=== PATIENT | female | born 1940 | race Caucasian/White ===

== ENCOUNTER 2023-10-03 00:27 | Inpatient (IN) | payer OTHER, SELFPAY ==
[2023-10-02 22:46] VITALS: BP 126/79; BMI 17.8
[2023-10-02 22:48] VITALS: BP 126/79
[2023-10-02 23:00] VITALS: BP 120/78
[2023-10-02 23:08] LABS: % Basophils 0.8 % (0-2); % Eosinophils 4.6 % (0-6); % Immature Granulocytes 0.3 % (0-0.5); % Lymphocytes 21.7 % (20.5-51.1); % Neutrophils 63.6 % (42.2-75.2); Absolute Basophils 0.1 10^3/uL (0-0.2); Absolute Eosinophils 0.3 10^3/uL (0-0.7); Absolute Lymphocytes 1.4 10^3/uL (1.2-3.4); Absolute Monocytes 0.6 10^3/uL (0.1-0.6); Absolute Neutrophils 4.2 10^3/uL (1.4-6.5); Hematocrit 35.6 % (37.0-47.0); Hemoglobin 12.2 g/dL (12.0-16.0); Mean Corp Hgb Conc. 34.3 g/dL (33.0-37.0); Mean Corpuscular Volume 99.2 fL (81.0-99.0); Mean Platelet Volume 9.1 fL (7.4-10.4); Nucleated Red Blood Cells % 0 %; Platelet Count 237 10^3/uL (130-400); Red Blood Cell Count 3.59 10^6/uL (4.20-5.40); Red Cell Dist. Width 14.1 % (11.5-14.5); White Blood Cell Count 6.6 10^3/uL (4.8-10.8)
--- NOTE | 2023-10-02 23:25 | ED.GENMED ---
History of Present Illness
General
Chief Complaint: Fall
Time Seen by Provider: 10/02/23 23:25
Travel History
Have you had any contact with someone who has COVID-19?: No
Do you have any symptoms of coronavirus? Fever > 100 degrees, chills, cough, shortness of breath, sore throat, loss of taste or smell, muscle aches, or headache?: No
History of Present Illness
History of Present Illness:
HPI: Patient came in from home by ambulance. She was going up a few steps and fell as she lost her balance. She primarily complains of left hip pain. She is on Eliquis but did not strike her head. She was unable to walk after the injury.
EXAM:
GENERAL: Well appearing in no distress
HEENT: Moist oral mucosa
CARDIOVASCULAR: No murmurs, normal heart rate, regular rhythm, No chest wall tenderness
PULMONARY: No respiratory distress, breath sounds are clear and equal
ABDOMEN: Soft with no peritoneal signs, no tenderness
NEUROLOGIC: Excellent strength all extremities, no coordination deficits
PSYCHIATRIC: Appropriate mental status, normal insight and judgement, however there may be some mild cognitive deficits
EXTREMITIES: There is markedly decreased active range of motion at the left hip. There is pain with pelvic squeeze on the left side, there is pain with passive range of motion into rotation at the left hip
SKIN: No rash, no lesions
TIME OF INITIAL ENCOUNTER: 11:30 PM
NUMBER AND COMPLEXITY OF PROBLEMS ADDRESSED AT THE ENCOUNTER
� Chronic conditions affecting care: A-fib on Eliquis, Raynaud's, SVT/PAT, anemia
� Acute Exacerbation and/or Progression of Chronic Illness: This is an acute problem
� Differential Diagnosis includes: Hip fracture, hip dislocation, pelvis contusion, pelvis fracture
AMOUNT AND/OR COMPLEXITY OF DATA TO BE REVIEWED AND ANALYZED
� I performed an independent evaluation of and my interpretation is:
EKG:
CT:
X-rays: I personally reviewed x-rays of the left hip and femur which suggest left intertrochanteric fracture
Laboratory Studies: CBC unremarkable, chemistries unremarkable
Other:
� Review of other/old records: I reviewed records, the patient was admitted here about a year ago with heart failure
� Clinical information was obtained by an independent historian: I spoke to at bedside
� Prescriptions/Medications Considered but not given:
� Further testing considered but not performed:
RISK OF COMPLICATIONS AND/OR MORBIDITY OR MORTALITY OF PATIENT MANAGEMENT
� Social determinants of health affecting care: Lives at home
� Discussion with other providers: Notified Dr. Parker, orthopedics; Dr. Tomas for admission at 11:50 PM
� Escalation of care including admission/observation vs risk of discharge considered: The patient comes in from home and imaging suggests left intertrochanteric fracture based on my reading. Basic labs unremarkable. Morphine
given for pain.
Past History
Past History
ED Past Medical History: Arrthythmia (Atrial fibrillation on Eliquis), Cancer (Breast with Left mastectomy), CHF, Hypercholesterolemia and Other (Renal syndrome, lymphedema, cataracts); Negative IDDM or NIDDM
ED Past Surgical History: Tonsilectomy and Other (Mastectomy, tooth extraction)
Social History
Tobacco: Former smoker
Alcohol: None
Drug: None
Personal:
Living: with family
Employment: Retired
Family History
Family History: Other (Noncontributory)
Phy Exam
Physical Exam
Physical Exam:
See HPI
Course
Orders/Labs/Results
Orders:
Orders
10/02/23 22:53
Hip, Left 2-3 Views [CR Hip - LT w/wo Pel 2-3 Vw*] Urgent
Comment:
Reason For Exam: fall
Include a pelvis x-ray?: Yes
10/02/23 23:00
Flush (0.9% Sodium Chloride) [Flush (Nss)] See Dose Instructions IV PER PROTOCOL
Femur, Left 2 View [CR Femur - Left Min 2 Vw] Urgent
Comment:
Reason For Exam: fall
10/02/23 23:01
CMP [Comprehensive Metabolic Panel] Urgent
Complete Blood Count/With Diff Urgent
10/02/23 23:38
Morphine Sulfate 2 mg IV NOW STA
Ondansetron Injectable [Zofran] 4 mg IV NOW STA
10/03/23 00:05
EKG [Electrocardiogram (*1)] Routine
Reason for Study: PreOp
10/03/23 00:11
Admit/Transfer Patient As Directed
Co-Sign Provider:
Level of Care: Inpatient admission
Assign to:: Telemetry
Physician / Group: raul
Diagnosis: Suspect acute Lt Hip fx, acute ambulatory dysfunction s/p Fall
Reason for Telemetry: Arrhythmia
Date to Stop Telemetry: 10/06/23
Time to Stop Telemetry: 11:00
Reason for Hospitalization: Suspect acute Lt Hip fx, acute ambulatory dysfunction s/p Fall
Expected length of stay greater than two midnights?: Yes
ELOS- Estimated Length of Stay in days: 3
I certify the patient meets the requirements for IP care: Yes
10/03/23 00:13
Code Status As Directed
Resuscitation Status: Full Code
10/03/23 01:13
HYDROmorphone [Dilaudid] 0.25 mg IV Q3HPRN PRN
Magnesium Hydroxide [Milk of Magnesia] 30 ml PO DAILYPRN PRN
Oxycodone [Roxicodone] 5 mg PO Q4HPRN PRN
Tamsulosin [Flomax] 0.4 mg PO DAILYPRN PRN
10/03/23 01:13
ORTHOPEDIC CONSULT Routine
Consulting Provider: Tommy Parker
Was physician already notified: Yes
Reason for consult: Suspect acute Lt Hip fx, acute ambulatory dysfunction s/p Fall
Activity As Directed
Activity Level: With Assistance
Bladder Scan As Directed
Follow Bladder Retention/Intermittent Cath Algorithm?: Yes
PRN if no void in __ hours: 6
Comment: if not voiding 6 hrs upon arrival to floor, bladder scan & follow algorithm
Intake/ Output As Directed
Frequency: Per unit guidelines
Pneumatic Compression Sleeves As Directed
Type: Knee high
Straight Cath As Directed
Frequency: Per Retention Algorithm
Additional Instructions: straight cath as needed per acute urinary retention algorithm for 24 hrs
Additional Instructions: for bladder scan greater than 400 mL
Vital Signs As Directed
Frequency: Per unit guidelines
DX Deep Vein Thrombosis Video Routine
10/03/23 04:00
Acetaminophen [Tylenol] 650 mg PO Q4HWA
10/03/23 Breakfast
NPO
Allow oral meds: Yes
Allow clear liquids: Sips of Clears
NPO with Ice Chips: Yes
10/03/23 08:00
Dapagliflozin [Farxiga] 10 mg PO DAILY
Furosemide [Lasix] 20 mg PO DAILY
Sotalol [Betapace] 80 mg PO DAILY
10/03/23 20:00
Docusate Sodium [Colace] 100 mg PO BID
Sennosides [Senokot] 17.2 mg PO BID
10/06/23 11:00
DC Protocol for Telemetry ONCE
Abnormal Lab Results
10/02/23
23:01
RBC 3.59 L 10^6/uL
(4.20-5.40)
Hct 35.6 L %
(37.0-47.0)
MCV 99.2 H fL
(81.0-99.0)
MCH 34.0 H pg
(27.0-31.0)
BUN 19 H mg/dl
(7-17)
10/02/23 23:01
10/02/23 23:01
Vital Signs
Initial and Last Documented VS:
Initial Vital Signs
Temp Pulse Resp BP Pulse Ox
97.8 F 66 12 126/79 91
10/02/23 22:46 10/02/23 22:46 10/02/23 22:46 10/02/23 22:46 10/02/23 22:46
Last Documented Vital Signs
Temp Pulse Resp BP Pulse Ox
97.8 F 66 12 126/79 91
10/02/23 22:46 10/02/23 22:46 10/02/23 22:46 10/02/23 22:46 10/02/23 22:46
*Critical Care Note
Total Time (30-74mins, 75-104mins- exclusive of procedures): Not Applicable
ED Attending Note
-
Portions of this chart may have been created with voice recognition software.� Occasional wrong word or��sound alike� substitutions may have occurred due to the inherent limitations of voice recognition software.
Discharge Plan
Departure
Patient Disposition: Admit
Date of Disposition: 10/02/23
Time of Disposition: 23:45
Presentation/result/management discussed w/ accepting MD/DO: Hospitalist
Discharge Problem:
Closed fracture of left hip
Interventions
Interventions:
*Risk Screen - Suicide Last Done: 10/02/23 22:46
*General Assessment Last Done: 10/02/23 22:46
*Neglect/Abuse Screening Last Done: 10/02/23 22:46
ED- Fall Risk Assessment Last Done: 10/02/23 23:00
*ED COVID-19 Vaccine History Last Done: 10/02/23 22:46
*Nursing Disposition Last Done: 10/03/23 01:07
ED-Musculoskeletal Assessment Last Done: 10/02/23 23:48
ED- Neurological Assessment Last Done: 10/02/23 23:00
ED-Skin Assessment Last Done: 10/02/23 23:48
Discharge Date and Time
Discharge Date/Time: 10/03/23 01:07
[2023-10-02] MEDS: MORPHINE SULFATE 2 MG IV (23:45)
[2023-10-02] MEDS: ZOFRAN 4 MG IV (23:45)
[2023-10-02 23:50] LABS: ALT (SGPT) 14 U/L (0-35); AST (SGOT) 30 U/L (14-36); Alkaline Phosphatase 82 U/L (38-126); Blood Urea Nitrogen 19 mg/dl (7-17); Calcium 9.3 mg/dl (8.4-10.2); Carbon Dioxide 28 mmol/L (22-30); Chloride 101 mmol/L (98-107); Estimated Creatinine Clearance 55 ml/min; Glucose 96 mg/dl (70-99); Potassium 4.3 mmol/L (3.5-5.1); Sodium 137 mmol/L (135-145); Total Bilirubin 0.6 mg/dl (0.2-1.3); eGFR > 60.00
[2023-10-03] VITALS (15 sets, daily range): BP systolic 96–137; BP diastolic 46–77; BMI 17.5; BMI 17.4
--- NOTE | 2023-10-03 00:06 | HPS.HSE ---
Family Physician
-
Family Physician: Pete Ochoa PA-C
Chief Complaint
-
fall and Lt hip pain
History of Present Illness
82F BIB EMS HX Prx AF on Sotalol and chr Eliquis, HX HFpEF seen at ER for fall and can�t walk due to left hip pain,
Evaluation fo fall:
- report she loss balance when going up the steps
- Then fall on the Lt hip but denied head strike
- Lt hip pain immediately and unable wt bear and walk
Medical History
Past Medical History
Past Medical History: Reports Other
Additional Past Medical History:
Paroxysmal Atrial Fibrillation
Cognitive Impairment
Breast CA s/p Left Mastectomy
Past Surgical History: Reports Other
Additional Past Surgical History:
Left Mastectomy with Lymph Node Dissection
Catarats
Social History
Tobacco: Former Smoker
Alcohol: Occasional
Personal:
Living: With Family
Family History
Family History: Not pertinent
Allergies / Home Medications
Allergies reflects when Allergies were last updated in [facility].
Home Medications with original date entered in [facility]
Allergy/Medication List:
Allergies
Allergy/AdvReac Type Severity Reaction Status Date / Time
clarithromycin Allergy Unknown stomach Verified 08/18/22 17:05
upset
sulfamethoxazole Allergy Unknown Unknown Verified 08/18/22 17:05
trimethoprim Allergy Unknown Unknown Verified 08/18/22 17:05
amoxicillin [Amoxicillin] Allergy Unknown Verified 08/18/22 17:05
Home Medications
ascorbic acid (vitamin C) 500 mg chewable tablet (Vitamin C) 500 mg PO . DAILY AT NOON 01/23/08
acetaminophen 325 mg tablet 650 mg PO Q4HPRN PRN PAIN 06/12/17
apixaban 5 mg tablet (Eliquis) 5 mg PO BID ##60 06/16/17
sotalol 80 mg tablet 80 mg PO BID 03/08/19
Review of Systems
-
Constitutional: Reports No Symptoms
EENT: Reports No Symptoms
Respiratory: Reports No Symptoms
Cardiac: Reports No Symptoms
Abdomen/GI: Reports No Symptoms
: Reports No Symptoms and See HPI
Skin: Reports No Symptoms
Neurological: Reports No Symptoms
Endocrine: Reports No Symptoms
Hematologic/Lymphatic: Reports No Symptoms
Psych: Reports No Symptoms
Physical Exam
Vital Signs
Vital Signs
Temp Pulse Resp BP Pulse Ox
97.8 F 66 12 126/79 91
10/02/23 22:46 10/02/23 22:46 10/02/23 22:46 10/02/23 22:46 10/02/23 22:46
Physical Exam
General: Comfortable and Conversant (Slight conversational dyspnea)
HEENT: Moist mucous membranes and Atraumatic
Respiratory: Non Labored Respirations and Decreased Breath Sounds (Throughtout )
Cardiac: S1/S2 and Regular Rhythm; No Murmur
GI: Soft, Non Tender and Normal Bowel Sounds
Musculoskeletal: No Clubbing, No Cyanosis, Edema, Left Lower Extremity (2 plus ), Edema, Right Lower Extremity (Lt Kristyn; shortened and externaly rotated ) and Other (markedly decreased active range of motion at the left hip. pain with pelvic
squeeze on the left side, there is pain with passive range of motion into rotation at the left hip)
Skin: Warm and Dry; No Rash
Neuro: Awake, Alert and Nonfocal/grossly intact
Psych: Calm
Laboratory Results
-
10/02/23 23:01
10/02/23 23:
Laboratory Results
Total Bilirubin 0.6 mg/dl (0.2-1.3) 10/02/23 23:01
AST 30 U/L (14-36) 10/02/23 23:
ALT 14 U/L (0-35) 10/02/23 23:01
Alkaline Phosphatase 82 U/L (38-126) 10/02/23 23:01
Data Reviewed
-
Diagnostic Radiology: Discussed with Physician
Lab Data: Labs Reviewed by me
Old Records: Reviewed
Impression/Plan
-
Reviewed VS: unremarkable noted HR at 66
Data
Unremarkable CBC
Pending CMP
Prelim hip XR ? Lt hip Fx - lucency at Lt intertrochateric
08/19/22 TTE
Nl LVEF and RVEF
Last hospitalist admission: 08/18/22 - 08/22/22
P Dx:
Acute hypoxic respiratory insufficiency
Acute HFpEF
NMITE
Hypervolemic hyponatremia
Paroxysmal AF
S Dx:
HX breast cancer s/p left mastectomy
ASSESSMENT & PLAN
Suspect acute Lt Hip fx
Acute Lt hip pain with pelvic compression and decreased active RoM
Acute ambulatory dysfunction
s/p Fall at home due to loss balance on the steps
Denied striking head
RCRI 1 point: Class II risk but Not prohibit for ortho surgery
Benefits of OR if indicated outweigh risk of surgery
Denied CP, SoB, palpitation
- f/u final hip XR
- held Eliquis for now - last dose was at 10pm 10/03/23
- EKG
- Ortho consulted by ER
Paroxysmal AF
- on Sotalol
- held Eliquis in case ortho OR in AM - last dose was
HX HFpEF
-cont.Farxiga
Hx Breast CA s/p Left Mastectomy
DVT proph: SCD
Code: Full
IP TLM
--- NOTE | 2023-10-03 01:20 | PTCARENOTE ---
pt arrived on unit 10/03/23 at 01:10. Pt Prelim hip XR ? Lt hip Fx - lucency at Lt intertrochateric per hospitalist report. PT AOx3 but cognitive impaired, could not remember her address ot phone number. Pt's bed in a low position, call light in
reach, bed alarm set. Pt NPO for possible surgery
[2023-10-03] MEDS: TYLENOL 650 MG PO ×4 (03:36→23:59)
--- NOTE | 2023-10-03 07:31 | CON.ORTHO ---
Consultation
-
Date/Time Consultation Requested: 10/02/23, time unknown
Date/Time Consultation Performed: 10/03/23 @7:30am
Requesting Provider: ER Physician
Performing Provider: Mi Askew PA-C, Tommy Parker DO
Reason for Consultation: left hip fracture
Consultation - Orthopedics
History
HPI: 82yo female presented to [facility] for left hip pain. She reports that last evening she was walking from her family room to her kitchen to take her evening medications. She had to go up two stairs and when she got to the top step, she
lost her balance and fell backwards, landing on her left side. She was ambulating with her walker at the time of her fall. She was unable to get up. She was brought the [place] [facility] by EMS for evaluation. She endorses pain in the left hip and thigh
with any movement. Currently, she is resting in bed and states that her pain is well controlled if she is not moving. She denies any other injuries. She states that she did not hit her head. She takes Eliquis and reports her last dose was 10/02/23 at
10am.
PAST MEDICAL HISTORY: Atrial fibrillation, breast cancer
PAST SURGICAL HISTORY: Left mastectomy with lymph node dissection, cataracts
SOCIAL HISTORY: former smoker, quit years ago. Drinks wine rarely. Ambulates with a walker at baseline. Lives at home with her
FAMILY HISTORY: Non contributory
REVIEW OF SYSTEMS: 12 point review of systems obtained and negative except those mentioned in the HPI
Allergies / Home Medications
Allergy/AdvReac Type Severity Reaction Status Date / Time
clarithromycin Allergy Unknown stomach Verified 10/02/23 22:52
upset
sulfamethoxazole Allergy Unknown Unknown Verified 10/02/23 22:52
trimethoprim Allergy Unknown Unknown Verified 10/02/23 22:52
amoxicillin [Amoxicillin] Allergy Unknown Verified 10/02/23 22:52
�Medication �Instructions �Recorded
apixaban 5 mg tablet (Eliquis) 5 mg PO BID ##60 06/16/17
sotalol 80 mg tablet 80 mg PO DAILY 03/08/19
furosemide 20 mg tablet 20 mg PO DAILY #1 tab 08/22/22
dapagliflozin propanediol 10 mg 10 mg PO DAILY 10/02/23
tablet (Farxiga)
Vital Signs / Lab Results
Temp Pulse Resp BP Pulse Ox
98.1 F 83 14 119/75 98
10/03/23 03:24 10/03/23 03:24 10/03/23 03:24 10/03/23 03:24 10/03/23 03:24
10/02/23 23:01
10/02/23 23:01
RADIOGRAPHIC FINDINGS:
Xrays left hip and femur show intertrochanteric fracture
PHYSICAL EXAM:
General: AAOx3, elderly female in no acute distress
HEENT: NCAT, sclera anicteric, normal hearing
Heart: No JVD
Lungs: Normal work of breathing on room air
MSK: Directed exam of left hip reveals skin intact. +tenderness to palpation of the lateral hip, groin, and thigh. ROM hip deferred. +Log roll. Able to plantarflex/dorsiflex the ankle. Calf soft and nontender. NVI distally.
Assessment / Plan
ASSESSMENT: 82yo female admitted to the hospital for left intertrochanteric femur fracture
PLAN: Unfortunately, Mrs. Mccloud sustained a left intertrochanteric hip fracture following a mechanical fall last night. The treatment options were reviewed with the patient. Recommend operative fixation. The risks, benefits, potential
complications, and expected postoperative course were reviewed. Plan for OR today for left gamma nail under the direction of Dr. Fletcher. Surgical and blood consents obtained and placed on chart. 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 Type and screen ordered. Please
continue to hold Eliquis. She is medically cleared. She is to be on bedrest until postop. Remain NPO. Continue with pain management as needed. Will continue to follow along.
[2023-10-03] MEDS: FARXIGA 10 MG PO (08:58)
[2023-10-03] MEDS: BETAPACE 80 MG PO (08:59)
--- NOTE | 2023-10-03 09:02 | W.PN.UPDATE ---
Update Note
Progress Note Update
Patient seen and examined after post midnight admission. Denies chest pain or shortness of breath. Vital signs stable. No acute distress, regular rate and rhythm, normal S1-S2. Clear to auscultation bilaterally. Left femur x-ray with acute
angulated left intertrochanteric hip fracture. Patient for OR today. Plan as outlined in the H&P done after earlier on today's date.
[2023-10-03 09:03] LABS: Glucose - Point of Care 103 mg/dl (70-99)
[2023-10-03] MEDS: DILAUDID 0.25 MG IV (09:06)
--- NOTE | 2023-10-03 12:09 | CM ---
Patient seen bedside.
IA completed.
Patient lives with spouse and son in a rancher style home with 1-2 steps to enter.
Patient independent prior to admission with RW.
Patient has been in [facility] in the past and would like to retuirn there for therapy.
patient for OR today, dx hip fx.
Referral for skilled rehab.
PCP: Dr Jacobs
Pharmacy: [facility]
Plan: skilled rehab when stable. f/u post op.
[2023-10-03] MEDS: TYLENOL PO ×2 (12:25→19:33)
--- NOTE | 2023-10-03 19:00 | PTCARENOTE ---
Pt arrived in bed from PACU post ORIF L hip. Pt AAOX3. VSS. Pt complains of no pain. aat the bedside. Bed in lowest position, locked and call villafana within reach.
[2023-10-03] MEDS: NORMOSOL-R 1000 IV (20:58)
[2023-10-03] MEDS: SENOKOT 17.1999999999999993 MG PO (21:03)
[2023-10-03] MEDS: COLACE 100 MG PO (21:03)
[2023-10-03] MEDS: ROXICODONE 10 MG PO (21:11)
[2023-10-03] MEDS: ANCEF 5 IV (23:59)
[2023-10-04] VITALS (9 sets, daily range): BP systolic 84–99; BP diastolic 42–51; PULSE 82; O2SAT 88–90
--- NOTE | 2023-10-04 05:19 | W.PN.UPDATE ---
Update Note
Progress Note Update
Patient is hypotensive with SBP in 80s hr 84, symptomatic, patient is complaining of dizziness. One time midodrine 5mg, IVF NSS 250cc bolus currently on Normosol 100cc/hr, hgb level 12.2 on admission dropped down to 9.2 this morning post surgery,
will monitor hgb level for any changes.
[2023-10-04] MEDS: TYLENOL 650 MG PO ×4 (05:29→23:55)
[2023-10-04] MEDS: ProAmatine 5 MG PO (05:35)
[2023-10-04] MEDS: NSS 250 IV (05:39)
[2023-10-04 05:44] LABS: % Basophils 0.3 % (0-2); % Eosinophils 1.9 % (0-6); % Immature Granulocytes 0.2 % (0-0.5); % Lymphocytes 20.4 % (20.5-51.1); % Monocytes 12.5 % (1.7-9.3); % Neutrophils 64.7 % (42.2-75.2); Absolute Eosinophils 0.1 10^3/uL (0-0.7); Absolute Lymphocytes 1.2 10^3/uL (1.2-3.4); Absolute Monocytes 0.7 10^3/uL (0.1-0.6); Absolute Neutrophils 3.8 10^3/uL (1.4-6.5); Hematocrit 27.5 % (37.0-47.0); Mean Corp Hgb Conc. 33.5 g/dL (33.0-37.0); Mean Corpuscular Hgb 34.1 pg (27.0-31.0); Mean Corpuscular Volume 101.9 fL (81.0-99.0); Mean Platelet Volume 8.5 fL (7.4-10.4); Nucleated Red Blood Cells % 0 %; Platelet Count 150 10^3/uL (130-400); White Blood Cell Count 5.8 10^3/uL (4.8-10.8)
[2023-10-04 06:06] LABS: Hemoglobin 9.2 g/dL (12.0-16.0)
[2023-10-04 06:19] LABS: Blood Urea Nitrogen 22 mg/dl (7-17); Calcium 8.3 mg/dl (8.4-10.2); Carbon Dioxide 26 mmol/L (22-30); Chloride 104 mmol/L (98-107); Estimated Creatinine Clearance 46 ml/min; Glucose 78 mg/dl (70-99); Potassium 4.2 mmol/L (3.5-5.1); Sodium 136 mmol/L (135-145); eGFR > 60.00
[2023-10-04] MEDS: NORMOSOL-R 1000 IV ×2 (06:23→17:30)
--- NOTE | 2023-10-04 07:34 | W.PN.HOSP.TC ---
Addendum entered and electronically signed by Gabe Lazo MD 10/04/23 12:10:
Moderate protein calorie malnutrition
Original Note:
Today's Communication/Plan
-
see bold
Assessment / Plan
Assessment / Plan
Gen: NAD, Awake and alert,
Eyes: EOMI, PERRLA, no scleral icterus.
Neck: supple.
CV: RRR, +S1/S2, no m/r/g.
Resp: CTAB, no rales, wheezes, or rhonchi.
Abd: +BS, soft, NT, ND
Skin: No rashes. L hip with C/D/I dressing, no surrounding hematoma/ecchymoses
Neuro: CN 2-12 intact, non-focal.
Psych: Normal mood and affect.
L hip Xray: Acute angulated left intertrochanteric hip fracture. New.
Acute Lt Hip fx:
-s/p surgical repair 10/03/23 (intramedullary nail)
-as per discussion with Dr. Fletcher on 10/04/23 pt ow WBAT and Eliquis can be resumed
-Acute blood loss anemia due to surgery, trend Hb
Paroxysmal AF:
-cont Sotalol
-Eliquis can be restarted as per ortho
-no evidence of active bleeding at this moment
-restart Eliquis
Chronic HFpEF:
-cont Farxiga
-hold lasix with hypotension
Hypotension:
-Hold Lasix
-s/p IV fluids and midodrine
-cont IVFs
h/o Breast CA s/p Left Mastectomy
FULL/Eliquis
Anticipated Discharge: 24 - 48 hours
Subjective/Interval History
-
Date of Service: October 04, 2023
Objective Data
-
Labs:
Laboratory Results
10/04/23
05:27
WBC 5.8
Hgb 9.2 L D
Hct 27.5 L
Plt Count 150 D
Sodium 136
Potassium 4.2
Chloride 104
Carbon Dioxide 26
BUN 22 H
Creatinine 0.7
Glucose 78
Calcium 8.3 L
Vital Signs:
Vital Signs
Temp Pulse Resp BP Pulse Ox
97.2 F 84 24 90/46 93
10/04/23 03:44 10/04/23 05:35 10/04/23 03:44 10/04/23 07:29 10/04/23 03:44
I&O
10/03/23 10/04/23 10/05/23
06:59 06:59 06:59
Intake Total
Balance
--- NOTE | 2023-10-04 07:49 | W.PN.ORTHO ---
Today's Communication / Plan
-
82 yo F POD1 left gamma nail under the direction of Dr. Fletcher
--Weight bearing as tolerated to left lower extremity with assistive device. We appreciate the assistance of PT/OT.
--Ok to resume Eliquis.
--Pain control per primary. Ice and elevation for edema control.
--Maintain Aquacel dressing until 7-10 days post-op. Staple removal at 2 weeks post-op. Follow up outpatient at 4 weeks post-op.
--Case management consult for dc planning.
--Hgb 9.2 this AM. Continue to monitor.
--Please reach out with any additional orthopedic questions or concerns.
Assessment
.
Distal Motor Intact: Yes
Dressing:
Clean, dry and intact.
Plan
.
Surgery / Date: Left hip gamma nail, [facility], 10/02
DVT Prophylaxis: Other (Eliquis)
Activity:
Out of bed.
PT/OT
Subjective
.
.:
Ms. Mccloud is POD1 following her left hip gamma nail performed by Dr. Fletcher. She is resting comfortably in bed this morning, and denies any pain at present. She has no questions or concerns at this time.
Vital Signs and Labs
.
Vital Signs and Labs:
Lab Results
10/04/23 05:27
10/04/23 05:27
Temp Pulse Resp BP Pulse Ox
97.2 F 84 24 90/46 93
10/04/23 03:44 10/04/23 05:35 10/04/23 03:44 10/04/23 07:29 10/04/23 03:44
Physical Exam
-
Directed exam of the left lower extremity reveals surgical dressings clean, dry and intact. Mild tenderness to palpation about the anterior hip. Thigh soft and compressible. Calf soft and nontender. Patient able to wiggle toes, plantar and dorsiflex
ankle. Neurovascularly intact distally.
[2023-10-04] MEDS: ANCEF 5 IV (08:44)
[2023-10-04] MEDS: BETAPACE 80 MG PO (08:45)
[2023-10-04] MEDS: SENOKOT 17.1999999999999993 MG PO (08:45)
[2023-10-04] MEDS: COLACE 100 MG PO (08:45)
[2023-10-04] MEDS: FARXIGA 10 MG PO (08:45)
[2023-10-04] MEDS: TYLENOL PO ×2 (08:45→14:28)
--- NOTE | 2023-10-04 09:29 | PN.CDI ---
CDI
- -
CDI:
Physician Documentation Request
Admit Date: 10/03/23 00:27
Dear Doctor Clifton,
Please review the following and provide your response in the progress notes.
Clinical Indicators:
Pt admitted with Acute angulated left intertrochanteric hip fracture.
Documented per nutrition consult, ' CBW 101lbs 6 oz (BMI 17.4-underweight) 10/02. As per current clinical data pt indciated wt loss of 2-13lbs and denied eatin gpoorly. RD met with pt to clarify wt loss-pt unable to provide amount lost or what her
UBW was. Reviewed external medical summary report which revealed on 08/04/23 pt weighed 109lbs. 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 Pt was observed with
protruding clavicle, hollow orbital, depressed temporal. Pt meets ASPEN and AND criteria for moderate protein calorie malnutrition of chronic illness with NFPE, and decreased intake....Subcutaneous Loss over orbital severity mild, Clavicle severity
mild , Temporal Severity Mild ...'
Based on the above information and your assessment, which of the following most accurately represents the patient's nutritional status?
Moderate protein Calorie Malnutrition
Mild Protein calorie Malnutrition
Other (please specify)
[place] Criteria (ACP Hospitalist 2017)
2 or more criteria must be present for either
non severe or severe malnutrition
Note that the criteria differs related to the
presence of an acute or chronic illness
Acute Illness Chronic Illness
Energy Intake Non Severe: <75% for >7 days Non Severe: <75% for >1 month
Severe: <50% for >5 days Severe: <75% for >1 month
Weight Loss Non Severe: 1-2% over 1 week Non Severe: 5% over 1 month
5% over 1 month 7.5% over 3 months
7.5% over 3 months 10% over 6 months
1 year N/A 20% over 1 year
Severe: >2% over 1 week Severe: >5% over 1 month
>5% over 1 month >7.5% over 3 months
>7.5% over 3 months >10% over 6 months
1 year N/A >20% over 1 year
Body Fat Non Severe: Mild Decrease Non Severe: Mild Loss
Severe: Moderate Decrease Severe: Severe Loss
Muscle Mass Non Severe: Mild Decrease Non Severe: Mild Loss
Severe: Moderate Decrease Severe: Severe Loss
Fluid Accumulation Non Severe: Mild Accumulation Non Severe: Mild Accumulation
Severe: Moderate to severe Severe: Moderate to severe
accumulation accumulation
Reduced [place] Strength Non Severe: N/A Non Severe: N/A
Severe: Measurably reduced Severe: Measurably reduced
Use of terms such as suspected, likely, concern for, or probable (associated with a specific diagnosis that is being evaluated, monitored, or treated as if it exists) are acceptable and can be coded in the inpatient setting, when documented at the
time of discharge.
Thank you,
Natalia Aguilar RN
CDI Specialist
[facility] [employer]
Please use your independent medical judgment in providing your response.
--- NOTE | 2023-10-04 10:18 | CM ---
Addendum entered by Cheryl Arrington 10/04/23 14:01:
Left VM for spouse.
Accepted at [facility] pending bed availability the day of d/c. Will need [facility] auth.
Original Note:
Spoke with patient bedside.
OOB in chair.
PT/OT (P).
Patient agreeable to skilled rehab.
Plan Skilled rehab once bed available and medically stable. Patient will need insurance auth.
[2023-10-04] MEDS: ELIQUIS 5 MG PO ×2 (10:24→22:00)
[2023-10-04] MEDS: SENOKOT PO ×2 (22:00→22:04)
[2023-10-04] MEDS: COLACE PO ×2 (22:00→22:04)
[2023-10-05] MEDS: NORMOSOL-R 1000 IV (03:00)
[2023-10-05 03:21] VITALS: BP 94/46
[2023-10-05] MEDS: TYLENOL 650 MG PO ×4 (04:59→17:03)
[2023-10-05] MEDS: ROXICODONE 10 MG PO (05:03)
[2023-10-05 06:09] LABS: % Basophils 0.4 % (0-2); % Eosinophils 1.7 % (0-6); % Immature Granulocytes 0.4 % (0-0.5); % Lymphocytes 22.4 % (20.5-51.1); % Monocytes 13.3 % (1.7-9.3); % Neutrophils 61.8 % (42.2-75.2); Absolute Eosinophils 0.1 10^3/uL (0-0.7); Absolute Lymphocytes 1.2 10^3/uL (1.2-3.4); Absolute Monocytes 0.7 10^3/uL (0.1-0.6); Absolute Neutrophils 3.3 10^3/uL (1.4-6.5); Hematocrit 24.2 % (37.0-47.0); Hemoglobin 7.8 g/dL (12.0-16.0); Mean Corp Hgb Conc. 32.2 g/dL (33.0-37.0); Mean Corpuscular Hgb 33.6 pg (27.0-31.0); Mean Corpuscular Volume 104.3 fL (81.0-99.0); Mean Platelet Volume 9.2 fL (7.4-10.4); Nucleated Red Blood Cells % 0 %; Platelet Count 140 10^3/uL (130-400); Red Blood Cell Count 2.32 10^6/uL (4.20-5.40); Red Cell Dist. Width 14.1 % (11.5-14.5); White Blood Cell Count 5.4 10^3/uL (4.8-10.8)
[2023-10-05 07:15] VITALS: BP 95/45
--- NOTE | 2023-10-05 07:20 | W.PN.ORTHO ---
Today's Communication / Plan
-
PT/OT
Weightbearing as tolerated with walker
Eliquis for DVT prophylaxis
Hemoglobin low may need transfusion if symptomatic
Skin clip removal 2 weeks postop and follow-up with orthopedics 4 weeks postop for x-ray
halfway facility once medically stable
Assessment
.
Distal Motor Intact: Yes
Dressing:
Clean, dry and intact.
Plan
.
Surgery / Date: Left hip gamma nail, Ritting, 10/02
DVT Prophylaxis: Other
Activity:
Out of bed.
PT/OT
Discharge Plan: SNF
Subjective
.
.:
Patient resting comfortably.
Vital Signs and Labs
.
Vital Signs and Labs:
Lab Results
10/05/23 04:43
10/04/23 05:27
Temp Pulse Resp BP Pulse Ox
98.2 F 84 18 94/46 92
10/05/23 03:21 10/05/23 03:21 10/05/23 03:21 10/05/23 03:21 10/05/23 03:21
--- NOTE | 2023-10-05 09:37 | W.PN.HOSP.TC ---
Today's Communication/Plan
-
see bold
Assessment / Plan
Assessment / Plan
Gen: NAD, Awake and alert,
Eyes: EOMI, PERRLA, no scleral icterus.
Neck: supple.
CV: remains RRR, +S1/S2, no m/r/g.
Resp: remains CTAB, no rales, wheezes, or rhonchi.
Abd: +BS, soft, NT, ND
Skin: No rashes.
Neuro: CN 2-12 intact, non-focal.
Psych: Normal mood and affect.
L hip Xray: Acute angulated left intertrochanteric hip fracture. New.
Acute Lt Hip fx:
-s/p surgical repair 10/03/23 (intramedullary nail)
-as per discussion with Dr. Fletcher on 10/04/23 pt ow WBAT and Eliquis can be resumed
-Acute blood loss anemia due to surgery, trend Hb, transfuse for Hb<7
Paroxysmal AF:
-cont Sotalol
-Eliquis can be restarted as per ortho
-no evidence of active bleeding at this moment
-Eliquis restarted 10/04/23
Chronic HFpEF:
-cont Farxiga
-holding lasix with hypotension
Hypotension:
-Hold Lasix
-s/p IV fluids and midodrine
-stop IVFs
-cont to monitor for symptoms related to blood pressure. Patient may be chronically hypotensive.
h/o Breast CA s/p Left Mastectomy
Moderate protein calorie malnutrition
FULL/Eliquis
Anticipated Discharge: Within 24 hours
Subjective/Interval History
-
Date of Service: October 05, 2023
No new complaints.
Objective Data
-
Labs:
Laboratory Results
10/05/23
04:43
WBC 5.4
Hgb 7.8 L
Hct 24.2 L
Plt Count 140
Vital Signs:
Vital Signs
Temp Pulse Resp BP Pulse Ox
97.8 F 88 18 95/45 92
10/05/23 07:15 10/05/23 07:15 10/05/23 07:15 10/05/23 07:15 10/05/23 07:15
I&O
10/04/23 10/05/23 10/06/23
06:59 06:59 06:59
Intake Total 2780 / 2780
Balance 2780 / 2780
[2023-10-05] MEDS: FARXIGA 10 MG PO ×2 (09:49→09:50)
[2023-10-05] MEDS: ELIQUIS 5 MG PO ×2 (09:49→19:54)
[2023-10-05] MEDS: COLACE 100 MG PO ×2 (09:49→19:54)
[2023-10-05] MEDS: SENOKOT 17.1999999999999993 MG PO ×2 (09:49→19:53)
[2023-10-05 09:51] VITALS: BMI 18.9
[2023-10-05] MEDS: BETAPACE 80 MG PO (10:09)
[2023-10-05] MEDS: NORMOSOL-R IV (10:43)
[2023-10-05 11:28] LABS: Iron 52 ug/dl (37-170)
[2023-10-05 11:37] LABS: Percent Saturation 21 % (20-50); Total Iron Binding Capacity 247 ug/dl (265-497)
[2023-10-05 12:35] VITALS: BP 92/53; PULSE 70; O2SAT 94
[2023-10-05 14:18] VITALS: BP 102/76; PULSE 110; O2SAT 95
[2023-10-05 15:16] VITALS: BP 126/59
[2023-10-05 15:55] LABS: Folate > 20.0 ng/ml (2.76-20); Vitamin B12 885 pg/ml (239-931)
[2023-10-05] MEDS: TYLENOL PO (19:54)
[2023-10-05 23:06] VITALS: BP 101/61
[2023-10-06] MEDS: TYLENOL PO ×2 (01:27→05:06)
--- NOTE | 2023-10-06 07:24 | W.PN.HOSP.TC ---
Addendum entered and electronically signed by Gabe Lazo MD 10/06/23 11:40:
Total time spent on d/c = 32 min. This included today's physical exam, progress note, review of laboratory and diagnostic data, preparation of discharge documents and prescriptions, and discussions about the pt's hospital course and discharge plan
with the patient and other medical practice assistant involved in the patient's care.
Addendum entered and electronically signed by Gabe Lazo MD 10/06/23 09:07:
Medically cleared for discharge. Case management aware.
Original Note:
Today's Communication/Plan
-
see bold
Assessment / Plan
Assessment / Plan
Gen: Remains NAD, Awake and alert,
Eyes: EOMI, PERRLA, no scleral icterus.
Neck: supple.
CV: Continues to remain RRR, +S1/S2, no m/r/g.
Resp: Continues to remain CTAB, no rales, wheezes, or rhonchi.
Abd: +BS, soft, NT, ND
Skin: No rashes.
Neuro: CN 2-12 intact, non-focal.
Psych: Normal mood and affect.
L hip Xray: Acute angulated left intertrochanteric hip fracture. New.
Acute Lt Hip fx:
-s/p surgical repair 10/03/23 (intramedullary nail)
-as per discussion with Dr. Fletcher on 10/04/23 pt ow WBAT and Eliquis can be resumed
-Acute blood loss anemia due to surgery, trend Hb, transfuse for Hb<7
Paroxysmal AF:
-cont Sotalol
-Eliquis can be restarted as per ortho
-no evidence of active bleeding at this moment
-Eliquis restarted 10/04/23
Chronic HFpEF:
-cont Farxiga
-holding lasix with hypotension
Hypotension:
-Hold Lasix
-s/p IV fluids and midodrine
-BP improved
-cont to monitor for symptoms related to blood pressure. Patient may be chronically hypotensive.
h/o Breast CA s/p Left Mastectomy
Moderate protein calorie malnutrition
FULL/Eliquis
Anticipated Discharge: Within 24 hours
Subjective/Interval History
-
Date of Service: October 06, 2023
No new complaints.
Objective Data
-
Vital Signs:
Vital Signs
Temp Pulse Resp BP Pulse Ox
99.1 F 88 18 101/61 93
10/05/23 23:06 10/05/23 23:06 10/05/23 23:06 10/05/23 23:06 10/05/23 23:51
I&O
10/05/23 10/06/23 10/07/23
06:59 06:59 06:59
Intake Total 2780 / 2780 440 / 440
Balance 2780 / 2780 440 / 440
[2023-10-06 07:25] VITALS: BP 127/69
[2023-10-06 08:22] LABS: Hematocrit 23.3 % (37.0-47.0); Hemoglobin 7.7 g/dL (12.0-16.0); Mean Corpuscular Hgb 34.1 pg (27.0-31.0); Mean Corpuscular Volume 103.1 fL (81.0-99.0); Mean Platelet Volume 9.4 fL (7.4-10.4); Platelet Count 155 10^3/uL (130-400); Red Blood Cell Count 2.26 10^6/uL (4.20-5.40); Red Cell Dist. Width 14.1 % (11.5-14.5); White Blood Cell Count 5.2 10^3/uL (4.8-10.8)
[2023-10-06 08:36] LABS: Blood Urea Nitrogen 22 mg/dl (7-17); Calcium 7.9 mg/dl (8.4-10.2); Carbon Dioxide 30 mmol/L (22-30); Chloride 104 mmol/L (98-107); Estimated Creatinine Clearance 57 ml/min; Glucose 92 mg/dl (70-99); Potassium 3.8 mmol/L (3.5-5.1); Sodium 136 mmol/L (135-145); eGFR > 60.00
[2023-10-06] MEDS: BETAPACE 80 MG PO (09:23)
[2023-10-06] MEDS: TYLENOL 650 MG PO ×2 (09:29→13:15)
[2023-10-06] MEDS: ELIQUIS 5 MG PO (09:29)
[2023-10-06] MEDS: COLACE PO ×2 (09:29→09:39)
[2023-10-06] MEDS: SENOKOT PO ×2 (09:29→09:40)
[2023-10-06 10:00] VITALS: BMI 19.2
[2023-10-06 11:20] VITALS: BP 110/59
--- NOTE | 2023-10-06 14:18 | CM ---
MD entered order for discharge.
Spoke with and pt in room.
Pt said she is ready for [facility].
IMM reviewed IMM signed on chart.
requested ambulance .
Postop ORIF l hip.
Pt on 2 liter oxygen.
SPoke with [facility] Patricia has a bed today.
Called [facility]ny mendoza spoke with [facility] clinical information provided.Approval # [id number] from 10/06/23 to 10/10/23 skilled level 1.
NRD call [phone] .
Above information give to [facility] .
Medical nec form completed auth number [id number] provided to Acute care ambulance.
[facility]
report [phone]
fax [phone]
PLAN To [facility] today
--- NOTE | 2023-10-06 14:37 | W.DCSUMMARY ---
Discharge Summary
Discharge Data
Date of Admission: 10/03/23
Date of Discharge: 10/06/23
-
Pending Results: No
Hospital Course
Primary diagnoses:
Left hip fracture status post intramedullary nail on October 03, 2023
Acute blood loss anemia due to surgery
Secondary diagnoses:
Chronic heart failure with preserved ejection fraction
Paroxysmal atrial fibrillation
h/o Breast CA s/p Left Mastectomy
Moderate protein calorie malnutrition
Consultants:
Orthopedics
Imaging:
L hip Xray: Acute angulated left intertrochanteric hip fracture. New.
83-year-old female who presented with mechanical fall resulting in a left hip fracture as outlined in the H&P done on admission. Hospital course or problems:
Acute Lt Hip fx: Left hip x-ray above. Patient underwent surgical repair by intramedullary nail on October 03, 2023. She tolerated the procedure well. She had acute blood loss anemia due to surgery. Her hemoglobin was stable and greater than 7 at
the time of discharge.
Hypotension: Patient's Lasix was held. She received IV fluids and midodrine and her blood pressure improved. The patient may have some degree of chronic hypotension.
Discharge Plan
-
Patient Disposition: Fpc/SNF
Discharge Diagnosis/Procedures: Left hip fracture status post intramedullary nail on October 03, 2023, acute blood loss anemia due to surgery
Condition: Good
Diet: Other diet
Additional Diets: Heart healthy
Activity: With assistance
Driving Restrictions: No driving
Bathing Restrictions: None
Blood Work: BMP and CBC in 1 week prescription from PCP
Referrals:
Pete Ochoa PA-C [Family Provider] - in less than 1 week
Prescriptions:
New
sennosides [Senna Laxative] 8.6 mg Tablet
17.2 mg PO BID Qty: 0 0RF
Continued
Eliquis 5 MG tablet
5 mg PO BID Qty: 60 3RF
sotalol 80 MG tablet
80 mg PO DAILY
dapagliflozin propanediol [Farxiga] 10 mg Tablet
10 mg PO DAILY
Discontinued
furosemide 20 mg Tablet
20 mg PO DAILY Qty: 1 0RF
Discharge Orders:
Discharge Patient (As Directed); Ordered 10/06/23
Ordered By: Gabe Lazo
Discharge Date and Time
Print Language: KYRGYZ
[2023-10-06 15:00] VITALS: BP 113/65
[2023-10-06 15:17] VITALS: BP 113/65; PULSE 76; O2SAT 96
[2023-10-06 15:18] VITALS: BP 113/64; PULSE 82; O2SAT 97
== END 2023-10-06 16:18 | DRG 481 ==
LOC: 2 SOUTH 00:27
PROVIDERS: Emergency Medicine; Nurse Practitioner Family; Orthopaedic Surgery Hand Surgery; ADMITTING PHYSICIAN Internal Medicine; ATTENDING PHYSICIAN Internal Medicine; CONSULT PHYSICIAN Orthopaedic Surgery; EMERGENCY PHYSICIAN Emergency Medicine; FAMILY PHYSICIAN Physician Assistant Medical
PROC: 0QS706Z Reposition Left Upper Femur with Intramedullary Internal Fixation Device, Open Approach (ICD-10-PCS; 2023-10-03)
DX: S72.142A Displaced intertrochanteric fracture of left femur, initial encounter for closed fracture (principal); D62 Acute posthemorrhagic anemia; E44.0 Moderate protein-calorie malnutrition; I50.32 Chronic diastolic (congestive) heart failure; Z68.1 Body mass index [BMI] 19.9 or less, adult; E78.00 Pure hypercholesterolemia, unspecified; I89.0 Lymphedema, not elsewhere classified; I95.81 Postprocedural hypotension; I48.0 Paroxysmal atrial fibrillation; R41.89 Other symptoms and signs involving cognitive functions and awareness; W10.8XXA Fall (on) (from) other stairs and steps, initial encounter; Y93.01 Activity, walking, marching and hiking; Y92.008 Other place in unspecified non-institutional (private) residence as the place of occurrence of the external cause; Z79.01 Long term (current) use of anticoagulants; Z87.891 Personal history of nicotine dependence; Z85.3 Personal history of malignant neoplasm of breast; Z90.12 Acquired absence of left breast and nipple; Z88.1 Allergy status to other antibiotic agents; Z88.0 Allergy status to penicillin; Z88.2 Allergy status to sulfonamides
CPT/HCPCS: 73502; 73552; 76000; 80048; 80053; 82607; 82728; 82746; 82962; 83540; 83550; 85025; 85027; 86850; 86900; 86901; 93005; 96374; 96375; 97163; 97167; 97530; 97535; 99285; C1713; C1769

== ENCOUNTER → 2023-10-11 12:14 | Outpatient (REF) | payer OTHER, SELFPAY ==
[2023-10-11 13:03] LABS: % Basophils 0.8 % (0-2); % Lymphocytes 28.7 % (20.5-51.1); % Monocytes 12.7 % (1.7-9.3); % Neutrophils 50.8 % (42.2-75.2); Absolute Eosinophils 0.3 10^3/uL (0-0.7); Absolute Immature Granulocytes 0.1 10^3/uL (0-0.05); Absolute Lymphocytes 1.4 10^3/uL (1.2-3.4); Absolute Monocytes 0.6 10^3/uL (0.1-0.6); Absolute Neutrophils 2.5 10^3/uL (1.4-6.5); Hematocrit 22.4 % (37.0-47.0); Hemoglobin 7.3 g/dL (12.0-16.0); Mean Corp Hgb Conc. 32.6 g/dL (33.0-37.0); Mean Corpuscular Hgb 33.8 pg (27.0-31.0); Mean Corpuscular Volume 103.7 fL (81.0-99.0); Mean Platelet Volume 8.8 fL (7.4-10.4); Nucleated Red Blood Cells % 0 %; Platelet Count 263 10^3/uL (130-400); Red Blood Cell Count 2.16 10^6/uL (4.20-5.40); White Blood Cell Count 4.9 10^3/uL (4.8-10.8)
[2023-10-11 13:12] LABS: Blood Urea Nitrogen 16 mg/dl (7-17); Calcium 8.4 mg/dl (8.4-10.2); Carbon Dioxide 27 mmol/L (22-30); Chloride 104 mmol/L (98-107); Glucose 77 mg/dl (70-99); Potassium 3.8 mmol/L (3.5-5.1); Sodium 136 mmol/L (135-145); eGFR > 60.00
== END ==
LOC: OLABP 12:14
PROVIDERS: ATTENDING PHYSICIAN Family Medicine
DX: D62 Acute posthemorrhagic anemia (principal); S72.002D Fracture of unspecified part of neck of left femur, subsequent encounter for closed fracture with routine healing; I48.0 Paroxysmal atrial fibrillation; I50.30 Unspecified diastolic (congestive) heart failure; E87.1 Hypo-osmolality and hyponatremia; N28.9 Disorder of kidney and ureter, unspecified; I89.0 Lymphedema, not elsewhere classified; Z85.3 Personal history of malignant neoplasm of breast; E44.0 Moderate protein-calorie malnutrition; R41.89 Other symptoms and signs involving cognitive functions and awareness
CPT/HCPCS: 36415; 80048; 85025

== ENCOUNTER → 2023-10-12 09:38 | Outpatient (REF) | payer OTHER, SELFPAY ==
[2023-10-12 10:47] LABS: Hematocrit 23.6 % (37.0-47.0); Hemoglobin 7.7 g/dL (12.0-16.0); Mean Corp Hgb Conc. 32.6 g/dL (33.0-37.0); Mean Corpuscular Hgb 33.9 pg (27.0-31.0); Mean Platelet Volume 8.9 fL (7.4-10.4); Platelet Count 305 10^3/uL (130-400); Red Blood Cell Count 2.27 10^6/uL (4.20-5.40); Red Cell Dist. Width 16.8 % (11.5-14.5); White Blood Cell Count 5.2 10^3/uL (4.8-10.8)
[2023-10-12 11:57] LABS: Blood Urea Nitrogen 18 mg/dl (7-17); Calcium 8.3 mg/dl (8.4-10.2); Carbon Dioxide 28 mmol/L (22-30); Chloride 105 mmol/L (98-107); Glucose 80 mg/dl (70-99); Potassium 4.1 mmol/L (3.5-5.1); Sodium 138 mmol/L (135-145); eGFR > 60.00
== END ==
LOC: OLABP 09:38
PROVIDERS: ATTENDING PHYSICIAN Family Medicine
DX: D62 Acute posthemorrhagic anemia (principal); I48.0 Paroxysmal atrial fibrillation; I50.30 Unspecified diastolic (congestive) heart failure; E87.1 Hypo-osmolality and hyponatremia; N28.9 Disorder of kidney and ureter, unspecified; I89.0 Lymphedema, not elsewhere classified; Z85.3 Personal history of malignant neoplasm of breast; E44.0 Moderate protein-calorie malnutrition; R41.89 Other symptoms and signs involving cognitive functions and awareness
CPT/HCPCS: 36415; 80048; 85027

== ENCOUNTER → 2023-10-17 10:53 | Outpatient (REF) | payer OTHER, SELFPAY ==
[2023-10-17 11:25] LABS: % Basophils 0.7 % (0-2); % Eosinophils 3.5 % (0-6); % Immature Granulocytes 0.5 % (0-0.5); % Lymphocytes 27.6 % (20.5-51.1); % Monocytes 8.5 % (1.7-9.3); % Neutrophils 59.2 % (42.2-75.2); Absolute Eosinophils 0.2 10^3/uL (0-0.7); Absolute Lymphocytes 1.6 10^3/uL (1.2-3.4); Absolute Monocytes 0.5 10^3/uL (0.1-0.6); Absolute Neutrophils 3.4 10^3/uL (1.4-6.5); Hematocrit 24.4 % (37.0-47.0); Hemoglobin 8.1 g/dL (12.0-16.0); Mean Corp Hgb Conc. 33.2 g/dL (33.0-37.0); Mean Corpuscular Hgb 34.9 pg (27.0-31.0); Mean Corpuscular Volume 105.2 fL (81.0-99.0); Mean Platelet Volume 8.7 fL (7.4-10.4); Nucleated Red Blood Cells % 0 %; Platelet Count 341 10^3/uL (130-400); Red Blood Cell Count 2.32 10^6/uL (4.20-5.40); Red Cell Dist. Width 18.4 % (11.5-14.5); White Blood Cell Count 5.7 10^3/uL (4.8-10.8)
== END ==
LOC: OLABP 10:53
PROVIDERS: ATTENDING PHYSICIAN Family Medicine
DX: D62 Acute posthemorrhagic anemia (principal); S72.002D Fracture of unspecified part of neck of left femur, subsequent encounter for closed fracture with routine healing; I48.0 Paroxysmal atrial fibrillation; I50.30 Unspecified diastolic (congestive) heart failure; E87.1 Hypo-osmolality and hyponatremia; N28.9 Disorder of kidney and ureter, unspecified; I89.0 Lymphedema, not elsewhere classified; Z85.3 Personal history of malignant neoplasm of breast; E85.3 Secondary systemic amyloidosis; E44.0 Moderate protein-calorie malnutrition; R41.89 Other symptoms and signs involving cognitive functions and awareness
CPT/HCPCS: 36415; 85025

== ENCOUNTER → 2023-10-20 09:50 | Outpatient (REF) | payer OTHER, SELFPAY ==
[2023-10-20 12:10] LABS: % Basophils 0.9 % (0-2); % Eosinophils 4.1 % (0-6); % Immature Granulocytes 0.3 % (0-0.5); % Lymphocytes 26.7 % (20.5-51.1); % Monocytes 7.6 % (1.7-9.3); % Neutrophils 60.4 % (42.2-75.2); Absolute Basophils 0.1 10^3/uL (0-0.2); Absolute Eosinophils 0.2 10^3/uL (0-0.7); Absolute Lymphocytes 1.6 10^3/uL (1.2-3.4); Absolute Monocytes 0.4 10^3/uL (0.1-0.6); Absolute Neutrophils 3.5 10^3/uL (1.4-6.5); Hematocrit 31.7 % (37.0-47.0); Hemoglobin 9.9 g/dL (12.0-16.0); Mean Corp Hgb Conc. 31.2 g/dL (33.0-37.0); Mean Corpuscular Hgb 34.7 pg (27.0-31.0); Mean Corpuscular Volume 111.2 fL (81.0-99.0); Mean Platelet Volume 8.7 fL (7.4-10.4); Nucleated Red Blood Cells % 0 %; Platelet Count 369 10^3/uL (130-400); Red Blood Cell Count 2.85 10^6/uL (4.20-5.40); Red Cell Dist. Width 19.1 % (11.5-14.5); White Blood Cell Count 5.8 10^3/uL (4.8-10.8)
[2023-10-20 12:35] LABS: Blood Urea Nitrogen 10 mg/dl (7-17); Calcium 8.8 mg/dl (8.4-10.2); Carbon Dioxide 26 mmol/L (22-30); Chloride 104 mmol/L (98-107); Glucose 87 mg/dl (70-99); Potassium 4.3 mmol/L (3.5-5.1); Sodium 138 mmol/L (135-145); eGFR > 60.00
== END ==
LOC: OLABP 09:50
PROVIDERS: ATTENDING PHYSICIAN Family Medicine
DX: D62 Acute posthemorrhagic anemia (principal); S72.002D Fracture of unspecified part of neck of left femur, subsequent encounter for closed fracture with routine healing; I48.0 Paroxysmal atrial fibrillation; I50.30 Unspecified diastolic (congestive) heart failure; E87.1 Hypo-osmolality and hyponatremia; N28.9 Disorder of kidney and ureter, unspecified; I89.0 Lymphedema, not elsewhere classified; Z85.3 Personal history of malignant neoplasm of breast; E44.0 Moderate protein-calorie malnutrition; R41.89 Other symptoms and signs involving cognitive functions and awareness
CPT/HCPCS: 36415; 80048; 85025

== ENCOUNTER 2024-05-21 20:08 | Inpatient (IN) | payer OTHER, SELFPAY ==
[2024-05-21] VITALS (12 sets, daily range): BP systolic 97–131; BP diastolic 63–95; BMI 17.4; BMI 17.7
--- NOTE | 2024-05-21 15:46 | EDRN ---
Dr. Bee brought to the pts bedside
[2024-05-21] MEDS: ADENOCARD 12 MG IV (15:53)
--- NOTE | 2024-05-21 15:53 | EDRN ---
Adenosine 12mg IV administered with Dr. Bee at the pts bedside
--- NOTE | 2024-05-21 15:55 | EDRN ---
the pt converted to Afib in the 60's, second EKG being performed
--- NOTE | 2024-05-21 16:05 | ED.GENMED ---
History of Present Illness
General
Chief Complaint: Heart Rate Problem
Source: patient
Exam Limitations: none
Time Seen by Provider: 05/21/24 15:57
Nursing documentation reviewed up to this point in time: agreed with
History of Present Illness
History of Present Illness:
Patient with history of paroxysmal atrial fibrillation on Eliquis, presents to ED from primary care physician's office secondary to sudden onset of shortness of breath, associated with increased heart rate, concerning for SVT. Patient states that
she has had similar symptoms in the past, secondary to atrial fibrillation. Denies chest pain. Denies nausea or vomiting. Denies dizziness. Denies recent illness. Denies recent change in medications or diet. Patient states that she did not
have any symptoms when she first went to her primary care's office, which was a routine scheduled outpatient evaluation.
Past History
Past History
ED Past Medical History: Arrthythmia (Atrial fibrillation on Eliquis), Cancer (Breast with Left mastectomy), CHF, Hypercholesterolemia and Other (Renal syndrome, lymphedema, cataracts); Negative IDDM or NIDDM
ED Past Surgical History: Tonsilectomy and Other (Mastectomy, tooth extraction)
Social History
Tobacco: Former smoker
Alcohol: None
Drug: None
Personal:
Living: with family
Employment: Retired
Family History
Family History: Other (Noncontributory)
Review of Systems
Review of Systems
Allergies reviewed?: Yes
All Other Systems: ROS reviewed and negative except as documented in HPI and ROS
Constitutional: Reports no symptoms
EENT: Reports no symptoms
Respiratory: Reports trouble breathing; Denies cough
Cardiac: Reports no symptoms; Denies chest pain
ABD/GI: Reports no symptoms; Denies nausea or vomiting
: Reports no symptoms
Musculoskeletal: Reports no symptoms
Skin: Reports no symptoms
Neurological: Reports no symptoms; Denies dizzy or headache
Phy Exam
Physical Exam
Physical Exam:
Physical Exam
General: mild distress, not acutely ill. afebrile
Head: nc/at. eomi
Neck: supple. normal range of motion. no jvd.
Heart: s1/s2 regular rate and rhythm, no murmur. equal radial pulses.
Lungs: mild respiratory distress. diminished breath sounds bilaterally
Abdomen: normal bowel sounds. not tender.
Neuro: alert and oriented x 3. no focal neurological deficits
Skin: no rash
Psychiatric: well kept. interactive and cooperative
Extremities: LE b/l pitting edema. no calf tenderness.
Scores
Heart Failure Risk
Heart Failure Risk Score: Yes
History of Stroke or TIA: No
History of intubation for respiratory distress: No
Heart rate on ED arrival >/= 110: Yes
SaO2 <90% on arrival on room air: Yes
HR >/=110 during 3min walk test (or too ill to perform test): Yes
ECG has acute ischemic changes: No
Urea >/=12mmol/L (BUN 33.6mg/dL): No
Serum CO2>/=35mmol/L: No
Troponin I or T elevated to NM Level (0.4mg/dL): No
NT-proBNP >/=5,000ng/L (5,000pg/ml): Yes
HF Risk Score: 4
Admission Status: HIGH RISK 26.1% Consider SNF treatment or admission to hospital
Course
Orders/Labs/Results
Orders:
Orders
05/21/24 Breakfast
Regular
At Your Request: Full Participation
05/21/24 15:40
EKG [Electrocardiogram (*1)] Urgent
Reason for Study: Bradycardia / Tachycardia
05/21/24 15:41
EKG- Treatment ONCE
05/21/24 15:44
Complete Blood Count/With Diff Urgent
NT-proBNP Urgent
05/21/24 15:53
Adenosine [Adenocard] 12 mg IV NOW STA
05/21/24 15:54
EKG [Electrocardiogram (*1)] Urgent
Reason for Study: Other
Other Reason for Exam: converting after adenosine administration
05/21/24 15:55
EKG- Treatment ONCE
05/21/24 15:57
CR Chest Portable - 1 View Urgent
Comment:
Reason For Exam: sob
Reason Study Needs to be Portable: Patient Unstable
05/21/24 15:58
Adenosine [Adenocard] 12 mg IV NOW STA
05/21/24 16:15
Comprehensive Metabolic Panel Routine
Magnesium Routine
05/21/24 16:36
Furosemide [Lasix] 20 mg IV NOW STA
05/21/24 19:53
Admit/Transfer Patient As Directed
Co-Sign Provider:
Level of Care: Inpatient admission
Assign to:: Telemetry
Physician / Group: Bradley
Diagnosis: SVT, CHF
Reason for Telemetry: Acute Heart Failure
Date to Stop Telemetry: 05/24/24
Time to Stop Telemetry: 11:00
Reason for Hospitalization: SVT, CHF
Expected length of stay greater than two midnights?: Yes
ELOS- Estimated Length of Stay in days: 3
I certify the patient meets the requirements for IP care: Yes
05/21/24 19:55
Code Status As Directed
Resuscitation Status: Do not resuscitate
Reached after discussion with pt or family/Healthcare POA: Yes
DNR Bracelet Application ONCE
05/21/24 20:50
Acetaminophen [Tylenol] 650 mg PO Q4HPRN PRN
05/21/24 20:50
Activity As Directed
Activity Level: Ambulate
With Assistance
EKG with chest pain [ECG as needed] As Directed
ECG as needed for:: Chest Pain
I/O [Intake/ Output] As Directed
Frequency: Per unit guidelines
Vital Signs As Directed
Frequency: Per unit guidelines
Weight As Directed
Frequency: Daily
Oxygen Therapy [O2 Therapy] [RESP] Routine
Titrate/Wean O2 to maintain O2 sat greater than (%): 94
Ot Eval And Treat Routine
PT Consult [Pt Eval And Treat] Routine
Activity Level: Ambulate
With Assistance
05/21/24 21:00
Apixaban [Eliquis] 2.5 mg PO BID
05/21/24 21:36
TSH Reflex To Free T4 Routine
Troponin I Q6H
05/22/24 03:50
Basic Metabolic Panel IN AM
Cardiovascular Evaluation IN AM
Complete Blood Count/No Diff IN AM
Magnesium IN AM
Troponin I Q6H
05/22/24 06:00
EKG [Electrocardiogram (*1)] IN AM
Reason for Study: Chest Pain
05/22/24 08:00
Dapagliflozin [Farxiga] 10 mg PO DAILY
Furosemide [Lasix] 20 mg IV BID AT 0800,1600
Sotalol [Betapace] 80 mg PO DAILY
05/24/24 11:00
DC Protocol for Telemetry ONCE
Abnormal Lab Results
05/21/24 05/21/24
15:44 16:15
RBC 3.54 L 10^6/uL
(4.20-5.40)
Hgb 11.2 L g/dL
(12.0-16.0)
Hct 35.3 L %
(37.0-47.0)
MCV 99.7 H fL
(81.0-99.0)
MCH 31.6 H pg
(27.0-31.0)
MCHC 31.7 L g/dL
(33.0-37.0)
RDW 14.8 H %
(11.5-14.5)
Absolute Lymphs (auto) 0.9 L 10^3/uL
(1.2-3.4)
Absolute Monos (auto) 0.8 H 10^3/uL
(0.1-0.6)
Lymphocytes % 17.5 L %
(20.5-51.1)
Monocytes % 15.7 H %
(1.7-9.3)
Sodium 134 L mmol/L
(135-145)
BUN 26 H mg/dl
(7-17)
Glucose 105 H mg/dl
(70-99)
AST 40 H U/L
(14-36)
05/21/24 15:44
05/21/24 16:15
Vital Signs
Initial and Last Documented VS:
Initial Vital Signs
Pulse Ox
90
05/21/24 15:40
Last Documented Vital Signs
Temp Pulse Resp BP Pulse Ox
98.0 F 80 18 108/65 95
05/22/24 14:55 05/22/24 14:00 05/22/24 14:55 05/22/24 13:54 05/22/24 14:55
MDM/Problems Addressed
MDM/Problems Addressed:
Patient evaluated immediately upon arrival, secondary to increased work of breathing along with tachycardia. Initial EKG concerning for SVT versus rapid A-fib/flutter. Patient given adenosine 6 mg and route by paramedics without improvement. In
ED, patient given adenosine 12 mg with resolution of tachycardia. Repeat EKG reveals NSR. Unfortunately, patient's symptoms, blood work, and x-rays are concerning for mild pulm edema, likely secondary to tachycardia. Patient given Lasix 20 mg IV
with diuresis. Patient reports mild improvement symptoms, but continued to require supplemental oxygen. As such, patient will be admitted for further evaluation treatment, including further diuresis.
*EKG
Interpreted by ED Provider?: Yes
EKG Intrepretation Date: 05/21/24
Heart Rate: 166
Rate: tachycardiac
Rhythm: sinus
[place]: normal axis
Interval: normal interval
*Critical Care Note
Total Time (30-74mins, 75-104mins- exclusive of procedures): 30 min
ED Attending Note
-
Portions of this chart may have been created with voice recognition software.� Occasional wrong word or��sound alike� substitutions may have occurred due to the inherent limitations of voice recognition software.
Discharge Plan
Departure
Patient Disposition: Admit
Date of Disposition: 05/21/24
Time of Disposition: 18:55
Admit to: Telemetry
Presentation/result/management discussed w/ accepting MD/DO: Hospitalist
Discharge Problem:
SVT (supraventricular tachycardia), Hypoxia, Pulmonary edema
Interventions
Interventions:
*Risk Screen - Suicide Last Done: 05/21/24 15:43
*General Assessment Last Done: 05/21/24 15:43
*Neglect/Abuse Screening Last Done: 05/21/24 15:43
ED- Fall Risk Assessment Last Done: 05/21/24 15:43
*ED COVID-19 Vaccine History Last Done: 05/21/24 15:43
*Nursing Disposition Last Done: 05/21/24 21:00
ED- Cardiac Assessment Last Done: 05/21/24 15:43
ED- Pulmonary Assessment Last Done: 05/21/24 15:43
Discharge Date and Time
Discharge Date/Time: 05/21/24 21:00
[2024-05-21 16:12] LABS: % Basophils 0.8 % (0-2); % Eosinophils 1.5 % (0-6); % Immature Granulocytes 0.4 % (0-0.5); % Lymphocytes 17.5 % (20.5-51.1); % Monocytes 15.7 % (1.7-9.3); % Neutrophils 64.1 % (42.2-75.2); Absolute Eosinophils 0.1 10^3/uL (0-0.7); Absolute Lymphocytes 0.9 10^3/uL (1.2-3.4); Absolute Monocytes 0.8 10^3/uL (0.1-0.6); Absolute Neutrophils 3.4 10^3/uL (1.4-6.5); Hematocrit 35.3 % (37.0-47.0); Hemoglobin 11.2 g/dL (12.0-16.0); Mean Corp Hgb Conc. 31.7 g/dL (33.0-37.0); Mean Corpuscular Hgb 31.6 pg (27.0-31.0); Mean Corpuscular Volume 99.7 fL (81.0-99.0); Mean Platelet Volume 9.5 fL (7.4-10.4); Nucleated Red Blood Cells % 0 %; Platelet Count 196 10^3/uL (130-400); Red Blood Cell Count 3.54 10^6/uL (4.20-5.40); Red Cell Dist. Width 14.8 % (11.5-14.5); White Blood Cell Count 5.3 10^3/uL (4.8-10.8)
[2024-05-21 16:26] LABS: NT-proBNP 6450 pg/ml
--- NOTE | 2024-05-21 16:33 | EDRN ---
Dr. Bee currently at the pts bedside
[2024-05-21 16:43] LABS: ALT (SGPT) 19 U/L (0-35); AST (SGOT) 40 U/L (14-36); Albumin 3.6 g/dl (3.5-5.0); Alkaline Phosphatase 99 U/L (38-126); Blood Urea Nitrogen 26 mg/dl (7-17); Carbon Dioxide 28 mmol/L (22-30); Chloride 99 mmol/L (98-107); Estimated Creatinine Clearance 38 ml/min; Glucose 105 mg/dl (70-99); Magnesium 2.1 mg/dl (1.6-2.3); Potassium 4.5 mmol/L (3.5-5.1); Sodium 134 mmol/L (135-145); Total Bilirubin 0.7 mg/dl (0.2-1.3); Total Protein 6.6 g/dl (6.3-8.2); eGFR > 60.00
[2024-05-21] MEDS: LASIX 20 MG IV (17:06)
--- NOTE | 2024-05-21 17:08 | EDRN ---
per Dr. Bee the pts 02 was titrated from 4L NC to 2L NC Sp02 remains at 96%
--- NOTE | 2024-05-21 18:21 | EDRN ---
02 was titrated from 2L to RA per Dr. Bee
--- NOTE | 2024-05-21 18:40 | EDRN ---
the pt is currently 89% on RA, Dr. Bee notified, Dr. Bee currently at the pts bedside
--- NOTE | 2024-05-21 18:44 | EDRN ---
the pt was placed back on 2L NC per Dr. madrid and sp02 came back tup to 92%
--- NOTE | 2024-05-21 20:01 | HPS.HSE ---
Family Physician
-
Family Physician: Toy Ochoa MD
Chief Complaint
-
Palpitations, SOB
History of Present Illness
Patient is an 83y F with PMH significant for A-Fib and CHF who presents to ED complaining of palpitations and SOB. Patient states that she noted racing / pounding heartbeats yesterday afternoon. These symptoms waxed and waned to an extent over
the past 24 hours. She was seen by her PCP today and noted to have rapid heartbeat and was sent to the ED for further evaluation. Patient recived 6mg adenosine by EMS with no improvement in her tachyarrhythmia. She received an additional 12mg
here in the ED with termination of SVT and baptism of sinus rhythm.
At present patient complains of continued shortness of breath and sense of chest 'tightness'.
She reports some history of milder / similar symptoms in the past due to A-Fib.
She denies any recent med changes, recent illness, etc.
Medical History
Past Medical History
Past Medical History: Reports Other
Additional Past Medical History:
Paroxysmal Atrial Fibrillation
Chronic HFpEF
Cognitive Impairment
Breast CA s/p Left Mastectomy
Past Surgical History: Reports Other
Additional Past Surgical History:
Left Mastectomy with Lymph Node Dissection
Cataracts
Social History
Tobacco: Former Smoker
Alcohol: Occasional
Personal:
Living: With Family
Family History
Family History: Not pertinent
Allergies / Home Medications
Allergies reflects when Allergies were last updated in [facility].
Home Medications with original date entered in [facility]
Allergy/Medication List:
Allergies
Allergy/AdvReac Type Severity Reaction Status Date / Time
amoxicillin [Amoxicillin] Allergy Unknown Verified 10/02/23 22:52
clarithromycin Allergy stomach Verified 10/03/23 16:00
upset
sulfamethoxazole Allergy Unknown Verified 10/03/23 16:00
trimethoprim Allergy Unknown Verified 10/03/23 16:00
Home Medications
sotalol 80 mg tablet 80 mg PO DAILY Arrhythmia 03/08/19
apixaban 5 mg tablet (Eliquis) 2.5 mg PO BID 05/21/24
dapagliflozin propanediol 10 mg tablet (Farxiga) 10 mg PO DAILY 05/21/24
estradiol 0.01% (0.1 mg/gram) vaginal cream 1 g vaginal Q2W 05/21/24
furosemide 20 mg tablet 20 mg PO DAILY 05/21/24
vibegron 75 mg tablet (Gemtesa) 75 mg PO DAILY 05/21/24
Review of Systems
-
History Source: Patient
A 12 point ROS was completed and negative except as noted: Yes
Constitutional: Denies Fever or Chills
Respiratory: Reports Trouble Breathing; Denies Cough
Cardiac: Reports Chest Pain and Palpitations
Abdomen/GI: Denies Abdominal Pain, Nausea, Vomiting or Diarrhea
: Denies Dysuria, Frequency or Flank Pain
Musculoskeletal: Denies Joint Pain or Edema
Neurological: Reports Dizzy; Denies Headache
Physical Exam
Vital Signs
Vital Signs
Temp Pulse Resp BP Pulse Ox
97.6 F 85 16 114/66 96
05/21/24 15:43 05/21/24 18:20 05/21/24 18:20 05/21/24 18:20 05/21/24 18:20
Physical Exam
General: Other (83y F in mild distress due to dyspnea.)
HEENT: Moist mucous membranes and PERRLA
Respiratory: Other (Diffuse rales throughout.)
Cardiac: S1/S2, Regular Rhythm and Murmur (II/ DOMINIC)
GI: Soft, Non Tender, Non Distended and Normal Bowel Sounds
Musculoskeletal: No Clubbing, No Cyanosis and No Edema (1+ edema at ankles bilaterally.)
Neuro: AO x 3
Laboratory Results
-
05/21/24 15:44
05/21/24 16:15
Laboratory Results
Total Bilirubin 0.7 mg/dl (0.2-1.3) 05/21/24 16:15
AST 40 U/L (14-36) H 05/21/24 16:15
ALT 19 U/L (0-35) 05/21/24 16:15
Alkaline Phosphatase 99 U/L (38-126) 05/21/24 16:15
Impression/Plan
-
A/P: Patient is an 83y F with PMH significant for A-Fib and CHF who presents to ED for evaluation of palpitations and SOB.
SVT
- Admit for further evaluation and treatment.
- Regular SVT in the 160s on arrival. Terminated after 12mg adenosine in the ED.
- Now maintaining NSR.
- Monitor on tele for any recurrence.
- Check MG, TFTs, etc.
- Check Echo.
- Cardiology evaluation.
Acute on Chronic HFpEF
- Suspect decompensation primarily due to tachyarrhythmia.
- IV Lasix BID for now.
- Echo as noted above.
- Follow weights, I/Os, etc.
Paroxysmal Atrial Fibrillation
- Not in A-Fib at present.
- Continue sotalol and Eliquis.
DVT Prophylaxis: On Eliquis
Code Status: DNR
[2024-05-21 22:10] LABS: Troponin I 0.039 ng/ml
[2024-05-21] MEDS: ELIQUIS 2.5 MG PO (22:20)
[2024-05-21 22:28] LABS: TSH Reflex To Free T4 2.33 uIU/ml (0.47-4.68)
[2024-05-22] VITALS (14 sets, daily range): BP systolic 79–131; BP diastolic 50–82; PULSE 71–74; O2SAT 92–96; BMI 17.3
--- NOTE | 2024-05-22 00:18 | PTCARENOTE ---
Pt admitted into 2247- pulled over to the bed x3. Plan of care discussed- purwick replaced. and maurisio care provided. Pt on 2L NC spo2- 93-95%, she does not wear o2 @ home. Bed alarm in place for safety. admission and assessment completed as
documented. SR w/ BBB on the monitor.
--- NOTE | 2024-05-22 02:00 | PTCARENOTE ---
WILVER bustamante aware of Pts elevated trop level and 15 beat run of asymptomatic SVT that self terminated. pt sleeping without complaints.
[2024-05-22 04:17] LABS: Hematocrit 33.8 % (37.0-47.0); Hemoglobin 11.1 g/dL (12.0-16.0); Mean Corp Hgb Conc. 32.8 g/dL (33.0-37.0); Mean Corpuscular Hgb 32.8 pg (27.0-31.0); Mean Platelet Volume 9.3 fL (7.4-10.4); Platelet Count 196 10^3/uL (130-400); Red Blood Cell Count 3.38 10^6/uL (4.20-5.40); Red Cell Dist. Width 14.8 % (11.5-14.5); White Blood Cell Count 5.5 10^3/uL (4.8-10.8)
[2024-05-22 04:46] LABS: Troponin I 0.041 ng/ml
[2024-05-22 05:08] LABS: Blood Urea Nitrogen 25 mg/dl (7-17); Carbon Dioxide 29 mmol/L (22-30); Chloride 99 mmol/L (98-107); Estimated Creatinine Clearance 34 ml/min; Glucose 84 mg/dl (70-99); HDL Cholesterol 98 mg/dl; LDL Cholesterol, Calculated 45 mg/dl; Magnesium 2.2 mg/dl (1.6-2.3); Sodium 136 mmol/L (135-145); Total Cholesterol 158 mg/dl (50-199); Triglyceride 77 mg/dl (10-149); Very Low Density Lipoprotein 15 mg/dl (0-30); eGFR > 60.00
--- NOTE | 2024-05-22 08:12 | W.PN.HOSP.TC ---
Addendum entered and electronically signed by Gustavo Schultz MD 05/22/24 14:37:
SVT back in sinus continue sotalol, monitor on telemetry, follow-up with cardiology
Acute hypoxemic respiratory failure lowest recorded SpO2 90% secondary to heart failure exacerbation with a proBNP of 6450, repeat 2D echocardiogram IV Lasix, Farxiga monitor I's and O's follow renal function wean O2
Nonischemic myocardial injury as troponins have peaked no further trend
Paroxysmal atrial fibrillation currently normal sinus rhythm continue sotalol anticoagulated with Eliquis
Original Note:
Today's Communication/Plan
-
;/
Assessment / Plan
Assessment / Plan
Assessment/Plan
#Supraventricular tachycardia
-History of svt
-Now in NSR
-Magnesium, thyroid level normal
-Echocardiogram 05/22 LVEF 60-65%.Right ventricle is mildly dilated with reduced systolic function.Severe biatrial enlargement.
-Cardiology following
-Sotalol 80 mg changed to twice daily to prevent recurrence
-Monitor on telemetry
#Acute Hypoxic respiratory insufficiency secondary to below
#Acute on chronic HFpEF
-proBNP on presentation 6450
-Echocardiogram as above
-Continue diuresis with IV Lasix 20 mg twice daily
-Continued dapagliflozin 10 mg daily
-Monitor I's and O's, daily weights
-Monitor creatinine with diuresis
-Wean O2 as tolerated.
#Nonischemic myocardial injury
-Trops elevated on presentation, now peaked
-Can stop trending
#Paroxysmal atrial fibrillation
-Currently normal sinus rhythm
-Continue sotalol
-Anticoagulation with Eliquis
#h/o Breast CA s/p Left Mastectomy
CODE STATUS DNR
DVT prophylaxis Eliquis
Contacted @ 14;16 to give updates. No response. Left VM
Anticipated Discharge: > 48 hours
Subjective/Interval History
-
Patient seen and examined at bedside. Denies chest pain. Admits shortness of breath and lower back pain, although states back pain is chronic and improves with Tylenol use.
Objective Data
-
Labs:
Laboratory Results
05/22/24
03:50
WBC 5.5
Hgb 11.1 L
Hct 33.8 L
Plt Count 196
Sodium 136
Potassium 4.0
Chloride 99
Carbon Dioxide 29
BUN 25 H
Creatinine 0.9
Glucose 84
Calcium 9.0
Vital Signs:
Vital Signs
Temp Pulse Resp BP Pulse Ox
97.8 F 87 16 131/67 97
05/22/24 07:26 05/22/24 07:28 05/22/24 07:26 05/22/24 07:28 05/22/24 07:26
I&O
05/21/24 05/22/24 05/23/24
06:59 06:59 06:59
Output Total 1550 / 1550
Balance -1550 / -1550
Review of Systems
-
All other systems: Reviewed and negative (Except as documented)
Physical Exam
-
General: Respiratory Distress
Respiratory: Rales and Crackles (Bilateral)
Cardiac: Regular Rhythm, S1/S2 and Tachycardic
GI: Soft, Nontender and Nondistended
Musculoskeletal: Edema, Right Lower Extrem, Edema, Left Lower Extrem and Other (No tenderness to palpation on lower back)
Neuro: Awake, Alert, Oriented and AO x 3
Psych: Calm
[2024-05-22] MEDS: ELIQUIS 2.5 MG PO ×2 (08:50→20:27)
[2024-05-22] MEDS: TYLENOL 650 MG PO (08:50)
[2024-05-22] MEDS: LASIX 20 MG IV ×2 (08:50→17:32)
[2024-05-22] MEDS: BETAPACE 80 MG PO (08:50)
[2024-05-22] MEDS: FARXIGA 10 MG PO (08:50)
--- NOTE | 2024-05-22 08:59 | CON.CAR ---
Addendum entered and electronically signed by Corey Marx MD 05/22/24 12:50:
Reviewed case with pharmacy. Given renal function, will keep sotalol at 80 mg daily.
Addendum entered and electronically signed by Corey Marx MD 05/22/24 09:12:
Troponin elevation due to nonischemic myocardial injury
-No chest pain or ischemic ECG changes
-Likely due to HFpEF exacerbation and rapid SVT
-Okay to stop trending troponin
Original Note:
Consultation
Consultation Request
Date/Time Consultation Requested: 05/21/24 @ 22:19
Date/Time Consultation Performed: 05/22/24 @ 8:45
Requesting Provider: Rusty Huerta DO
Performing Provider: Corey Marx MD
Reason for Consultation: HFpEF
Medical History
-
Chief Complaint: sob/rapid heart rate
History of Present Illness:
Madhuri Mccloud is an 83 yo female with paroxysmal Afib on Eliquis and Sotalol, HFpEF, HLD, SVT and h/o left breast cancer, who presents to the ER with c/o rapid heart rate that occurred yesterday, seen by PCP and sent to the ER for evaluation.
In the ER, she was noted to be in a supraventricular tachycardia with heart rate up to 160s. This broke with 12 mg IV adenosine and she returned to normal sinus rhythm. ECG after adenosine showed normal sinus rhythm with PACs and no evidence of
ischemia. Labs notable for K 4.0, mag 2.2, cr 0.9, troponin 0.039 -> 0.041, proBNP 6450. CXR showed pulmonary edema with stable bilateral pleural effusions. She was given 20 mg IV Lasix. Of note, her weight on admission was 44.3 kg which is the
lowest on record here. Today she reports that her breathing still feels labored. She denies chest pain or recurrence of palpitations. Review of telemetry shows several short episodes of SVT.
Past Medical History
Past Medical History: Arrhythmias (paroxysmal afib, svt), Cancer (breast), CHF (HFpEF) and Hypercholesterolemia
Past Surgical History: Other (left mastectomy)
Social History
Tobacco: Non-Smoker
Alcohol: None
Personal:
Living: With Family
Family History
Family History: Reviewed & Not Pertinent
Allergies / Home Medications
Allergy/AdvReac Type Severity Reaction Status Date / Time
amoxicillin [Amoxicillin] Allergy Unknown Verified 10/02/23 22:52
clarithromycin Allergy stomach Verified 10/03/23 16:00
upset
sulfamethoxazole Allergy Unknown Verified 10/03/23 16:00
trimethoprim Allergy Unknown Verified 10/03/23 16:00
�Medication �Instructions �Recorded �Confirmed �Type
sotalol 80 mg tablet 80 mg PO DAILY Arrhythmia 03/08/19 05/21/24 History
apixaban 5 mg tablet (Eliquis) 2.5 mg PO BID 05/21/24 05/21/24 History
dapagliflozin propanediol 10 mg 10 mg PO DAILY 05/21/24 05/21/24 History
tablet (Farxiga)
estradiol 0.01% (0.1 mg/gram) 1 g vaginal Q2W 05/21/24 05/21/24 History
vaginal cream
furosemide 20 mg tablet 20 mg PO DAILY 05/21/24 05/21/24 History
vibegron 75 mg tablet (Gemtesa) 75 mg PO DAILY 05/21/24 05/21/24 History
Review of Systems
-
All other systems: Negative unless noted
Physical Exam
Vital Signs
Temp Pulse Resp BP Pulse Ox
97.8 F 90 16 131/67 97
05/22/24 07:26 05/22/24 08:50 05/22/24 07:26 05/22/24 08:50 05/22/24 07:26
Lab Results
05/22/24 03:50
05/22/24 03:50
Troponin I 0.041 ng/ml H* 05/22/24 03:50
[id number] Pept 6450 pg/ml 05/21/24 15:44
Physical Exam
General: Other (Frail elderly female)
Respiratory: Crackles and Non Labored Respirations
Cardiac: S1/S2, Regular Rhythm, Murmur (3/6 systolic murmur) and Peripheral Edema
Impression / Plan
-
Madhuri Mccloud is an 83 yo female with paroxysmal Afib on Eliquis and Sotalol, HFpEF, HLD, SVT and h/o left breast cancer, who presents to the ER with c/o rapid heart rate, seen by PCP and sent to the ER for evaluation found to have SVT which broke
in the ER with adenosine. Cardiology is consulted for SVT and HFpEF exacerbation.
Riveting Machine Operator Automatic: Dr. Palm
Supraventricular tachycardia
-Broke in the ER with 12 mg IV adenosine. Now in sinus rhythm.
-Increase sotalol to 80 mg twice daily to try to prevent recurrence as this is her second hospitalization for SVT
Acute on chronic HFpEF
-Elevated NT proBNP on admission with pulmonary edema on chest x-ray. Weight is lowest that it has ever been so we will need to reestablish a dry weight.
-Echo July 2022: Normal BiV function, aortic sclerosis
-Continue Lasix 20 mg IV twice daily (home dose 20 mg p.o. daily)
-Continue dapagliflozin 10 mg daily
-Follow-up repeat echocardiogram
Paroxysmal atrial fibrillation
-Increase sotalol as above
-Continue reduced dose Eliquis (age, weight)
Data Reviewed
-
EKG: Tracing Personally Visualized and interpreted and Discussed with Physician
Radiology: Image Personally Visualized and interpreted
Medical Tests (Nuc Med, Echo etc): Report Reviewed by me
Labs: Labs Reviewed by me and Discussed with Physician
Old Records: Reviewed
--- NOTE | 2024-05-22 10:40 | CM ---
Reviewed chart. Met with Mrs. Mccloud to review discharge plans. She states prior to admission she resides with her spouse and son in a one story steps to enter. She states prior to admission she ambulates with a rolling walker. She states she has
a rolling walker and shower chair at home. She states she thinks she has has VNA services in the past. She has been in [facility] in the past for SNF/Rehab. Will need to see her current functional level to see if she will have any skilled care
needs. If she needs SNF/Rehab. she will need pre-cert. Medial work-up in progress. The discharge plan is to return home with her spouse and son with VNA Services versus SNF/Rehab. if indicated and approved by insurance when medically stable.
--- NOTE | 2024-05-22 21:54 | PTCARENOTE ---
Received patient at change of shift. Patient sitting in chair, eating dinner, in room. BP 116/67, NSR w/ first degree and BBB 80s, 98% on 2L. No c/o of palpitations or SOB. Discussed plan of care for evening. Patient verbalized
understanding. Call villafana within reach.
[2024-05-23] VITALS (7 sets, daily range): BP systolic 105–121; BP diastolic 62–81; BMI 17.5
[2024-05-23 04:26] LABS: % Basophils 0.5 % (0-2); % Eosinophils 1.7 % (0-6); % Immature Granulocytes 0.3 % (0-0.5); % Lymphocytes 16.1 % (20.5-51.1); % Monocytes 15.6 % (1.7-9.3); % Neutrophils 65.8 % (42.2-75.2); Absolute Eosinophils 0.1 10^3/uL (0-0.7); Absolute Monocytes 0.9 10^3/uL (0.1-0.6); Absolute Neutrophils 3.9 10^3/uL (1.4-6.5); Hematocrit 34.1 % (37.0-47.0); Mean Corp Hgb Conc. 32.3 g/dL (33.0-37.0); Mean Corpuscular Hgb 32.4 pg (27.0-31.0); Mean Corpuscular Volume 100.6 fL (81.0-99.0); Mean Platelet Volume 9.1 fL (7.4-10.4); Nucleated Red Blood Cells % 0 %; Platelet Count 187 10^3/uL (130-400); Red Blood Cell Count 3.39 10^6/uL (4.20-5.40); Red Cell Dist. Width 14.9 % (11.5-14.5); White Blood Cell Count 5.9 10^3/uL (4.8-10.8)
[2024-05-23 04:42] LABS: Blood Urea Nitrogen 24 mg/dl (7-17); Calcium 8.2 mg/dl (8.4-10.2); Carbon Dioxide 34 mmol/L (22-30); Chloride 98 mmol/L (98-107); Estimated Creatinine Clearance 38 ml/min; Glucose 82 mg/dl (70-99); Magnesium 2.1 mg/dl (1.6-2.3); Potassium 3.5 mmol/L (3.5-5.1); Sodium 136 mmol/L (135-145); eGFR > 60.00
--- NOTE | 2024-05-23 07:54 | W.PN.HOSP.TC ---
Addendum entered and electronically signed by Gustavo Schultz MD 05/23/24 15:52:
SVT�acute event
-At bedside was noted to have SVT of 177 complained of dizziness no chest pain or shortness of breath reported that
-EKG obtained confirmed SVT blood pressure stable
-Performed multiple different vagal maneuvers in the including bearing down, blowing into a 3 cc syringe
-Eventually she broke with blowing into a 3 cc syringe
Cardiology updated, increase sotalol, EKG, monitor on telemetry
Acute on chronic HFpEF exacerbation
-Continue IV diuresis monitor daily upright weights, monitor urinary output keep K greater than 4 magnesium greater than 2
Original Note:
Today's Communication/Plan
-
;/
Assessment / Plan
Assessment / Plan
Assessment/Plan
#Supraventricular tachycardia
-History of svt
-Went into SVT this morning. Maneuvers started. Converted to normal sinus rhythm
-Continue to monitor on telemetry
-Echocardiogram 05/22 LVEF 60-65%.Right ventricle is mildly dilated with reduced systolic function.Severe biatrial enlargement.
-Cardiology following
-Sotalol 80 mg twice daily
#Acute Hypoxic respiratory insufficiency secondary to below
#Acute on chronic HFpEF
-proBNP on presentation 6450
-Echocardiogram as above
-Continue diuresis with IV Lasix 20 mg twice daily
-Continued dapagliflozin 10 mg daily
-Monitor I's and O's, daily weights
-Monitor creatinine with diuresis
-Wean O2 as tolerated., Still on 2 L
#Nonischemic myocardial injury
-Trops elevated on presentation, now peaked
-Can stop trending
#Paroxysmal atrial fibrillation
-Currently normal sinus rhythm
-Continue sotalol
-Anticoagulation with Eliquis
#h/o Breast CA s/p Left Mastectomy
CODE STATUS DNR
DVT prophylaxis Eliquis
Anticipated Discharge: 24 - 48 hours
Subjective/Interval History
-
Patient seen and examined at bedside. Patient was currently in SVT on tele monitoring. Maneuvers started. EKG ordered. Converted to normal sinus rhythm. She denied chest pain during the episode.
Objective Data
-
Labs:
Laboratory Results
05/23/24
03:51
WBC 5.9
Hgb 11.0 L
Hct 34.1 L
Plt Count 187
Sodium 136
Potassium 3.5
Chloride 98
Carbon Dioxide 34 H
BUN 24 H
Creatinine 0.8
Glucose 82
Calcium 8.2 L
Vital Signs:
Vital Signs
Temp Pulse Resp BP Pulse Ox
97.4 F 78 20 114/71 97
05/23/24 07:31 05/23/24 04:00 05/23/24 07:31 05/23/24 03:56 05/23/24 07:31
I&O
05/22/24 05/23/24 05/24/24
06:59 06:59 06:59
Output Total 1550 / 1550 1250 / 1250
Balance -1550 / -1550 -1250 / -1250
Review of Systems
-
All other systems: Reviewed and negative (Except as documented)
Physical Exam
-
Respiratory: Rales and Crackles (Bilateral)
Cardiac: Regular Rhythm, S1/S2 and Tachycardic
GI: Soft, Nontender and Nondistended
Musculoskeletal: Edema, Right Lower Extrem and Edema, Left Lower Extrem
Neuro: Awake, Alert, Oriented and AO x 3
Psych: Calm
[2024-05-23] MEDS: FARXIGA 10 MG PO (08:56)
[2024-05-23] MEDS: BETAPACE 80 MG PO (08:57)
[2024-05-23] MEDS: ELIQUIS 2.5 MG PO ×2 (08:57→20:43)
[2024-05-23] MEDS: LASIX 20 MG IV ×2 (09:01→16:19)
--- NOTE | 2024-05-23 09:57 | CM ---
Addendum entered by Ashley Salomon 05/23/24 14:03:
Met with and Mrs. Mccloud to review discharge plans. Reviewed teams recommendations for SNF/Rehab. Received telephone call from [facility] they can offer a bed if bed available and approved by insurance.
Original Note:
Reviewed chart. Met with Mrs. Mccloud to review discharge plans. We reviewed the teams recommendation for SNF/Rehab. She states she would prefer ro go home. She was willing to have referral sent to [facility] and [facility].
Telephone call to [facility] and [facility] to make the referral. Referral sent. Will need pre-cert with her insurance. Will have to get to be agree to SNF. Awaiting decsions from SNF's regarding bed availability. Medical
work-up in progress. The discharge plan is to go to SNF/Rehab. if bed available, [place] agreeable and approved by insurance when medically stable.
--- NOTE | 2024-05-23 10:37 | PTCARENOTE ---
Pt walked to BR this am, while in BR went into SVT 170-180's, Dr Schultz, right outside door, came in to see Pt. He used a maneuver where Pt blew into 3 ml syringe, Pt then broke in to SR 80's. While in SVT, Pt felt dizzy and SOB.
--- NOTE | 2024-05-23 14:06 | W.PN.CD ---
Today's Communication / Plan
-
- Increased dose of Sotalol
- EKG with higher dose of Sotalol
- Plan for EPS and ablation as outpatient.
Impression / Plan
-
Madhuri Mccloud is an 83 yo female with paroxysmal Afib on Eliquis and Sotalol, HFpEF, HLD, SVT and h/o left breast cancer, who presents to the ER with c/o rapid heart rate, seen by PCP and sent to the ER for evaluation found to have SVT which broke
in the ER with adenosine. Cardiology is consulted for SVT and HFpEF exacerbation.
Winery Worker: Dr. Palm
Supraventricular tachycardia
-Broke in the ER with 12 mg IV adenosine. Now in sinus rhythm.
-Another episode of SVT this AM - short lived and broke to sinus spontaneously.
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 The p waves are difficult to assess during the tachycardia that cannot ascertain if it is long RP or short RP tachycardia.
-Best option would be to do the EP study and ablate as needed.
-She is already on Sotalol - Increased dose of sotalol to 80 mg twice daily. This is her second hospitalization for SVT
- AT from PV is more likely given her age, hx of AF and biatrial enlargement on ECHO.
- Ablation of the AT or AVNRT vs PVI can be attempted.
Acute on chronic HFpEF
-Elevated NT proBNP on admission with pulmonary edema on chest x-ray. Weight is lowest that it has ever been so we will need to reestablish a dry weight.
-Echo July 2022: Normal BiV function, aortic sclerosis
-Continue Lasix 20 mg IV twice daily (home dose 20 mg p.o. daily)
-Continue dapagliflozin 10 mg daily
-Repeat echocardiogram 05/22/24: LVEF 65% and severe biatrial enlargement. RV more dilated and PASP in 40s mmHg now.
Paroxysmal atrial fibrillation
-Increased sotalol as above
-Continue reduced dose Eliquis (age, weight)
Physical Exam
Vital Signs/Labs
Vital Signs
Temp Pulse Resp BP Pulse Ox
97.7 F 78 20 114/71 95
05/23/24 11:12 05/23/24 04:00 05/23/24 11:12 05/23/24 03:56 05/23/24 11:12
05/22/24 05/23/24 05/24/24
06:59 06:59 06:59
Actual Weight 44.3 kg 44.9 kg
05/23/24 03:51
05/23/24 03:51
Magnesium 2.1 mg/dl (1.6-2.3) 05/23/24 03:51
Triglycerides 77 mg/dl (10-149) 05/22/24 03:50
LDL Cholesterol, Calc 45 mg/dl 05/22/24 03:50
VLDL Cholesterol, Calc 15 mg/dl (0-30) 05/22/24 03:50
HDL Cholesterol 98 mg/dl 05/22/24 03:50
05/21/24
15:44
Aqx-Z-Pwesplnevfi Pept 6450
LAB Results
05/21/24 05/22/24 05/22/24
21:36 03:50 08:50
Troponin I 0.039 H* 0.041 H* Cancelled
Physical Exam
Constitutional: No acute distress and Comfortable
EENT: Anicteric and Moist mucous membranes
Cardiovascular: Rhythm & rate is regular, Pedal edema is absent, JVD pressure is normal and Systolic murmur absent
Respiratory: Respiratory effort normal, Lungs clear to auscul. and Rhonchi Absent
GI: Soft, Distention absent, Normal bowel sounds and Distention present
Neuro/Psych: Alert, Oriented, AO x 3 and Motor deficits absent
Other: Skin
Data Reviewed
-
Date of Service: May 23, 2024
Medical Decision Making: Reviewed Test Results, Independent Historian Assessment, Test Interpretation and Review of Case with other Provider
EKG: Tracing Personally Visualized and interpreted (SVT (178bpm) noted this AM. terminated to sinus spontaneously before adenosine can be given. )
Echo: Report Reviewed by me
X-Ray/CT/US/MRI/NUC/PET: Image Personally Visualized and interpreted
Medical Tests (PFT, Pathology etc): Discussed with Physician, Discussed with Nurse, Discussed with Patient and Discussed with Family
Labs: Labs Reviewed by me
Old Records: Reviewed
Critical Care Time (in minutes): 35
--- NOTE | 2024-05-23 17:00 | PN.CDI ---
CDI
- -
CDI:
Physician Documentation Request
Admit Date: 05/21/24 20:08
Dear Doctor Antoine/Resident,
Please review the following and provide your response in the progress notes.
Clinical Indicators:
Height: 5 ft 3 in
Weight:98 lb 15.8 oz
BMI:17.3
Other Clinical Notes: Nutrition consult 05/22, ' BMI assessment underweight... she thinks she may have lost some weight. History shows 10/03/23 she weighed 110 lbs. Today she weighs 97 lbs. This is a 11.9% BW loss over 7 months (significant)....'
If possible, please provide an associated diagnosis related to the abnormal BMI, such as:
BMI < or = to 19
Underweight
Cachectic
- Other ( please specify)
Use of terms such as suspected, likely, concern for, or probable (associated with a specific diagnosis that is being evaluated, monitored, or treated as if it exists) are acceptable and can be coded in the inpatient setting, when documented at the
time of discharge.
Thank you,
Natalia Aguilar RN
CDI Specialist
[place] [facility]
Please use your independent medical judgment in providing your response.
--- NOTE | 2024-05-23 22:29 | PTCARENOTE ---
Pt rec'd at change of shift sitting in recliner chair. Placed back to bed at 8pm 1 person assist. Sinus on telemetry. resting quietly with call villafana within reach.
[2024-05-24] VITALS (15 sets, daily range): BP systolic 77–125; BP diastolic 51–77; PULSE 70–73; BMI 16.4
--- NOTE | 2024-05-24 03:01 | PTCARENOTE ---
At 0234 pt went into svt rates 170's c/o lightheadedness after returning from bathroom to void. b/p initially dropped 70's systolic. tried vagal maneuvers and coughing with no success in breaking rhythm. Adenosine ordered but pt broke to sinus once
house STOCK CONTROL SUPERVISOR arrived
At 0243 pt back into sinus b/p improved to 106/66.
[2024-05-24 03:54] LABS: Hematocrit 36.2 % (37.0-47.0); Hemoglobin 11.8 g/dL (12.0-16.0); Mean Corp Hgb Conc. 32.6 g/dL (33.0-37.0); Mean Corpuscular Hgb 32.5 pg (27.0-31.0); Mean Corpuscular Volume 99.7 fL (81.0-99.0); Mean Platelet Volume 8.9 fL (7.4-10.4); Platelet Count 215 10^3/uL (130-400); Red Blood Cell Count 3.63 10^6/uL (4.20-5.40); Red Cell Dist. Width 14.8 % (11.5-14.5); White Blood Cell Count 5.5 10^3/uL (4.8-10.8)
[2024-05-24 04:19] LABS: Blood Urea Nitrogen 23 mg/dl (7-17); Calcium 8.4 mg/dl (8.4-10.2); Carbon Dioxide 34 mmol/L (22-30); Chloride 95 mmol/L (98-107); Estimated Creatinine Clearance 36 ml/min; Glucose 77 mg/dl (70-99); Magnesium 2.1 mg/dl (1.6-2.3); Potassium 3.7 mmol/L (3.5-5.1); Sodium 136 mmol/L (135-145); eGFR > 60.00
--- NOTE | 2024-05-24 08:31 | W.PN.CD ---
Today's Communication / Plan
-
Lasix 20 mg IV twice daily
Increase sotalol to 80 mg twice daily
Please obtain ECG after p.m. dose of sotalol
Impression / Plan
-
Madhuri Mccloud is an 83 yo female with paroxysmal Afib on Eliquis and Sotalol, HFpEF, HLD, SVT and h/o left breast cancer, who presents to the ER with c/o rapid heart rate, seen by PCP and sent to the ER for evaluation found to have SVT which broke
in the ER with adenosine. Cardiology is consulted for SVT and HFpEF exacerbation.
Asbestos Removal Supervisor: Dr. Palm
Supraventricular tachycardia
-Broke in the ER with 12 mg IV adenosine. Now in sinus rhythm but has 2 additional episodes this admission
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 The p waves are difficult to assess during the tachycardia that cannot ascertain if it is long RP or short RP tachycardia.
-Best option would be to do the EP study and ablate as needed.
-Increase dose of sotalol to 80 mg twice daily. Please obtain ECG after p.m. dose
- AT from PV is more likely given her age, hx of AF and biatrial enlargement on ECHO.
- Ablation of the AT or AVNRT vs PVI can be attempted.
Acute on chronic HFpEF
-Elevated NT proBNP on admission with pulmonary edema on chest x-ray. Weight is lowest that it has ever been so we will need to reestablish a dry weight.
-Echo July 2022: Normal BiV function, aortic sclerosis
-Continue Lasix 20 mg IV twice daily (home dose 20 mg p.o. daily)
-Continue dapagliflozin 10 mg daily
-Repeat echocardiogram 05/22/24: LVEF 65% and severe biatrial enlargement. RV more dilated and PASP in 40s mmHg now.
Paroxysmal atrial fibrillation
-Increased sotalol as above
-Continue reduced dose Eliquis (age, weight)
Subjective: She is not sure how she feels as she has not gotten up to move yet. She had an episode of SVT that self terminated around 2 AM last night. She was asymptomatic.
Physical Exam
Vital Signs/Labs
Vital Signs
Temp Pulse Resp BP Pulse Ox
98.5 F 81 20 99/58 94
05/24/24 07:18 05/24/24 08:00 05/24/24 07:18 05/24/24 07:19 05/24/24 07:18
05/23/24 05/24/24 05/25/24
06:59 06:59 06:59
Actual Weight 44.9 kg 41.9 kg
05/24/24 02:43
05/24/24 02:43
Magnesium 2.1 mg/dl (1.6-2.3) 05/24/24 02:43
Triglycerides 77 mg/dl (10-149) 05/22/24 03:50
LDL Cholesterol, Calc 45 mg/dl 05/22/24 03:50
VLDL Cholesterol, Calc 15 mg/dl (0-30) 05/22/24 03:50
HDL Cholesterol 98 mg/dl 05/22/24 03:50
05/21/24
15:44
Zjl-J-Psyankpmrnz Pept 6450
LAB Results
05/21/24 05/22/24 05/22/24
21:36 03:50 08:50
Troponin I 0.039 H* 0.041 H* Cancelled
Physical Exam
Constitutional: No acute distress and Comfortable
Cardiovascular: Rhythm & rate is regular, Pedal edema is absent, S1S2 is normal and Murmur/rub/gallop absent
Respiratory: Respiratory effort normal and Crackles Present
Data Reviewed
-
Date of Service: May 24, 2024
Medical Decision Making: Reviewed Test Results, Independent Historian Assessment, Test Interpretation and Review of Case with other Provider
EKG: Tracing Personally Visualized and interpreted
Echo: Report Reviewed by me
Labs: Labs Reviewed by me
--- NOTE | 2024-05-24 08:32 | W.PN.HOSP.TC ---
Addendum entered and electronically signed by Gustavo Schultz MD 05/24/24 15:15:
SVT�acute event, intermittent
Cardiology made sotalol twice daily, continue to monitor on telemetry
EP planning for outpatient ablation
If goes back into SVT attempt vagal maneuvers first with 3 cc syringe
Acute on chronic HFpEF exacerbation
-Continue IV diuresis monitor daily upright weights, monitor urinary output keep K greater than 4 magnesium greater than 2
-- Close to euvolemia
Once cleared by cardiology for discharge, will plan to DC to [facility]
Original Note:
Today's Communication/Plan
-
;/
Assessment / Plan
Assessment / Plan
Assessment/Plan
#Supraventricular tachycardia
-History of svt
-Continue to monitor on telemetry
-Echocardiogram 05/22 LVEF 60-65%.Right ventricle is mildly dilated with reduced systolic function.Severe biatrial enlargement.
-Cardiology following
-Sotalol 80 mg twice daily
#Acute Hypoxic respiratory insufficiency secondary to below
#Acute on chronic HFpEF
-proBNP on presentation 6450
-Echocardiogram as above
-Continue diuresis with IV Lasix 20 mg twice daily
-Continued dapagliflozin 10 mg daily
-Monitor I's and O's, daily weights
-Monitor creatinine with diuresis
-Now on room air
-PT/OT
#Nonischemic myocardial injury
-now peaked
#Paroxysmal atrial fibrillation
-Currently normal sinus rhythm
-Continue sotalol
-Anticoagulation with Eliquis
#h/o Breast CA s/p Left Mastectomy
#Underweight
CODE STATUS DNR
DVT prophylaxis Eliquis
Anticipated Discharge: Within 24 hours
Subjective/Interval History
-
Date of Service: May 24, 2024
Objective Data
-
Labs:
Laboratory Results
05/24/24
02:43
WBC 5.5
Hgb 11.8 L
Hct 36.2 L
Plt Count 215
Sodium 136
Potassium 3.7
Chloride 95 L
Carbon Dioxide 34 H
BUN 23 H
Creatinine 0.8
Glucose 77
Calcium 8.4
Vital Signs:
Vital Signs
Temp Pulse Resp BP Pulse Ox
98.5 F 81 20 99/58 94
05/24/24 07:18 05/24/24 08:00 05/24/24 07:18 05/24/24 07:19 05/24/24 07:18
I&O
05/23/24 05/24/24 05/25/24
06:59 06:59 06:59
Output Total 1250 / 1250
Balance -1250 / -1250
Review of Systems
-
All other systems: Reviewed and negative (Except as documented)
Physical Exam
-
Respiratory: Rales and Crackles (Bilateral)
Cardiac: Regular Rhythm, S1/S2 and Tachycardic
GI: Soft, Nontender and Nondistended
Musculoskeletal: Edema, Right Lower Extrem and Edema, Left Lower Extrem
Neuro: Awake, Alert, Oriented and AO x 3
Psych: Calm
[2024-05-24] MEDS: ELIQUIS 2.5 MG PO ×2 (09:29→21:21)
[2024-05-24] MEDS: FLUSH (NSS) 1 FLUSH IV (09:32)
[2024-05-24] MEDS: LASIX 20 MG IV ×2 (09:35→17:23)
[2024-05-24] MEDS: FARXIGA 10 MG PO (09:35)
[2024-05-24] MEDS: BETAPACE PO (10:14)
[2024-05-24] MEDS: BETAPACE 80 MG PO ×2 (10:14→21:20)
--- NOTE | 2024-05-24 11:29 | PTCARENOTE ---
Received patient this morning resting in bed. Assisted oob to the chair to eat breakfast. Patient seen by cardiology and sotalol dosage increased to BID. While in the bathroom patient had episode of SVT with rates in the 140-150's. Patient returned
to her bed, now back in SR with HR 70's. Call villafana in reach, for EKG post sotalol at 1215.
--- NOTE | 2024-05-24 13:35 | CM ---
Reviewed chart. Received message that Mrs. Mccloud maybe ready for SNF/Rehab. tomorrow. Telephone call to [facility] Admission to confirm ability to accept tomorrow if stable. [facility] admissions confirms ability to accept
if approved by insurance. Telephone call to [facility] to start pre-cert. [facility] can not take her therapy notes from 05/22/24. Therapy tried to see her today but she was not medically appropriate due to having a episode of SVT
thia [facility] work-up in progress. The discharge plan is to go to [facility] SNF if bed available, and approved by insurance when medically stable.
[2024-05-25] VITALS (7 sets, daily range): BP systolic 90–123; BP diastolic 56–77; BMI 16.1
--- NOTE | 2024-05-25 01:43 | PTCARENOTE ---
Assumed care of the patient @ 1900. Pt sitting up in chair and 1 person assist back to bed. SR on the monitor VSS . EKG 2 hours post Sotalol dose QTc 477. Call villafana within reach.
[2024-05-25 03:43] LABS: % Basophils 0.5 % (0-2); % Immature Granulocytes 0.3 % (0-0.5); % Lymphocytes 29.1 % (20.5-51.1); % Neutrophils 48.1 % (42.2-75.2); Absolute Eosinophils 0.1 10^3/uL (0-0.7); Absolute Lymphocytes 1.2 10^3/uL (1.2-3.4); Absolute Monocytes 0.8 10^3/uL (0.1-0.6); Absolute Neutrophils 1.9 10^3/uL (1.4-6.5); Hematocrit 32.4 % (37.0-47.0); Hemoglobin 10.6 g/dL (12.0-16.0); Mean Corp Hgb Conc. 32.7 g/dL (33.0-37.0); Mean Corpuscular Hgb 32.8 pg (27.0-31.0); Mean Corpuscular Volume 100.3 fL (81.0-99.0); Mean Platelet Volume 8.8 fL (7.4-10.4); Nucleated Red Blood Cells % 0 %; Platelet Count 215 10^3/uL (130-400); Red Blood Cell Count 3.23 10^6/uL (4.20-5.40); Red Cell Dist. Width 14.6 % (11.5-14.5)
[2024-05-25 04:08] LABS: Blood Urea Nitrogen 28 mg/dl (7-17); Calcium 8.8 mg/dl (8.4-10.2); Carbon Dioxide 35 mmol/L (22-30); Chloride 94 mmol/L (98-107); Estimated Creatinine Clearance 29 ml/min; Glucose 80 mg/dl (70-99); Magnesium 2.2 mg/dl (1.6-2.3); Potassium 3.5 mmol/L (3.5-5.1); Sodium 135 mmol/L (135-145); eGFR 56.25
[2024-05-25] MEDS: LASIX IV (09:23)
[2024-05-25] MEDS: BETAPACE 80 MG PO ×2 (09:25→20:01)
[2024-05-25] MEDS: ELIQUIS 2.5 MG PO ×2 (09:25→20:01)
[2024-05-25] MEDS: FARXIGA 10 MG PO (09:25)
--- NOTE | 2024-05-25 12:09 | W.PN.HOSP.TC ---
Today's Communication/Plan
-
Assessment / Plan
Assessment / Plan
NAD, frail, thin
Scleral Anicteric
MMM
No JVD
CTABL
RRR, S1/S2
Soft, NT, ND, BS+
Warm, Dry
AAOx3
Calm
SVT�acute event, intermittent
Cardiology made sotalol twice daily, continue to monitor on telemetry
EP planning for outpatient ablation
If goes back into SVT attempt vagal maneuvers first with 3 cc syringe
Acute on chronic HFpEF exacerbation
Transition from IV to pO diuretics
monitor uop
follow HF diet
keep K >4, Mg >2
CM to continue to work on dispo
-[facility] if bed available, and approved by insurance when medically stable.
Anticipated Discharge: 24 - 48 hours
Subjective/Interval History
-
Date of Service: May 25, 2024
Seen and examined. No new complaints. No acute overnight events.
Sitting in bedside chair
No further thyroid dizziness shortness of breath chest pain
No heart racing sensations
Objective Data
-
Labs:
Laboratory Results
05/25/24
02:51
WBC 4.0 L
Hgb 10.6 L
Hct 32.4 L
Plt Count 215
Sodium 135
Potassium 3.5
Chloride 94 L
Carbon Dioxide 35 H
BUN 28 H
Creatinine 1.0
Glucose 80
Calcium 8.8
Vital Signs:
Vital Signs
Temp Pulse Resp BP Pulse Ox
98.8 F 70 18 91/56 92
05/25/24 11:02 05/25/24 08:00 05/25/24 11:02 05/25/24 07:44 05/25/24 11:02
I&O
05/24/24 05/25/24 05/26/24
06:59 06:59 06:59
Intake Total 820 / 820
Output Total 250 / 250
Balance 570 / 570
[2024-05-25] MEDS: KCL 40 MEQ PO ×2 (12:35→18:12)
--- NOTE | 2024-05-25 15:44 | W.PN.UPDATE ---
Update Note
Progress Note Update
-Telemetry and EKGs are stable on higher dose of sotalol (QTc is stable).
[2024-05-26] VITALS (8 sets, daily range): BP systolic 94–135; BP diastolic 62–84; PULSE 64; BMI 16.4
--- NOTE | 2024-05-26 00:02 | PTCARENOTE ---
Assumed care of the patient @ 1900. Pt sitting up in chair and 1 person assist back to bed. SR on the monitor VSS . EKG 2 hours post Sotalol dose QTc 442. Call villafana within reach.
--- NOTE | 2024-05-26 03:24 | W.PN.UPDATE ---
Update Note
Progress Note Update
Patient complained of dysuria. Urinalysis reflex to culture ordered
Abnormal result received.
Cefazolin 1gm q12 hrs ordered.
[2024-05-26 04:26] LABS: Hematocrit 36.1 % (37.0-47.0); Hemoglobin 11.6 g/dL (12.0-16.0); Mean Corp Hgb Conc. 32.1 g/dL (33.0-37.0); Mean Corpuscular Hgb 32.5 pg (27.0-31.0); Mean Corpuscular Volume 101.1 fL (81.0-99.0); Mean Platelet Volume 8.8 fL (7.4-10.4); Platelet Count 220 10^3/uL (130-400); Red Blood Cell Count 3.57 10^6/uL (4.20-5.40); Red Cell Dist. Width 14.7 % (11.5-14.5); White Blood Cell Count 4.2 10^3/uL (4.8-10.8)
[2024-05-26 04:57] LABS: Blood Urea Nitrogen 32 mg/dl (7-17); Calcium 9.1 mg/dl (8.4-10.2); Carbon Dioxide 29 mmol/L (22-30); Chloride 98 mmol/L (98-107); Estimated Creatinine Clearance 31 ml/min; Glucose 92 mg/dl (70-99); Potassium 5.4 mmol/L (3.5-5.1); Sodium 136 mmol/L (135-145); eGFR > 60.00
[2024-05-26 06:13] LABS: Urine Albumin 3+ (Neg - Trace); Urine Bilirubin Negative (Negative); Urine Color Amber; Urine Glucose 3+ (Negative); Urine Ketone Negative (Negative); Urine Leukocyte 3+ (Negative); Urine Nitrite Negative (Negative); Urine Occult Blood 4+ (Negative); Urine Specific Gravity 1.015 (<1.030); Urine Urobilinogen Negative (Neg - 1+)
[2024-05-26 06:22] LABS: Urine Character Mucus (Clear)
--- NOTE | 2024-05-26 06:53 | PTCARENOTE ---
Pt with new onset keke/ blood tinged urine and c/o burning sensation when urinating.Bruce CARO notified and ordered morning labs including UA results pending.
[2024-05-26 06:59] LABS: Urine Mucus Many; Urine Squamous Cell SEEN /LPF (Few)
[2024-05-26 07:00] LABS: Urine Amorphous Seen; Urine Urothelial Cell SEEN /LPF (FEW); Urine White Cell >100 /HPF (0-5)
[2024-05-26] MEDS: FARXIGA 10 MG PO (07:44)
[2024-05-26] MEDS: ELIQUIS 2.5 MG PO ×2 (07:44→19:57)
[2024-05-26] MEDS: LASIX 20 MG PO (07:44)
[2024-05-26] MEDS: BETAPACE 80 MG PO ×2 (07:45→19:57)
[2024-05-26] MEDS: ANCEF 5 IV ×2 (07:45→19:57)
[2024-05-26] MEDS: FLUSH (NSS) 1 FLUSH IV (07:48)
--- NOTE | 2024-05-26 11:54 | W.PN.HOSP.TC ---
Today's Communication/Plan
-
Started on atb for UTI complete x3days
Continue sotalol BID
Follow up Cardiology recs
Assessment / Plan
Assessment / Plan
NAD, frail, thin
Scleral Anicteric
MMM
No JVD
CTABL
RRR, S1/S2
Soft, NT, ND, BS+
Warm, Dry
AAOx3
Calm
SVT�acute event, intermittent
Cardiology made sotalol twice daily, continue to monitor on telemetry
EP planning for outpatient ablation
If goes back into SVT attempt vagal maneuvers first with 3 cc syringe
UTI with c/o Dysuria
-started on atb complete 3d course
follow up ucx
-on juan pabloa, will hold this for now, ua shows glucosuria
Acute on chronic HFpEF exacerbation
Transition from IV to pO diuretics
monitor uop
follow HF diet
keep K >4, Mg >2
hyperK
repeat bmp stat
delta of >2
not sure if this is a lab error or true
monitor does not show evidence of hyperK changes
if repeat remains high will check ekg, give temporizing measure, lokelma nd start low K diet, dc any/all meds that are k sparing
CM to continue to work on dispo
-[facility] SNF if bed available, and approved by insurance
Anticipated Discharge: Within 24 hours
Subjective/Interval History
-
Date of Service: May 26, 2024
seen and emamined
dysuria overnight, started on atb
no acuteo venright events
Objective Data
-
Labs:
Laboratory Results
05/26/24
03:33
WBC 4.2 L
Hgb 11.6 L
Hct 36.1 L
Plt Count 220
Sodium 136
Potassium 5.4 H D
Chloride 98
Carbon Dioxide 29
BUN 32 H
Creatinine 0.9
Glucose 92
Calcium 9.1
Vital Signs:
Vital Signs
Temp Pulse Resp BP Pulse Ox
98 F 56 16 111/68 94
05/26/24 07:35 05/26/24 10:00 05/26/24 07:35 05/26/24 07:33 05/26/24 09:20
I&O
05/25/24 05/26/24 05/27/24
06:59 06:59 06:59
Intake Total 820 / 820 480 / 480
Output Total 250 / 250 200 / 200
Balance 570 / 570 480 / 480 -200 / -200
--- NOTE | 2024-05-26 12:35 | PTCARENOTE ---
Pt sitting OOB in chair all morning, for breakfast and lunch, good appetite. HR Currently SB 40-50's. Pt fell asleep in chair, awakens easily, states she feels tired but denies lightheadedness. Dr Ambriz notified of HR in upper 40-50's.
[2024-05-26 12:52] LABS: Urine Albumin 3+ (Neg - Trace); Urine Bilirubin Negative (Negative); Urine Character Slightly Cloudy (Clear); Urine Color Yellow; Urine Glucose 4+ (Negative); Urine Ketone Negative (Negative); Urine Leukocyte 3+ (Negative); Urine Nitrite Negative (Negative); Urine Occult Blood 4+ (Negative); Urine Urobilinogen Negative (Neg - 1+)
[2024-05-26 13:08] LABS: Urine Bacteria Few (Negative); Urine Red Blood Cell 0-2 /HPF (0-2); Urine Squamous Cell 0-2 /LPF (Few); Urine White Cell 60-70 /HPF (0-5)
[2024-05-26 14:29] LABS: Blood Urea Nitrogen 31 mg/dl (7-17); Calcium 9.2 mg/dl (8.4-10.2); Carbon Dioxide 30 mmol/L (22-30); Chloride 96 mmol/L (98-107); Estimated Creatinine Clearance 32 ml/min; Glucose 123 mg/dl (70-99); Potassium 4.6 mmol/L (3.5-5.1); Sodium 136 mmol/L (135-145); eGFR > 60.00
--- NOTE | 2024-05-26 15:07 | W.PN.CD ---
Today's Communication / Plan
-
-Sinus bradycardia down to ~45 BPM on telemetry; no significant pauses.
-Continue sotalol 80 mg twice daily; per primary EP [employer] Build[employer] to reevaluate tomorrow.
Impression / Plan
-
Madhuir Mccloud is an 83 yo female with paroxysmal Afib on Eliquis and Sotalol, HFpEF, HLD, SVT and h/o left breast cancer, who presents to the ER with c/o rapid heart rate, seen by PCP and sent to the ER for evaluation found to have SVT which broke
in the ER with adenosine. Cardiology is consulted for SVT and HFpEF exacerbation.
Metal Buildings Assembler: Dr. Palm
Supraventricular tachycardia
-Broke in the ER with 12 mg IV adenosine. Now in sinus rhythm but has 2 additional episodes this admission
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 The p waves are difficult to assess during the tachycardia that cannot ascertain if it is long RP or short RP tachycardia.
-Best option would be to do the EP study and ablate as needed.
-Sinus bradycardia down to ~45 BPM on telemetry; no significant pauses.
-Continue sotalol 80 mg twice daily; per primary EP [employer] to reevaluate tomorrow.
- AT from PV is more likely given her age, hx of AF and biatrial enlargement on ECHO.
- Ablation of the AT or AVNRT vs PVI can be attempted.
Acute on chronic HFpEF
-Elevated NT proBNP on admission with pulmonary edema on chest x-ray. Weight is lowest that it has ever been so we will need to reestablish a dry weight.
-Echo July 2022: Normal BiV function, aortic sclerosis
-Transitioned from IV Lasix to Lasix 20 mg PO daily.
-Continue dapagliflozin 10 mg daily.
-Repeat echocardiogram 05/22/24: LVEF 65% and severe biatrial enlargement. RV more dilated and PASP in 40s mmHg now.
Paroxysmal atrial fibrillation
-Continue sotalol as above.
-Continue reduced dose Eliquis (age, weight).
Physical Exam
Vital Signs/Labs
Vital Signs
Temp Pulse Resp BP Pulse Ox
97.4 F 56 20 111/68 90
05/26/24 12:00 05/26/24 10:00 05/26/24 12:00 05/26/24 07:33 05/26/24 12:00
05/25/24 05/26/24 05/27/24
06:59 06:59 06:59
Actual Weight 42.1 kg
05/26/24 03:33
05/26/24 13:38
Magnesium 2.2 mg/dl (1.6-2.3) 05/25/24 02:51
Triglycerides 77 mg/dl (10-149) 05/22/24 03:50
LDL Cholesterol, Calc 45 mg/dl 05/22/24 03:50
VLDL Cholesterol, Calc 15 mg/dl (0-30) 05/22/24 03:50
HDL Cholesterol 98 mg/dl 05/22/24 03:50
05/21/24
15:44
Ief-V-Eqygueurnwo Pept 6450
Physical Exam
Constitutional: No acute distress and Comfortable
EENT: Anicteric
Cardiovascular: Rhythm & rate is regular, Pedal edema present (Trace), Systolic murmur present (2/6) and S1S2 is normal
Respiratory: Respiratory effort normal and Rhonchi Present (Scant bibasilar rhonchi)
GI: Soft
Neuro/Psych: AO x 3
Other: Skin (Warm, dry)
Data Reviewed
-
Date of Service: May 26, 2024
EKG: Tracing Personally Visualized and interpreted (Telemetry: Sinus rhythm/bradycardia)
Labs: Labs Reviewed by me
--- NOTE | 2024-05-26 17:48 | PTCARENOTE ---
Pt walked to several times with assist of 1 and mert well. HR better this afternoon mostly 60's. 2nd urine specimen sent today reflex to culture as ordered. PT worked with Pt.
[2024-05-27] VITALS (8 sets, daily range): BP systolic 95–122; BP diastolic 55–75; PULSE 56; O2SAT 93; BMI 16.4
--- NOTE | 2024-05-27 00:48 | PTCARENOTE ---
Assumed care of the pt @ 1900. Pt AAOx3 sitting in the chair. Pt assisted to back to bed with walker. AAOx3 denies pain SR on the monitor VSS. Call villafana within reach.
--- NOTE | 2024-05-27 07:32 | W.PN.HOSP.TC ---
Today's Communication/Plan
-
;/
Assessment / Plan
Assessment / Plan
Assessment/Plan
#Supraventricular tachycardia
-History of svt
-Continue to monitor on telemetry
-Echocardiogram 05/22 LVEF 60-65%.Right ventricle is mildly dilated with reduced systolic function.Severe biatrial enlargement.
-Cardiology following
-Cardiology final recommendation, 120 mg daily
#Urinary tract infection
-Initiated on Ancef (D2)
-Urine cultures pending
-Hold Farxiga
-DC on Keflex to complete 5-day total course
#Acute Hypoxic respiratory insufficiency secondary to below
#Acute on chronic HFpEF
-proBNP on presentation 6450
-Echocardiogram as above
-Continue diuresis on daily p.o. Lasix 20 mg
-Continued dapagliflozin 10 mg daily
-Monitor I's and O's, daily weights
-Monitor creatinine with diuresis
-Now on room air
-PT/OT
#Nonischemic myocardial injury
-now peaked
#Paroxysmal atrial fibrillation
-Currently normal sinus rhythm
-Continue sotalol
-Anticoagulation with Eliquis
#h/o Breast CA s/p Left Mastectomy
#Underweight
CODE STATUS DNR
DVT prophylaxis Eliquis
Anticipated Discharge: Today
Subjective/Interval History
-
Date of Service: May 27, 2024
Objective Data
-
Vital Signs:
Vital Signs
Temp Pulse Resp BP Pulse Ox
97.7 F 66 16 122/72 93
05/27/24 05:48 05/27/24 05:48 05/27/24 05:48 05/27/24 05:48 05/27/24 05:48
I&O
05/26/24 05/27/24 05/28/24
06:59 06:59 06:59
Intake Total 480 / 480 480 / 480
Output Total 200 / 200
Balance 480 / 480 280 / 280
Review of Systems
-
All other systems: Reviewed and negative (Except as documented)
Physical Exam
-
General: Well Developed and Well Nourished
Respiratory: Clear to Auscultation
Cardiac: Regular Rhythm and S1/S2
GI: Soft, Nontender, Nondistended and Normal Bowel Sounds
Musculoskeletal: No Edema
Skin: Warm and Dry
Neuro: Awake, Alert, Oriented and AO x 3
Psych: Calm
--- NOTE | 2024-05-27 08:11 | W.PN.UPDATE ---
Update Note
Progress Note Update
I saw and evaluated the patient. I reviewed the resident�s note and agree with findings and plan as documented in the resident�s note.
Denies CP. States difficulty taking a deep breath which is chronic.
Gen: NAD, Awake and alert
Eyes: EOMI, PERRLA, no scleral icterus.
Neck: supple.
CV: RRR, +S1/S2, no m/r/g.
Resp: CTAB, no rales, wheezes, or rhonchi.
Abd: +BS, soft, NT, ND
Skin: No rashes.
Neuro: CN 2-12 intact, non-focal.
Psych: Normal mood and affect.
SVT:
-acute event, intermittent
-cont sotalol (dose changed to 120mg daily)
-cardiology following
-EP planning for outpatient ablation
UTI:
-cont Ancef
-follow UCx
-Farxiga on hold
Acute on chronic HFpEF:
-was on IV lasix, now transitioned to PO Lasix
DNR/Eliquis
Medically cleared for d/c. Case management aware.
--- NOTE | 2024-05-27 08:35 | W.PN.CD ---
Today's Communication / Plan
-
Decrease sotalol to 120 mg one time a day starting tomorrow
OK for home from my perspective
f/u in office will be arranged
Impression / Plan
-
Madhuri Mccloud is an 83 yo female with paroxysmal Afib on Eliquis and Sotalol, HFpEF, HLD, SVT and h/o left breast cancer, who presents to the ER with c/o rapid heart rate, seen by PCP and sent to the ER for evaluation found to have SVT which broke
in the ER with adenosine. Cardiology is consulted for SVT and HFpEF exacerbation.
Dot Etcher: Dr. Palm
SVT, adenosine responsive
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
- For her CrCl q24 hr sotalol. So will go from home dose 80 daily to 120 daily, (80 bid may be too much)
- Can consider EPS/FRA but at increased risk given frail status
No significant bradycardia seen
Acute on chronic HFpEF
- CXR/pBNP support dx-Elevated NT proBNP on admission with pulmonary edema on chest x-ray. Weight is lowest that it has ever been so we will need to reestablish a dry weight.
- Echo July 2022: Normal BiV function, aortic sclerosis
- Diuresed nicely, goal weight 42 kg
- Continue dapagliflozin 10 mg daily.
- Repeat echocardiogram 05/22/24: LVEF 65% and severe biatrial enlargement. RV more dilated and PASP in 40s mmHg now.
Paroxysmal atrial fibrillation
- Continue sotalol as above.
- Continue reduced dose Eliquis (age, weight)
- In sinus
Subjective: No palps/CP/dyspnea
Physical Exam
Vital Signs/Labs
Vital Signs
Temp Pulse Resp BP Pulse Ox
97.4 F 66 16 122/72 93
05/27/24 07:46 05/27/24 05:48 05/27/24 07:46 05/27/24 05:48 05/27/24 07:46
05/26/24 05/27/24 05/28/24
06:59 06:59 06:59
Actual Weight 42.1 kg 41.9 kg
05/26/24 03:33
05/26/24 13:38
Magnesium 2.2 mg/dl (1.6-2.3) 05/25/24 02:51
Triglycerides 77 mg/dl (10-149) 05/22/24 03:50
LDL Cholesterol, Calc 45 mg/dl 05/22/24 03:50
VLDL Cholesterol, Calc 15 mg/dl (0-30) 05/22/24 03:50
HDL Cholesterol 98 mg/dl 05/22/24 03:50
05/21/24
15:44
Guc-C-Dhibnwvbkez Pept 6450
Physical Exam
Constitutional: No acute distress
EENT: Anicteric
Cardiovascular: Rhythm & rate is regular and Pedal edema is absent
Respiratory: Respiratory effort normal and Lungs clear to auscul.
GI: Soft and Distention absent
Neuro/Psych: AO x 3
Data Reviewed
-
Date of Service: May 27, 2024
[2024-05-27] MEDS: LASIX 20 MG PO (09:23)
[2024-05-27] MEDS: ANCEF 5 IV ×2 (09:23→20:27)
[2024-05-27] MEDS: ELIQUIS 2.5 MG PO ×2 (09:24→20:27)
[2024-05-27] MEDS: BETAPACE 120 MG PO (10:01)
[2024-05-27] MEDS: BETAPACE PO (10:51)
--- NOTE | 2024-05-27 12:53 | CM ---
Chart reviewed. Patient is independent of ADLS, lives with her and son in a [address] [facility], ambulates with a RW. PT evaluation recommending SNF. Patient is agreeable. Patient would like to go to [facility]. Bed is available tomorrow. CM to work
on obtaining authorization. Plan is for the patient to go to [facility]. CM to follow
--- NOTE | 2024-05-27 16:49 | CM ---
Approved Skilled Level 05/28-05/31, NRD 06/01, [phone], Auth# [id number],
--- NOTE | 2024-05-27 18:00 | PTCARENOTE ---
Pt received this am with no c/o. Assisted oob to the chair and tolerated well all day. Pt ambulates to the BR with the walker and 1 assist. Gait steady.
[2024-05-28 03:20] VITALS: BP 98/57
[2024-05-28 03:44] VITALS: BMI 16.1
--- NOTE | 2024-05-28 04:30 | PTCARENOTE ---
Pt NSR on monitor. Denies pain or SOB. Ambulates with x1 assist and rolling walker.
[2024-05-28] MEDS: TYLENOL 650 MG PO (05:57)
[2024-05-28 06:58] VITALS: BP 89/62
[2024-05-28 07:00] VITALS: BP 90/52
--- NOTE | 2024-05-28 07:11 | W.PN.HOSP.TC ---
Today's Communication/Plan
-
;/
Assessment / Plan
Assessment / Plan
Assessment/Plan
#Supraventricular tachycardia
-History of svt
-Continue to monitor on telemetry
-Echocardiogram 05/22 LVEF 60-65%.Right ventricle is mildly dilated with reduced systolic function.Severe biatrial enlargement.
-Cardiology following
-Cardiology final recommendation, Sotalol 120 mg daily
#Urinary tract infection
-Completed Ancef
-Urine culture with sparse growth
-Hold Farxiga
#Acute Hypoxic respiratory insufficiency secondary to below
#Acute on chronic HFpEF
-proBNP on presentation 6450
-Echocardiogram as above
-Continue diuresis on daily p.o. Lasix 20 mg
-Continued dapagliflozin 10 mg daily
-Monitor I's and O's, daily weights
-Monitor creatinine with diuresis
-Now on room air
-PT/OT
#Nonischemic myocardial injury
-now peaked
#Paroxysmal atrial fibrillation
-Currently normal sinus rhythm
-Continue sotalol
-Anticoagulation with Eliquis
#h/o Breast CA s/p Left Mastectomy
#Underweight
CODE STATUS DNR
DVT prophylaxis Eliquis
Anticipated Discharge: Today
Subjective/Interval History
-
Date of Service: May 28, 2024
Objective Data
-
Vital Signs:
Vital Signs
Temp Pulse Resp BP Pulse Ox
98.3 F 66 16 90/52 97
05/28/24 03:25 05/28/24 07:00 05/28/24 03:25 05/28/24 07:00 05/28/24 03:25
I&O
05/27/24 05/28/24 05/29/24
06:59 06:59 06:59
Intake Total 480 / 480
Output Total 200 / 200 175 / 175
Balance 280 / 280 -175 / -175
Review of Systems
-
All other systems: Reviewed and negative (Except as documented)
Physical Exam
-
General: Well Developed and Well Nourished
Respiratory: Clear to Auscultation
Cardiac: Regular Rhythm and S1/S2
GI: Soft, Nontender, Nondistended and Normal Bowel Sounds
Musculoskeletal: No Edema
Skin: Warm and Dry
Neuro: Awake, Alert, Oriented and AO x 3
Psych: Calm
[2024-05-28] MEDS: BETAPACE 120 MG PO (07:30)
[2024-05-28] MEDS: ELIQUIS 2.5 MG PO (07:30)
[2024-05-28] MEDS: ANCEF 5 IV (07:30)
[2024-05-28] MEDS: FLUSH (NSS) 1 FLUSH IV (07:31)
[2024-05-28 07:33] VITALS: BP 111/75
[2024-05-28] MEDS: LASIX 20 MG PO (07:38)
--- NOTE | 2024-05-28 08:17 | W.PN.UPDATE ---
Addendum entered and electronically signed by Gabe Lazo MD 05/28/24 12:58:
Total time spent on d/c = 31 min. This included today's physical exam, progress note, review of laboratory and diagnostic data, preparation of discharge documents and prescriptions, and discussions about the pt's hospital course and discharge plan
with the patient and other medical geneticist involved in the patient's care.
Original Note:
Update Note
Progress Note Update
I saw and evaluated the patient. I reviewed the resident�s note and agree with findings and plan as documented in the resident�s note.
No new complaints.
Gen: NAD, Awake and alert
Eyes: EOMI, PERRLA, no scleral icterus.
Neck: supple.
CV: remains RRR, +S1/S2, no m/r/g.
Resp: faint rales R base
Abd: +BS, soft, NT, ND
Skin: No rashes. Trace ankle edema.
Neuro: CN 2-12 intact, non-focal.
Psych: Normal mood and affect.
SVT:
-acute event, intermittent
-cont sotalol (dose changed to 120mg daily)
-cardiology following
-EP planning for outpatient ablation
UTI:
-cont Ancef
-UCx with sparse growth
-Farxiga on hold
Acute on chronic HFpEF:
-was on IV lasix, now transitioned to PO Lasix
DNR/Eliquis
Remains medically cleared for d/c since 05/27/24AM. Case management aware.
[2024-05-28 11:09] VITALS: BP 97/56
--- NOTE | 2024-05-28 12:48 | W.DCSUMMARY ---
Discharge Summary
Discharge Data
Date of Admission: 05/21/24
Date of Discharge: 05/28/24
-
Pending Results: No
Hospital Course
Brief hospital course; Patient is an 83y female with PMH significant for recurrent SVT, A-Fib and CHF who presented to ED complaining of palpitations and SOB. Patient states that she noted racing and pounding heartbeats the afternoon prior to
admission. EMS was called and she received 6 mg adenosine by EMS. On presentation to ED she received an additional 12 mg with termination of SVT and adventist of sinus rhythm. proBNP on presentation 98592. Cardiology was consulted for SVT
and heart failure preserved ejection fraction exacerbation. An echocardiogram was ordered which showed LV ejection fraction is 60-65% by visual assessment. Diastolic flattening of the septum consistent with RV volume overload. Diastolic function
indeterminate due to mitral annular calcification. Patient was started on diuresis with IV Lasix 20 mg twice daily, with monitoring of creatinine with diuresis. Sotalol 80 mg dosage QD was changed to twice daily to prevent recurrence of SVT.
Throughout the course of hospital stay, she had 2 episodes of SVT that ceased with vagal maneuvers. Prior to discharge, cardiology's final recommendation was to discharge patient on sotalol 120 mg daily (due to creatinine clearance) and return
patient back to home oral Lasix 20 mg daily. Three days prior to discharge, patient began to experience symptoms of urinary tract infection. Urinalysis was ordered which showed pyuria. She was started on IV cefazolin to complete a 3-day course.
Farxiga was held, and to be restarted after urinary symptoms resolve. Patient is required to follow cardiology as an outpatient for possible outpatient ablation.
Discharge Plan
-
Patient Disposition: Intermediate/SNF
Discharge Diagnosis/Procedures: Supraventricular tachycardia
Acute on chronic HFpEF
Condition: Fair
Diet: 2 Gram Sodium
Activity: As tolerated
Instructions: *CBC Heart Failure Instructions
Referrals:
[facility] [Outside]
Toy Ochoa MD [Family Provider] -
Kristel Olivares CRNP [Specified Professional Personl] - 06/19/24 10:40 am
Additional Discharge Medication Instructions: sotalol changed to 120mg PO daily
Hold farxiga until UTI sx resolve.
Prescriptions:
New
sotalol 120 mg Tablet
120 mg PO DAILY Qty: 30 0RF
Continued
furosemide 20 mg Tablet
20 mg PO DAILY
estradiol 0.01 % (0.1 mg/gram) Cream
1 g VAGINAL Q2W
Gemtesa 75 mg Tablet
75 mg PO DAILY
Eliquis 5 MG tablet
2.5 mg PO BID
Held
dapagliflozin propanediol [Farxiga] 10 mg Tablet
10 mg PO DAILY
Hold Instructions: Resume on 06/01/24. hold until UTI resolves.
Discontinued
sotalol 80 MG tablet
80 mg PO DAILY
Discharge Orders:
Discharge Patient (As Directed); Ordered 05/28/24
Ordered By: Juanjo El
Care Plan Goals
Care Plan Goals:
Problem: Readiness for enhanced knowledge related to diagnosis and treatment plan
Goal: Understand your diagnosis and treatment plan needs, including medications if applicable.
Instructions: Know your diagnosis, underlying causes and treatment plan options, including medications if applicable. Consult with your health care team to learn about your diagnosis and treatment plan, including medications if applicable.
Discharge Date and Time
Print Language: MICRONESIAN
--- NOTE | 2024-05-28 13:30 | PTCARENOTE ---
Pt received this am with no c/o of any pain or sob. OOB to the chair and Br with one assist. Gait steady with the walker. Pt discharged to [facility] via wheelchair van. Attempted to give report to nurse receiving pt. Left message to
them to call nurse back for report.
--- NOTE | 2024-05-29 11:59 | W.HF.CON ---
Heart Failure
- LV Function
Left ventricular function study result: LV Ejection fraction >/= 50%
Ejection Fraction Percentage: 65
- ARNI
Patient already on ARNI: No
Heart Failure ARNI Not Indicated: LV Ejection Fraction >/= 40%
- ACEI/ARB
Patient already on ACEI/ARB: No
Heart Failure ACEI/ARB Not Indicated: LV Ejection Fraction > 40%
- Beta Angelita
Patient already on Evidence Based Beta Angelita: No
Heart Failure Evidence Based Beta Angelita Not Indicated: LV Ejection Fraction > 40%
- Mineralocorticord Receptor Antagonist
Patient already on MRA: No
Heart Failure MRA Not Indicated: LV Ejection Fraction > 40%
- SGLT-2 Inhibitor
Patient already on SGLT-2 Inhibitor: Yes
- Afib Anticoagulation
Patient already on Anticoagulation for Afib: Yes
- NYHA CHF Classification
NYHA CHF Classification Level: Class III - Symptoms w/ min exertion, interferes w/ nml daily activity
- ACC/AHA Stage
ACC/AHA Stage: Stage C: Symptomatic Heart Failure
== END 2024-05-28 13:21 | DRG 308 ==
LOC: IVU 20:08
PROVIDERS: Hospitalist; Nurse Practitioner Family; Student in an Organized Health Care Education/Training Program; ADMITTING PHYSICIAN Hospitalist; ATTENDING PHYSICIAN Internal Medicine; CONSULT PHYSICIAN Student in an Organized Health Care Education/Training Program; EMERGENCY PHYSICIAN Emergency Medicine; FAMILY PHYSICIAN Orthopaedic Surgery
DX: I47.10 Supraventricular tachycardia, unspecified (principal); I50.33 Acute on chronic diastolic (congestive) heart failure; N39.0 Urinary tract infection, site not specified; I5A Non-ischemic myocardial injury (non-traumatic); Z68.1 Body mass index [BMI] 19.9 or less, adult; I48.0 Paroxysmal atrial fibrillation; Z85.3 Personal history of malignant neoplasm of breast; Z90.12 Acquired absence of left breast and nipple; Z87.891 Personal history of nicotine dependence; Z88.0 Allergy status to penicillin; Z88.1 Allergy status to other antibiotic agents; Z88.2 Allergy status to sulfonamides; Z88.3 Allergy status to other anti-infective agents; Z66 Do not resuscitate; Z79.01 Long term (current) use of anticoagulants; Z79.899 Other long term (current) drug therapy; R09.02 Hypoxemia; R06.89 Other abnormalities of breathing; R63.6 Underweight; E78.00 Pure hypercholesterolemia, unspecified; I89.0 Lymphedema, not elsewhere classified; Z79.84 Long term (current) use of oral hypoglycemic drugs
CPT/HCPCS: 71045; 80048; 80053; 80061; 81003; 81015; 83735; 83880; 84443; 84484; 85025; 85027; 87077; 87086; 87147; 93005; 93306; 96375; 97116; 97163; 97167; 97535; 99285; J0153

== ENCOUNTER → 2024-05-31 11:05 | Outpatient (REF) | payer OTHER, SELFPAY ==
[2024-05-31 11:49] LABS: Hematocrit 32.3 % (37.0-47.0); Hemoglobin 10.1 g/dL (12.0-16.0); Mean Corp Hgb Conc. 31.3 g/dL (33.0-37.0); Mean Corpuscular Hgb 32.8 pg (27.0-31.0); Mean Corpuscular Volume 104.9 fL (81.0-99.0); Mean Platelet Volume 9.1 fL (7.4-10.4); Platelet Count 241 10^3/uL (130-400); Red Blood Cell Count 3.08 10^6/uL (4.20-5.40); Red Cell Dist. Width 15.3 % (11.5-14.5); White Blood Cell Count 5.2 10^3/uL (4.8-10.8)
[2024-05-31 12:06] LABS: ALT (SGPT) < 10 U/L (0-35); AST (SGOT) 27 U/L (14-36); Albumin 3.2 g/dl (3.5-5.0); Alkaline Phosphatase 81 U/L (38-126); Blood Urea Nitrogen 31 mg/dl (7-17); Calcium 9.1 mg/dl (8.4-10.2); Carbon Dioxide 30 mmol/L (22-30); Chloride 100 mmol/L (98-107); Glucose 77 mg/dl (70-99); Magnesium 2.3 mg/dl (1.6-2.3); Potassium 4.4 mmol/L (3.5-5.1); Sodium 134 mmol/L (135-145); Total Bilirubin 0.6 mg/dl (0.2-1.3); Total Protein 5.8 g/dl (6.3-8.2); eGFR > 60.00
== END ==
LOC: OLABWHC 11:05
PROVIDERS: ATTENDING PHYSICIAN Family Medicine
DX: I50.33 Acute on chronic diastolic (congestive) heart failure (principal)
CPT/HCPCS: 36415; 80053; 83735; 85027

== ENCOUNTER 2024-06-06 03:58 | Inpatient (IN) | payer OTHER, SELFPAY ==
[2024-06-05 23:54] VITALS: BMI 18.3
[2024-06-05 23:56] VITALS: BP 115/77
[2024-06-06] VITALS (49 sets, daily range): BP systolic 63–130; BP diastolic 33–94; PULSE 62–65; BMI 18.3
[2024-06-06 00:11] LABS: % Basophils 0.6 % (0-2); % Eosinophils 2.5 % (0-6); % Lymphocytes 29.9 % (20.5-51.1); % Monocytes 10.4 % (1.7-9.3); % Neutrophils 56.6 % (42.2-75.2); Absolute Eosinophils 0.1 10^3/uL (0-0.7); Absolute Lymphocytes 1.6 10^3/uL (1.2-3.4); Absolute Monocytes 0.6 10^3/uL (0.1-0.6); Hematocrit 36.3 % (37.0-47.0); Hemoglobin 11.6 g/dL (12.0-16.0); Mean Corpuscular Volume 103.4 fL (81.0-99.0); Mean Platelet Volume 9.2 fL (7.4-10.4); Nucleated Red Blood Cells % 0 %; Platelet Count 242 10^3/uL (130-400); Red Blood Cell Count 3.51 10^6/uL (4.20-5.40); Red Cell Dist. Width 15.5 % (11.5-14.5); White Blood Cell Count 5.3 10^3/uL (4.8-10.8)
[2024-06-06] MEDS: ADENOCARD 12 MG IV (00:11)
--- NOTE | 2024-06-06 00:17 | ED.GENMED ---
History of Present Illness
General
Chief Complaint: Heart Rate Problem
Source: patient
Exam Limitations: none
Time Seen by Provider: 06/05/24 23:53
Nursing documentation reviewed up to this point in time: agreed with
History of Present Illness
History of Present Illness:
83-year-old female with a past medical history of atrial fibrillation/SVT on Eliquis, hypertension, CHF who presents to the emergency was in his living; presents for evaluation of palpitations and shortness of breath. Patient reports symptoms
started earlier in the day and she notified staff at [facility] she was set to have some outpatient testing done, tonight palpitations worsened and EMS was called to bring her to the hospital. Per EMS on their arrival she had a narrow complex
regular tachycardia concerning for SVT�heart rate 170s. She was given initially 6 mg of adenosine with no effect; this was followed up with a dose of adenosine 12 mg IV which did slow rate but did not break SVT. I did review rhythm strips from EMS
and no clear flutter waves and not clearly A-fib. On arrival here she says she feels mildly dizzy, significant palpitations and shortness of breath. She denies any chest pain. She denies any other complaints. She sees Dr. Palm for cardiology.
She is on Eliquis and reports compliance.
Past History
Past History
ED Past Medical History: Arrthythmia (Atrial fibrillation on Eliquis), Cancer (Breast with Left mastectomy), CHF, Hypercholesterolemia and Other (Renal syndrome, lymphedema, cataracts); Negative IDDM or NIDDM
ED Past Surgical History: Tonsilectomy and Other (Mastectomy, tooth extraction)
Social History
Tobacco: Former smoker
Alcohol: None
Drug: None
Personal:
Living: with family
Employment: Retired
Family History
Family History: Other (Noncontributory)
Review of Systems
Review of Systems
All Other Systems: ROS reviewed and negative except as documented in HPI and ROS
Constitutional: Denies fever
Respiratory: Reports trouble breathing; Denies cough
Cardiac: Reports palpitations; Denies chest pain
ABD/GI: Denies abdominal pain, nausea or vomiting
: Denies flank pain
Musculoskeletal: Denies neck pain or back pain
Neurological: Reports dizzy; Denies headache
Phy Exam
Physical Exam
Physical Exam:
General: Awake, alert, oriented x3; frail and cachectic
Head: Normocephalic, atraumatic
Eyes: Conjunctiva normal, sclera anicteric
Throat: Airway intact, handling secretions
Neck: Trachea midline, no JVD
Lungs: Clear to auscultation bilaterally, no wheezing, rales, rhonchi
Heart: Tachycardia with regular rhythm, no murmurs, gallops, or rubs
Abd: Soft, non distended, nontender
Neuro: No gross deficits
Extremities: No edema in extremities, warm and well-perfused
Scores
Heart Failure Risk
Heart Failure Risk Score: Not Applicable
Heart Score for Chest Pain Patients
STEMI patient?: Not applicable
Withdrawal Assessment of Alcohol
Withdrawal Assessment Completed?: Not applicable
Course
Orders/Labs/Results
Orders:
Orders
06/05/24 23:51
EKG [Electrocardiogram (*1)] Urgent
Reason for Study: Tachycardia
EKG- Treatment ONCE
Complete Blood Count/With Diff Urgent
Comprehensive Metabolic Panel Urgent
06/05/24 23:58
NT-proBNP Urgent
CR Chest Portable - 1 View Urgent
Comment:
Reason For Exam: sob
Reason Study Needs to be Portable: Unable to Transport
06/06/24 00:02
EKG [Electrocardiogram (*1)] Urgent
Reason for Study: Tachycardia
06/06/24 00:03
EKG- Treatment ONCE
06/06/24 00:09
Adenosine [Adenocard] 12 mg IV NOW STA
06/06/24 00:22
Propofol [Diprivan] 20 ml .ROUTE .STK-MED
06/06/24 01:08
Amiodarone [Cordarone] 150 mg Dextrose 5%/Water 100 ml [D5w] 100 ml IV NOW
06/06/24 01:15
Amiodarone [Cordarone] 900 mg DEXTROSE 5% PVC-free BAG [D5W PVC-free BAG] 500 ml IV PER PROTOCOL
Initial Dose in mg/min:: 1
Duration of initial dose (hours):: 6
Subsequent dose in mg/min:: 0.5
Duration of subsequent dose (hours):: 18
Maximum dose in mg/min:: 1
Hold and notify provider if:: Heart rate < 60 BPM or SBP < 90 mmHg or MAP < 60 mmHg
06/06/24 01:23
TSH Reflex To Free T4 Urgent
Abnormal Lab Results
06/06/24
00:01
RBC 3.51 L 10^6/uL
(4.20-5.40)
Hgb 11.6 L g/dL
(12.0-16.0)
Hct 36.3 L %
(37.0-47.0)
MCV 103.4 H fL
(81.0-99.0)
MCH 33.0 H pg
(27.0-31.0)
MCHC 32.0 L g/dL
(33.0-37.0)
RDW 15.5 H %
(11.5-14.5)
Monocytes % 10.4 H %
(1.7-9.3)
BUN 23 H mg/dl
(7-17)
AST 42 H U/L
(14-36)
06/06/24 00:01
06/06/24 00:01
Vital Signs
Initial and Last Documented VS:
Initial Vital Signs
Pulse Resp
174 27
06/05/24 23:53 06/05/24 23:53
Last Documented Vital Signs
Temp Pulse Resp BP Pulse Ox
36.9 C 167 18 84/68 97
06/06/24 01:15 06/06/24 01:15 06/06/24 01:15 06/06/24 01:15 06/06/24 01:15
Procedures
Cardioversion
Indication:: SVT
Performed by:: Coy Mabry MD
Synchronized?: Yes
Energy Used: 150 joules
Number of attempts: 3 attempts (150J, 200J, 300J)
Successful?: No
ASA Risk Score: Class III
Any reaction or bad outcome to prior sedation/anesthesia?: No history of a reaction
Sedation level to be attained: moderate
Chart and allergies reviewed: Yes
Patient reassessed prior to sedation: Yes
Time out completed at (validating right patient & procedure): 00:35
History of difficult intubation: No
Airway free of obstruction: Yes
Patient has a gag reflex: Yes
Patient is able to open mouth: Yes
Patient has no dentures: Yes
Patient has no loose teeth: Yes
Medication administered by Provider during Moderate Sedation: IV Propofol (mg)
Total dose administered: 30
Time drug administered: 00:35
Start Time: 00:35
Stop Time: 00:45
MDM/Problems Addressed
Differential Diagnosis Includes:
Atrial fibrillation, atrial flutter, SVT, atrial tachycardia; CHF is a consideration given her shortness of breath but she does not overtly appear to be in CHF on exam
MDM/Problems Addressed:
83-year-old female with history as noted presents to the ER for evaluation of shortness of breath palpitations. Noted to have narrow complex tachycardia on EMS evaluation, did not break with adenosine from EMS. I reviewed prior visit and
apparently she had similar presentation where she did not fully break with EMS adenosine but broke to sinus rhythm on repeat dose in the emergency room; rhythm strips from EMS there does appear to be at least 1 sinus beat once loaded with adenosine.
For this reason repeat dose of adenosine was trialed here but unfortunately did not result in conversion to sinus rhythm. Case was discussed with cardiology patient is on Eliquis and compliant reasonable to trial cardioversion. Patient is
agreeable to this. We did send off basic labs, will plan for elective ED cardioversion. Will check a chest x-ray.
Labs reviewed: CBC shows marginal anemia, CMP no clinically significant abnormalities. proBNP marginal. Chest x-ray reviewed by me shows pulmonary vascular congestion no significant amount of edema.
Unfortunately despite 3 attempts at ED cardioversion under moderate sedation patient remains in SVT. She is having some postprocedural hypotension suspect propofol related. Will discuss with cardiology.
Discussed with cardiology�with low blood pressure and persistent heart rate in the 170s we will plan to treat with amiodarone bolus and infusion. Admit for continued monitoring on telemetry. Discussed with hospitalist.
Chronic conditions affecting care:
Atrial fib/SVT
*Radiology
Radiology exam reviewed: preliminary read by ED provider
*Pulse Oximetry
Patient hypoxic: no
*EKG
Interpreted by ED Provider?: Yes
Heart Rate: 174
Rate: tachycardiac
Rhythm: SVT
Tranquillity: right axis deviation
Interval: normal interval
QRS Pattern: normal QRS
Ischemia: non-specific ST changes
*Critical Care Note
Total Time (30-74mins, 75-104mins- exclusive of procedures): 31
comment:
Critical care statement: A total of 31 minutes of critical care time was provided for this patient. This includes management of unstable vital signs, evaluation of the patient at bedside, frequent reassessment, discussion with
consultants/hospitalist, and review of pertinent medical records. This time was separate from time utilized to perform any aforementioned documented procedures
Data Reviewed
Review of Other/Old Records Reveals: Labs, Records and Discharge Summary
Source: patient and records
Patient Management
Discussion with other providers: Hospitalist (Discussed with hospitalist) and Business Education Instructor (Discussed with cardiology)
Escalation/DeEscalation of care consider admission/obs:
Admission indicated
ED Attending Note
-
Portions of this chart may have been created with voice recognition software.� Occasional wrong word or��sound alike� substitutions may have occurred due to the inherent limitations of voice recognition software.
Discharge Plan
Departure
Patient Disposition: Admit
Date of Disposition: 06/06/24
Time of Disposition: 01:35
Admit to doctor: Bradley
Presentation/result/management discussed w/ accepting MD/DO: Hospitalist
Discharge Problem:
Sustained SVT
Prescriptions:
No Action
furosemide 20 mg Tablet
20 mg PO DAILY
estradiol 0.01 % (0.1 mg/gram) Cream
1 g VAGINAL Q2W
dapagliflozin propanediol [Farxiga] 10 mg Tablet
10 mg PO DAILY
Gemtesa 75 mg Tablet
75 mg PO DAILY
Eliquis 5 MG tablet
2.5 mg PO BID
sotalol 120 mg Tablet
120 mg PO DAILY Qty: 30 0RF
Referrals:
Andre Dowell MD [Family Provider] -
Interventions
Interventions:
*Risk Screen - Suicide Last Done: 06/05/24 23:54
*General Assessment Last Done: 06/05/24 23:54
*Neglect/Abuse Screening Last Done: 06/05/24 23:54
ED- Fall Risk Assessment Last Done: 06/05/24 23:54
*ED COVID-19 Vaccine History Last Done: 06/05/24 23:51
ED- Cardiac Assessment Last Done: 06/05/24 23:54
ED- Pulmonary Assessment Last Done: 06/05/24 23:54
Discharge Date and Time
Print Language: ITALIAN
[2024-06-06 00:34] LABS: ALT (SGPT) 16 U/L (0-35); AST (SGOT) 42 U/L (14-36); Albumin 3.7 g/dl (3.5-5.0); Alkaline Phosphatase 103 U/L (38-126); Blood Urea Nitrogen 23 mg/dl (7-17); Calcium 8.8 mg/dl (8.4-10.2); Carbon Dioxide 30 mmol/L (22-30); Chloride 103 mmol/L (98-107); Estimated Creatinine Clearance 41 ml/min; Glucose 95 mg/dl (70-99); Potassium 4.3 mmol/L (3.5-5.1); Sodium 139 mmol/L (135-145); Total Bilirubin 0.8 mg/dl (0.2-1.3); Total Protein 6.7 g/dl (6.3-8.2); eGFR > 60.00
[2024-06-06 01:09] LABS: NT-proBNP 2070 pg/ml
[2024-06-06] MEDS: CORDARONE 103 MG IV ×2 (01:24→19:58)
[2024-06-06] MEDS: CORDARONE 518 MG IV ×2 (01:35→20:12)
[2024-06-06 02:15] LABS: TSH Reflex To Free T4 4.31 uIU/ml (0.47-4.68)
--- NOTE | 2024-06-06 03:42 | HPS.HSE ---
Family Physician
-
Family Physician: Andre Dowell MD
Chief Complaint
-
Elevated Heart Rate
History of Present Illness
Patient is an 83y F with PMH significant for A-Fib and recent hospital stay for SVT who presents to ED from local [place] for evaluation of tachycardia. Patient was noted to be in recurrent SVT this evening at the [place]. She states that she had no
symptoms at the time. 911 was called and patient found to be in SVT with rates in the 170s. She received adenosine 6mg and 12mg via EMS with no improvement in her arrhythmia.
ED spoke with Cardiology who recommended amiodarone infusion.
At the time of my examination patient is resting comfortably. Her heart rate is in the 60s / 70s on amiodarone infusion.
Medical History
Past Medical History
Past Medical History: Reports Other
Additional Past Medical History:
Paroxysmal Atrial Fibrillation
SVT
Chronic HFpEF
Cognitive Impairment
Breast CA s/p Left Mastectomy
Past Surgical History: Reports Other
Additional Past Surgical History:
Left Mastectomy with Lymph Node Dissection
Cataracts
Social History
Tobacco: Former Smoker
Alcohol: Occasional
Personal:
Living: With Family
Family History
Family History: Not pertinent
Allergies / Home Medications
Allergies reflects when Allergies were last updated in [employer].
Home Medications with original date entered in [employer]
Allergy/Medication List:
Allergies
Allergy/AdvReac Type Severity Reaction Status Date / Time
amoxicillin [Amoxicillin] Allergy Unknown Verified 06/05/24 23:50
clarithromycin Allergy stomach Verified 06/05/24 23:50
upset
sulfamethoxazole Allergy Unknown Verified 06/05/24 23:50
trimethoprim Allergy Unknown Verified 06/05/24 23:50
Home Medications
apixaban 5 mg tablet (Eliquis) 2.5 mg PO BID Blood Clot Prevention/Tx 05/21/24
dapagliflozin propanediol 10 mg tablet (Farxiga) 10 mg PO DAILY 05/21/24
estradiol 0.01% (0.1 mg/gram) vaginal cream 1 g vaginal Q2W Hormonal Agent 05/21/24
furosemide 20 mg tablet 20 mg PO DAILY Fluid Retention/Swelling 05/21/24
vibegron 75 mg tablet (Gemtesa) 75 mg PO DAILY Urinary Issue 05/21/24
sotalol 120 mg tablet 120 mg PO DAILY #30 tabs 05/27/24
Review of Systems
-
History Source: Patient
A 12 point ROS was completed and negative except as noted: Yes
Constitutional: Denies Fever or Chills
Respiratory: Denies Cough or Trouble Breathing
Cardiac: Denies Chest Pain or Palpitations
Abdomen/GI: Denies Abdominal Pain, Nausea, Vomiting or Diarrhea
: Denies Dysuria or Frequency
Neurological: Denies Dizzy or Headache
Psych: Denies Depression or Anxiety
Physical Exam
Vital Signs
Vital Signs
Temp Pulse Resp BP Pulse Ox
98.5 F 70 14 112/76 98
06/06/24 01:15 06/06/24 03:00 06/06/24 03:00 06/06/24 03:00 06/06/24 02:45
Physical Exam
General: Other (83y F in mild distress due to dyspnea.)
HEENT: Moist mucous membranes and PERRLA
Respiratory: Other (Diffuse rales throughout.)
Cardiac: S1/S2, Regular Rhythm and Murmur (II/ DOMINIC)
GI: Soft, Non Tender, Non Distended and Normal Bowel Sounds
Musculoskeletal: No Clubbing, No Cyanosis and No Edema (1+ edema at ankles bilaterally.)
Neuro: AO x 3
Laboratory Results
-
06/06/24 00:01
06/06/24 00:01
Laboratory Results
Total Bilirubin 0.8 mg/dl (0.2-1.3) 06/06/24 00:01
AST 42 U/L (14-36) H 06/06/24 00:01
ALT 16 U/L (0-35) 06/06/24 00:01
Alkaline Phosphatase 103 U/L (38-126) 06/06/24 00:01
Troponin I Cancelled 06/05/24 23:51
Impression/Plan
-
A/P: Patient is an 83y F with PMH significant for A-Fib and CHF who presents to ED for evaluation of tachyarrhythmia.
Recurrent SVT
- Admit for further evaluation and treatment.
- No response to adenosine for EMS.
- Started on amiodarone protocol here in the ED and now in sinus rhythm
- Continue amiodarone per protocol.
- Cardiology evaluation in the AM for additional recommendations.
Chronic HFpEF
- Stable. No evdience of volume overload on exam.
- Continue current daily Lasix dose.
- Follow weights, I/Os, etc.
Paroxysmal Atrial Fibrillation
- Not in A-Fib at present.
- Continue Eliquis for stroke risk reduction.
DVT Prophylaxis: On Eliquis
Code Status: DNR
--- NOTE | 2024-06-06 06:32 | PTCARENOTE ---
Received patient from ED @0600. Patient awake and oriented x3, but forgetful. No c/o of SOB or chest pain. BP 129/81, NSR 60s, 95% on 3L. Amio gtt running @ 1 mg/min (33.3 ml/hr)-- started @ 01:35. Call villafana within reach.
[2024-06-06 06:35] LABS: Blood Urea Nitrogen 23 mg/dl (7-17); Calcium 8.5 mg/dl (8.4-10.2); Carbon Dioxide 27 mmol/L (22-30); Chloride 104 mmol/L (98-107); Estimated Creatinine Clearance 47 ml/min; Glucose 93 mg/dl (70-99); Sodium 138 mmol/L (135-145); eGFR > 60.00
[2024-06-06] MEDS: ELIQUIS 2.5 MG PO ×2 (08:09→19:14)
[2024-06-06] MEDS: LASIX 20 MG PO (08:09)
[2024-06-06 08:43] LABS: Hematocrit 33.4 % (37.0-47.0); Hemoglobin 10.8 g/dL (12.0-16.0); Mean Corp Hgb Conc. 32.3 g/dL (33.0-37.0); Mean Corpuscular Hgb 33.1 pg (27.0-31.0); Mean Corpuscular Volume 102.5 fL (81.0-99.0); Mean Platelet Volume 8.5 fL (7.4-10.4); Platelet Count 216 10^3/uL (130-400); Red Blood Cell Count 3.26 10^6/uL (4.20-5.40); Red Cell Dist. Width 15.4 % (11.5-14.5); White Blood Cell Count 4.9 10^3/uL (4.8-10.8)
[2024-06-06 08:55] LABS: Blood Urea Nitrogen 21 mg/dl (7-17); Calcium 8.4 mg/dl (8.4-10.2); Carbon Dioxide 28 mmol/L (22-30); Chloride 103 mmol/L (98-107); Estimated Creatinine Clearance 41 ml/min; Glucose 127 mg/dl (70-99); Sodium 137 mmol/L (135-145); eGFR > 60.00
--- NOTE | 2024-06-06 09:41 | CON.CAR ---
Consultation
Consultation Request
Date/Time Consultation Requested: 06/06/24
Date/Time Consultation Performed: 06/06/24
Reason for Consultation: tachycardia
Medical History
-
Chief Complaint: tachycardia
History of Present Illness:
Patient is an 83y F with PMH significant for A-Fib and recent hospital stay for SVT who presents to ED from local [place] for evaluation of tachycardia. Patient was noted to be in recurrent SVT this evening at the [place]. She states that she had no
symptoms at the time. 911 was called and patient found to be in SVT with rates in the 170s. She received adenosine 6mg and 12mg via EMS with no improvement in her arrhythmia.
She has a hx of AF and adenosine remained ineffective for her. 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
She was evaluated and was reporting palpitations, fatigue and lethargy and did not like being in the hospital.
A single bolus of Adenosine 6 mg was given that terminated the SVT into normal sinus rhythm.
Past Medical History
Past Medical History: Arrhythmias (Paroxysmal AF and SVT), CHF (HFpEF), HTN and Other (Breast CA s/p Left Mastectomy)
Past Surgical History: Other (Left Mastectomy with Lymph Node Dissection)
Social History
Tobacco: Former Smoker
Alcohol: Occasional
Personal:
Living: With Family
Family History
Family History: Reviewed & Not Pertinent
Allergies / Home Medications
Allergy/AdvReac Type Severity Reaction Status Date / Time
amoxicillin [Amoxicillin] Allergy Unknown Verified 06/05/24 23:50
clarithromycin Allergy stomach Verified 06/05/24 23:50
upset
sulfamethoxazole Allergy Unknown Verified 06/05/24 23:50
trimethoprim Allergy Unknown Verified 06/05/24 23:50
�Medication �Instructions �Recorded �Confirmed �Type
apixaban 5 mg tablet (Eliquis) 2.5 mg PO BID Blood Clot 05/21/24 06/06/24 History
Prevention/Tx
dapagliflozin propanediol 10 mg 10 mg PO DAILY 05/21/24 06/06/24 History
tablet (Farxiga)
estradiol 0.01% (0.1 mg/gram) 1 g vaginal Q2W Hormonal Agent 05/21/24 06/06/24 History
vaginal cream
furosemide 20 mg tablet 20 mg PO DAILY Fluid 05/21/24 06/06/24 History
Retention/Swelling
vibegron 75 mg tablet (Gemtesa) 75 mg PO DAILY Urinary Issue 05/21/24 06/06/24 History
sotalol 120 mg tablet 120 mg PO DAILY #30 tabs 05/27/24 06/06/24 Rx
Review of Systems
-
All other systems: Negative unless noted
Physical Exam
Vital Signs
Temp Pulse Resp BP Pulse Ox
97.4 F 61 20 130/81 96
06/06/24 07:01 06/06/24 07:15 06/06/24 07:01 06/06/24 07:00 06/06/24 07:01
Lab Results
06/06/24 08:28
06/06/24 08:28
Troponin I Cancelled 06/05/24 23:51
Vcm-C-Mthnhueziuo Pept 2070 pg/ml 06/06/24 00:34
Physical Exam
General: Well Developed, Well Nourished, No Apparent Distress and Other (tachycardiac in SVT but in 60s while in sinus rhythm, Severe kyphosis. )
HEENT: Normocephalic and Anicteric
Respiratory: Clear, Crackles and Non Labored Respirations
Cardiac: S1/S2, Regular Rhythm, Murmur and JVD; Negative Peripheral Edema
GI: Soft, Non Tender and Non Distended
Musculoskeletal: No Clubbing, No Cyanosis and No Edema
Skin: Warm and Dry
Neuro: Awake and Alert
Psych: Agitated and Other
Impression / Plan
-
83 yrs old woman with PAF and SVT presented with AF with RVR and converted to sinus with Amiodarone and had gone into SVT s/p adenosine and conversion to sinus now.
SVT
- On Sotalol previously
- Failed Sotalol 120 mg QD and recurrence of AF and SVT
- Now on Amiodarone gtt
- Will switch o PO 200 mg BID
- If more recurrences of SVT noted, can try verapamil (EF 60%) or digoxin (K 4.0 and Cr 0.8) .
- ECHO 05/22/24: LVEF 60%- severe biatrial enlargement.
PAF
- On Amiodarone now
- started at 200 mg BID for one week then 200 mg QD
- On Eliquis 2.5 mg BID (Age and wt - adjusted)
- Discussed retirement plans for AF and SVT management and refused the ablation.
- Conservative management for now.
Data Reviewed
-
EKG: Tracing Personally Visualized and interpreted, Report Reviewed by me and Discussed with Physician
Radiology: Report Reviewed by me
Labs: Labs Reviewed by me, Discussed with Physician, Discussed with Nurse, Discussed with Patient and Discussed with Family
Old Records: Reviewed
Critical Care Time (in minutes): 35
--- NOTE | 2024-06-06 09:45 | W.PN.HOSP.TC ---
Addendum entered and electronically signed by Xenia Spencer MD 06/06/24 09:51:
nonbillable
Original Note:
Today's Communication/Plan
-
s/p Adenosine
now oral Amio
continue Eliquis
monitor in IVU x 24 hours further
Assessment / Plan
Assessment / Plan
Assessment:
Recurrent SVT
Hx of underlying Parox Afib
- d/w Dr. Chi, likely initially parox Afib and did not respond to Adenosine via EMS/ER doses
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
- stop Amio drip; converted to oral Amiodarone this AM
- Continue Eliquis
Chronic HFpEF
- Stable. No evidence of volume overload on exam.
- Continue current daily Lasix dose.
- Follow weights, I/Os, etc.
DVT ppx: Eliquis
Code Status: DNR
Anticipated Discharge: Within 24 hours
Subjective/Interval History
-
Date of Service: June 06, 2024
s/p Adenosine given by Dr. Chi just now, broke SVT to HRs 60s
Objective Data
-
Labs:
Laboratory Results
06/06/24 06/06/24 06/06/24
00:01 06:12 06:16
WBC 5.3 Cancelled
Hgb 11.6 L Cancelled
Hct 36.3 L Cancelled
Plt Count 242 Cancelled
Sodium 139 138
Potassium 4.3 4.0
Chloride 103 104
Carbon Dioxide 30 27
BUN 23 H 23 H
Creatinine 0.8 0.7
Glucose 95 93
Calcium 8.8 8.5
Total Bilirubin 0.8
AST 42 H
ALT 16
Alkaline Phosphatase 103
06/06/24
08:28
WBC 4.9
Hgb 10.8 L
Hct 33.4 L
Plt Count 216
Sodium 137
Potassium 4.0
Chloride 103
Carbon Dioxide 28
BUN 21 H
Creatinine 0.8
Glucose 127 H
Calcium 8.4
Total Bilirubin
AST
ALT
Alkaline Phosphatase
Vital Signs:
Vital Signs
Temp Pulse Resp BP Pulse Ox
97.4 F 61 20 130/81 96
06/06/24 07:01 06/06/24 07:15 06/06/24 07:01 06/06/24 07:00 06/06/24 07:01
Physical Exam
-
General: No Apparent Distress
HEENT: Normocephalic and Atraumatic
Cardiac: Regular Rhythm and S1/S2
Genito-urinary: No Costovertebral Tender
Neuro: AO x 3
Hematologic / Lymphatic: No Lymphadenopathy
Psych: Calm
Data Reviewed
-
Total Time Spent with Patient (in minutes): 45
Labs: Labs Reviewed by me
--- NOTE | 2024-06-06 09:48 | PTCARENOTE ---
Assumed care of pt from night RN. Pt received awake and alert, 'wants to go home'. Bloodwork, EKG done as ordered. Pt bladder scanned for 80 ml's after voiding 100 cc's. Pt was initially in NSR 60's, about 0900 HR jumped to 140's and maintained,
Dr. Doshi in Adenosine 6 mg IV given at bedside, HR immediately slowed to 60's. Pt tolerated procedure well. at bedside updated. Pt ox3, denies any pain at present time, will continue to monitor closely.
[2024-06-06] MEDS: PACERONE 200 MG PO ×2 (10:05→19:14)
[2024-06-06] MEDS: ADENOCARD 6 MG IV (10:11)
--- NOTE | 2024-06-06 12:48 | CM ---
Addendum entered by Ashley Salomon 06/06/24 13:20:
Received telephone call from [facility] who states family is paying to hold the bed. Will need to pre-cert with her insurance for her to return to [facility].
Original Note:
Reviewed chart. Met with Mrs. Mccloud to review discharge plans. She states prior to admission she was at [facility] for short term SNF/Rehab. She states prior to admission she resides with her spouse and son in a one story home
with two steps the enter. She states prior to admission she ambulates with a walker. She has a walker and shower chair at home. She states she has a prescription plan and uses a [facility]. Will need to see her current functional level
to see if she will have any skilled care needs. Id she will need SNF/Rehab. she will need a pre-cert for SNF. Telephone call to Lashawn at [facility] to see if they would accept back if they have a bed. [facility] would accept her back if they have a bed and approved by her insurance. Medical work-up in progress. The discharge plan is to return home with spouse and son with [facility] verses SNF/Rehab. if indicated when medically stable.
--- NOTE | 2024-06-06 19:46 | W.PN.UPDATE ---
Update Note
Progress Note Update
-Patient noted with SVT, Hr in 150s, bp 108/82, afebrile, SPO2 95% RA. denies chest pain or SOB.
-Amiodarone bolus and drip ordered as recommended by electric motor repairer station cleaning porter.
- after the amiodarone gtt initiated the patient noted with bradycardia hr in 40s. Will hold the drip for now.
--- NOTE | 2024-06-06 20:55 | PTCARENOTE ---
Received patient at change of shift resting in the chair. Around 1899 the patient's HR was noted to be in the 150s. Upon entering the patient's room she reported palpitations but denied shortness of breath or chest pain. The telemetry strip appeared
to show SVT. BP 108/82 (91), SaO2 94% on RA. The patient was transferred to the bed, given her 2000 dose of PO Amiodarone. An ECG was completed. [facility] physician inventory control associate, Dr. Ambriz, was notified. [place] GORDO Smith was also notified. Amiodarone
bolus was ordered and an infusion was initiated, see MAR for further information. Around 2022 the patient's HR was noted to be in the 40s, telemetry stip appeared to show Sinus Bradycardia. The patient reported that her palpitations had resolved. An
ECG was completed which demonstrated normal sinus rhythm. Amiodarone infusion stopped per protocol, akbar CARO aware, infusion to remain off for now. Care ongoing.
[2024-06-07] VITALS (12 sets, daily range): BP systolic 99–127; BP diastolic 57–83; BMI 16.9
[2024-06-07 02:54] LABS: Hematocrit 32.4 % (37.0-47.0); Hemoglobin 10.7 g/dL (12.0-16.0); Mean Corpuscular Hgb 33.2 pg (27.0-31.0); Mean Corpuscular Volume 100.6 fL (81.0-99.0); Platelet Count 222 10^3/uL (130-400); Red Blood Cell Count 3.22 10^6/uL (4.20-5.40); Red Cell Dist. Width 15.4 % (11.5-14.5)
[2024-06-07 03:05] LABS: Blood Urea Nitrogen 21 mg/dl (7-17); Calcium 8.6 mg/dl (8.4-10.2); Carbon Dioxide 28 mmol/L (22-30); Chloride 105 mmol/L (98-107); Estimated Creatinine Clearance 44 ml/min; Glucose 84 mg/dl (70-99); Potassium 3.8 mmol/L (3.5-5.1); Sodium 137 mmol/L (135-145); eGFR > 60.00
--- NOTE | 2024-06-07 06:07 | PTCARENOTE ---
Around 0449 the patient's heart rate was noted to be in the 140s, appeared to be in SVT. Upon entering the patient's room she was asleep. When awakened by staff she reported palpitations. At 0455 a 2.8 second pause was noted followed by return to
normal sinus rhythm on the monitor. Blood pressure 110/77. Oxygen saturation on room air was 94%. House CLEANING STAFF SUPERVISOR aware. Plan of care ongoing.
[2024-06-07] MEDS: ELIQUIS 2.5 MG PO ×2 (07:48→20:04)
[2024-06-07] MEDS: LASIX 20 MG PO (07:48)
[2024-06-07] MEDS: PACERONE 200 MG PO (07:48)
--- NOTE | 2024-06-07 11:00 | PTCARENOTE ---
received patient this am, ambulated to chair with walker, stand by assist, mert. well. has difficulty holding urine therefore depends applied. patient presently sitting up in chair, NSR with a first degree, VSS. plus 2 pitting edema LE. lung buckley
scattered crackles, on RA o2 sat 96%. patient takes medications crushed in applesauce. left upper extremity restriction, edematous, compression sleeve on as per patient.
--- NOTE | 2024-06-07 12:42 | W.PN.CD ---
Today's Communication / Plan
-
- Decrease Amiodarone to 200 mg QD
- Start Digoxin 125 mcg QD
Impression / Plan
-
83 yrs old woman with PAF and SVT presented with AF with RVR and converted to sinus with Amiodarone and had gone into SVT s/p adenosine and conversion to sinus now.
SVT
- On Sotalol previously
- Failed Sotalol 120 mg QD and recurrence of AF and SVT
- On Amiodarone - restarted GTT with recurrence.
- Started on PO 200 mg BID
- With continued recurrences despite on Amiodarone, will add digoxin 125 mcg QD. (K 4.0 and Cr 0.8) .
- ECHO 05/22/24: LVEF 60%- severe biatrial enlargement.
PAF
- On Amiodarone now
- started at 200 mg BID - will start of digoxin, will switch to 200 mg QD
- On Eliquis 2.5 mg BID (Age and wt - adjusted)
- Discussed emt intermediate plans for AF and SVT management and refused the ablation.
- Conservative management for now.
Physical Exam
Vital Signs/Labs
Vital Signs
Temp Pulse Resp BP Pulse Ox
98.1 F 77 20 121/82 93
06/07/24 11:31 06/07/24 08:30 06/07/24 11:31 06/07/24 07:48 06/07/24 11:31
06/06/24 06/07/24 06/08/24
06:59 06:59 06:59
Actual Weight 48.2 kg 44.5 kg
06/07/24 02:45
06/07/24 02:45
06/06/24
00:34
Keb-P-Goqbgmqkfgh Pept 2070
LAB Results
06/05/24
23:51
Troponin I Cancelled
Physical Exam
Constitutional: No acute distress and Comfortable
EENT: Anicteric and Moist mucous membranes
Cardiovascular: Rhythm & rate is regular, Pedal edema is absent and JVD pressure is normal
Respiratory: Respiratory effort normal, Lungs clear to auscul. and Wheeze Absent
GI: Soft, Non tender and Normal bowel sounds
Neuro/Psych: Alert, Oriented and AO x 3
Data Reviewed
-
Date of Service: June 07, 2024
Medical Decision Making: Reviewed Test Results, Test Interpretation and Review of Case with other Provider
EKG: Tracing Personally Visualized and interpreted
Echo: Report Reviewed by me
Labs: Labs Reviewed by me
Old Records: Reviewed
--- NOTE | 2024-06-07 12:43 | PN.CDI ---
CDI
- -
CDI:
Physician Documentation Request
Admit Date: 06/06/24 03:58
Dear Doctor Tj,
Please review the following and provide your response in the progress notes.
Clinical Indicators:
Height: 5ft 4 in
Weight: 06/05 106 06/07 98
BMI: 06/05 18.3 06/05 16.9
Other Clinical Notes:06/06 note 'Initial assessment due to BMI 18.2 (underweight) '
Please provide an associated diagnosis related to the abnormal BMI:
BMI < or = to 19
Underweight
Weight Loss
Cachectic
Anorexia
- BMI is not significant
- Other
Use of terms such as suspected, likely, concern for, or probable (associated with a specific diagnosis that is being evaluated, monitored, or treated as if it exists) are acceptable and can be coded in the inpatient setting, when documented at the
time of discharge.
Thank you,
Daniela Sandra RN, BSN
CDI Specialist
tiger text
Please use your independent medical judgment in providing your response.
[2024-06-07] MEDS: LANOXIN 125 MCG PO (13:40)
--- NOTE | 2024-06-07 13:51 | W.PN.HOSP.TC ---
Today's Communication/Plan
-
oral amio and digoxin per EP/Cards
Assessment / Plan
Assessment / Plan
Assessment:
Recurrent SVT
Hx of underlying Parox Afib
- d/w Dr. Chi, likely initially parox Afib and did not respond to Adenosine via EMS/ER doses
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
- further episode of SVT 06/07 AM; now on oral Amio and oral digoxin
- continue Eliquis
- CBC/EP Cardiology following
Chronic HFpEF
- Stable. No evidence of volume overload on exam.
- Continue current daily Lasix dose.
- Follow weights, I/Os, etc.
Underweight
DVT ppx: Eliquis
Code Status: DNR
Anticipated Discharge: 24 - 48 hours
Subjective/Interval History
-
Date of Service: June 07, 2024
overnight went into SVT
Objective Data
-
Labs:
Laboratory Results
06/07/24
02:45
WBC 5.0
Hgb 10.7 L
Hct 32.4 L
Plt Count 222
Sodium 137
Potassium 3.8
Chloride 105
Carbon Dioxide 28
BUN 21 H
Creatinine 0.7
Glucose 84
Calcium 8.6
Vital Signs:
Vital Signs
Temp Pulse Resp BP Pulse Ox
98.1 F 160 20 121/82 93
06/07/24 11:31 06/07/24 13:40 06/07/24 11:31 06/07/24 07:48 06/07/24 11:31
I&O
06/06/24 06/07/24 06/08/24
06:59 06:59 06:59
Intake Total 320 / 320
Output Total 250 / 250
Balance 70 / 70
Physical Exam
-
General: No Apparent Distress
HEENT: Normocephalic and Atraumatic
Respiratory: Negative Wheezes
Cardiac: Regular Rhythm and S1/S2
GI: Soft
Genito-urinary: No Costovertebral Tender
Neuro: AO x 3
Hematologic / Lymphatic: No Lymphadenopathy
Psych: Calm
Data Reviewed
-
Total Time Spent with Patient (in minutes): 41
Labs: Labs Reviewed by me
--- NOTE | 2024-06-07 15:26 | CM ---
Reviewed chart. Met with Mr. and Mrs. Mccloud to review discharge plans. Reviewed with them that she maybe ready for transfer back to [facility] over the weekend. They are agreeable to returning to [facility] Admissions to
confirm ability to accept back over the weekend. [facility] Admissions confirms ability to accept back over weekend if medically stable and approved by insurance. Telephone call to [facility] Case Management to start pre-cert process.
Approved SNF/Rehab. from 06/08/24 to 06/12/24 with next review due on 06/12/24. The SNF auth. number is [id number]- Next Review to [phone] option #5. Reviewed with Mr. Mccloud wheelchair van and out of pocket cost. He is agreeable to
wheelchair van. Please also call Lashawn at [facility] at ([phone]) if she is discharged to go to [facility]. Medical work-up in progress. The discharge plan is to return to [facility] SNF on Monday
06/08/24 if medically stable.
--- NOTE | 2024-06-07 20:46 | PTCARENOTE ---
Received patient at change of shift. Patient A&O x3, sitting in chair. bedside. Patient requested compression sleeve for left arm as one she had was stretched out-- used tubigrip in place. BP 107/61, NSR 70s, 96% on room air. Discussed plan
of care with patient for evening. Patient verbalized understanding. Call villafana within reach.
[2024-06-08] VITALS (7 sets, daily range): BP systolic 111–124; BP diastolic 71–77; BMI 16.5
[2024-06-08 05:51] LABS: Blood Urea Nitrogen 18 mg/dl (7-17); Calcium 8.5 mg/dl (8.4-10.2); Carbon Dioxide 30 mmol/L (22-30); Chloride 99 mmol/L (98-107); Estimated Creatinine Clearance 44 ml/min; Glucose 73 mg/dl (70-99); Potassium 4.1 mmol/L (3.5-5.1); Sodium 136 mmol/L (135-145); eGFR > 60.00
[2024-06-08] MEDS: LASIX 20 MG PO (08:55)
[2024-06-08] MEDS: PACERONE 200 MG PO (08:55)
[2024-06-08] MEDS: ELIQUIS 2.5 MG PO (08:55)
--- NOTE | 2024-06-08 09:16 | PTCARENOTE ---
Assumed care of pt from night RN. Pt received asleep, but wakens easily to verba/ VSS, CM shows NSR with BBB and first degree AVB. POX 90% on RA. Pt adamantly refuses oxygen, states 'it makes me choke'. This nurse explained to pt that wearing
oxygen would make her feel a little better, and ease her breathing, but to no avail.
--- NOTE | 2024-06-08 10:11 | W.PN.CD ---
Addendum entered and electronically signed by Shruthi Velasquez MD 06/08/24 12:48:
I saw and examined the patient.
The BRONC BREAKER's note was reviewed and I agree with the note.
Comment: Patient was without complaint until I told her she would be going to SNF today, then she suddenly acted shocked, as though she didn't remember where she even was, asking if she could come back. She was breathing comfortably and again when
hearing about transport said she couldn't take a deep breath. Otherwise she was cta no w/r/g, rrr no m/r/g. She has a tubigrip compression on her left arm. She is only having brief runs of SVT. She isn't interested in ablation after d/w EP. She has
had dig added and will need a level checkedo 06/12/24.
Ok to discharge from a cardiac perspective. I will sign off.
D/w Dr Spencer who will check in on her prior to discharge.
Original Note:
Today's Communication / Plan
-
Plan home on amiodarone 200mg daily, digoxin 0.125mg po daily. Needs digoxin level on 06/12/24
Office will reach out to set up follow up appointment
Impression / Plan
-
83 yrs old woman with PAF and SVT presented with AF with RVR and converted to sinus with Amiodarone and had gone into SVT s/p adenosine and conversion to sinus now.
SVT
- On Sotalol previously
- Failed Sotalol 120 mg QD and recurrence of AF and SVT
- On Amiodarone - restarted GTT with recurrence.
- pt on once daily amio 200mg
- With continued recurrences despite on Amiodarone, digoxin 125 mcg QD added 06/07/24
- plan bmp and digoxin level 06/12
- ECHO 05/22/24: LVEF 60%- severe biatrial enlargement.
PAF
- started at 200 mg BID - will start of digoxin, will switch to 200 mg QD
- On Eliquis 2.5 mg BID (Age and wt - adjusted)
- Dr. 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
- Conservative management for now.
Physical Exam
Vital Signs/Labs
Vital Signs
Temp Pulse Resp BP Pulse Ox
98 F 84 16 115/71 90
06/08/24 07:25 06/08/24 09:00 06/08/24 07:25 06/08/24 07:25 06/08/24 09:04
06/07/24 06/08/24 06/09/24
06:59 06:59 06:59
Actual Weight 44.5 kg 43.5 kg
06/07/24 02:45
06/08/24 04:49
06/06/24
00:34
Ind-V-Pekdmiizsaa Pept 2069
LAB Results
06/05/24
23:51
Troponin I Cancelled
Physical Exam
Constitutional: No acute distress
Cardiovascular: Rhythm & rate is regular and Pedal edema is absent
Respiratory: Respiratory effort normal and Lungs clear to auscul.
GI: Soft, Non tender and Normal bowel sounds
Neuro/Psych: AO x 3
Data Reviewed
-
Date of Service: June 08, 2024
EKG: Other (Tele: NSR brief SVT )
Labs: Labs Reviewed by me
[2024-06-08] MEDS: LANOXIN 125 MCG PO (12:18)
--- NOTE | 2024-06-08 12:31 | W.PN.HOSP.TC ---
Today's Communication/Plan
-
dc SNF
Assessment / Plan
Assessment / Plan
Assessment:
Recurrent SVT
Hx of underlying Parox Afib
- d/w Dr. Chi, likely initially parox A.fib and did not respond to Adenosine via EMS/ER doses
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
- further episode of SVT 06/07 AM; now on oral Amio and oral digoxin and no further SVT in 24 hours
- continue Eliquis
- CBC/EP Cardiology follow up
Chronic HFpEF
- Stable. No evidence of volume overload on exam.
- Continue current daily Lasix dose.
- Follow weights, I/Os, etc.
Underweight
DVT ppx: Eliquis
Code Status: DNR
More than 30 minutes spent in discharge including
Final examination of the patient
Summarizing hospital stay
Instructions for continuing care to all relevant caregivers
Preparation of discharge records, prescriptions, and referral forms
Total time spent (in minutes): 41
Anticipated Discharge: Today
Subjective/Interval History
-
Date of Service: June 08, 2024
no further SVT
tolerating Amio and Digoxin
Objective Data
-
Labs:
Laboratory Results
06/08/24
04:49
Sodium 136
Potassium 4.1
Chloride 99
Carbon Dioxide 30
BUN 18 H
Creatinine 0.7
Glucose 73
Calcium 8.5
Vital Signs:
Vital Signs
Temp Pulse Resp BP Pulse Ox
98.1 F 76 16 114/76 95
06/08/24 12:25 06/08/24 12:25 06/08/24 12:25 06/08/24 12:25 06/08/24 12:25
I&O
06/07/24 06/08/24 06/09/24
06:59 06:59 06:59
Intake Total 320 / 320
Output Total 250 / 250
Balance 70 / 70
Physical Exam
-
General: No Apparent Distress
HEENT: Normocephalic and Atraumatic
Respiratory: Negative Wheezes
Cardiac: Regular Rhythm and S1/S2
GI: Soft and Nontender
Neuro: AO x 3
Psych: Calm
Data Reviewed
-
Total Time Spent with Patient (in minutes): 41
Labs: Labs Reviewed by me
--- NOTE | 2024-06-08 12:35 | W.DS.TRANS ---
DC Summary - Fisher Spear
-
Discharge Instructions:
Sleep Apnea Risk Low
Discharge Diagnosis/Procedures SVT
Diet Low Cholesterol
Activity As tolerated
Bathing Restrictions None
Other Services OT,PT
Instructions:
Stand-Alone Forms:
Changes to Home Medications: Yes
Discharge Medications:
DC Medications w/original date entered in I-Pulse
apixaban 5 mg tablet (Eliquis) 2.5 mg PO BID Blood Clot Prevention/Tx 05/21/24
dapagliflozin propanediol 10 mg tablet (Farxiga) 10 mg PO DAILY 05/21/24
estradiol 0.01% (0.1 mg/gram) vaginal cream 1 g vaginal Q2W Hormonal Agent 05/21/24
furosemide 20 mg tablet 20 mg PO DAILY Fluid Retention/Swelling 05/21/24
vibegron 75 mg tablet (Gemtesa) 75 mg PO DAILY Urinary Issue 05/21/24
amiodarone 200 mg tablet 200 mg PO DAILY #30 tabs 06/08/24
digoxin 125 mcg (0.125 mg) tablet 125 mcg PO NOON #30 tabs 06/08/24
Home Medication Changes
sotalol stopped; now on Amio/Dig
Pending Results: No
Total time spent discharging patient (in min): 41
--- NOTE | 2024-06-08 15:53 | PTCARENOTE ---
Report given to BENJA Marie at [facility]. Pt trtansported to facility via ambulance stretcher.
== END 2024-06-08 15:54 | DRG 309 ==
LOC: IVU 03:58
PROVIDERS: ADMITTING PHYSICIAN Hospitalist; ATTENDING PHYSICIAN Internal Medicine; EMERGENCY PHYSICIAN Emergency Medicine; FAMILY PHYSICIAN Family Medicine; OTHER PHYSICIAN Internal Medicine Cardiovascular Disease
DX: I47.19 Other supraventricular tachycardia (principal); I50.32 Chronic diastolic (congestive) heart failure; Z68.1 Body mass index [BMI] 19.9 or less, adult; I48.0 Paroxysmal atrial fibrillation; R63.6 Underweight; R41.89 Other symptoms and signs involving cognitive functions and awareness; I11.0 Hypertensive heart disease with heart failure; Z66 Do not resuscitate; Z79.01 Long term (current) use of anticoagulants; Z87.891 Personal history of nicotine dependence; Z90.12 Acquired absence of left breast and nipple; Z85.3 Personal history of malignant neoplasm of breast; Z88.0 Allergy status to penicillin; Z88.1 Allergy status to other antibiotic agents; Z88.2 Allergy status to sulfonamides; Z88.3 Allergy status to other anti-infective agents
CPT/HCPCS: 71045; 80048; 80053; 83880; 84443; 85025; 85027; 87070; 92960; 93005; 96365; 96366; 96375; 97163; 97167; 99152; 99291

== ENCOUNTER → 2024-06-11 10:37 | Outpatient (REF) | payer OTHER, SELFPAY ==
[2024-06-11 11:37] LABS: Hematocrit 33.4 % (37.0-47.0); Hemoglobin 10.8 g/dL (12.0-16.0); Mean Corp Hgb Conc. 32.3 g/dL (33.0-37.0); Mean Corpuscular Hgb 33.4 pg (27.0-31.0); Mean Corpuscular Volume 103.4 fL (81.0-99.0); Mean Platelet Volume 9.2 fL (7.4-10.4); Platelet Count 241 10^3/uL (130-400); Red Blood Cell Count 3.23 10^6/uL (4.20-5.40); Red Cell Dist. Width 15.9 % (11.5-14.5); White Blood Cell Count 4.5 10^3/uL (4.8-10.8)
[2024-06-11 11:50] LABS: ALT (SGPT) 13 U/L (0-35); AST (SGOT) 26 U/L (14-36); Albumin 3.3 g/dl (3.5-5.0); Alkaline Phosphatase 85 U/L (38-126); Blood Urea Nitrogen 19 mg/dl (7-17); Calcium 8.7 mg/dl (8.4-10.2); Carbon Dioxide 29 mmol/L (22-30); Chloride 102 mmol/L (98-107); Glucose 75 mg/dl (70-99); Magnesium 2.3 mg/dl (1.6-2.3); Potassium 3.9 mmol/L (3.5-5.1); Sodium 138 mmol/L (135-145); Total Bilirubin 0.9 mg/dl (0.2-1.3); eGFR > 60.00
== END ==
LOC: OLABWHC 10:37
PROVIDERS: ATTENDING PHYSICIAN Family Medicine
DX: I50.33 Acute on chronic diastolic (congestive) heart failure (principal); I47.10 Supraventricular tachycardia, unspecified; E78.2 Mixed hyperlipidemia
CPT/HCPCS: 36415; 80053; 83735; 85027

== ENCOUNTER 2024-08-15 20:49 | Inpatient (IN) | payer OTHER, SELFPAY ==
[2024-08-15] VITALS (26 sets, daily range): BP systolic 108–138; BP diastolic 49–69
[2024-08-15 16:02] LABS: % Basophils 0.2 % (0-2); % Eosinophils 0.5 % (0-6); % Immature Granulocytes 0.5 % (0-0.5); % Lymphocytes 17.1 % (20.5-51.1); % Monocytes 10.7 % (1.7-9.3); Absolute Lymphocytes 0.7 10^3/uL (1.2-3.4); Absolute Monocytes 0.5 10^3/uL (0.1-0.6); Hematocrit 37.9 % (37.0-47.0); Hemoglobin 12.6 g/dL (12.0-16.0); Mean Corp Hgb Conc. 33.2 g/dL (33.0-37.0); Mean Corpuscular Volume 102.2 fL (81.0-99.0); Mean Platelet Volume 9.4 fL (7.4-10.4); Nucleated Red Blood Cells % 0 %; Platelet Count 226 10^3/uL (130-400); Red Blood Cell Count 3.71 10^6/uL (4.20-5.40); Red Cell Dist. Width 16.9 % (11.5-14.5); White Blood Cell Count 4.2 10^3/uL (4.8-10.8)
[2024-08-15 16:15] LABS: ALT (SGPT) 24 U/L (0-35); AST (SGOT) 39 U/L (14-36); Albumin 4.3 g/dl (3.5-5.0); Alkaline Phosphatase 90 U/L (38-126); Blood Urea Nitrogen 39 mg/dl (7-17); Calcium 9.1 mg/dl (8.4-10.2); Carbon Dioxide 24 mmol/L (22-30); Chloride 104 mmol/L (98-107); Glucose 69 mg/dl (70-99); Potassium 4.6 mmol/L (3.5-5.1); Sodium 139 mmol/L (135-145); Total Bilirubin 1.2 mg/dl (0.2-1.3); Total Protein 7.6 g/dl (6.3-8.2); eGFR 41.06
[2024-08-15 16:33] LABS: Troponin I 0.606 ng/ml
[2024-08-15 17:01] LABS: Digoxin 3.5 ng/ml (0.8-2.0); NT-proBNP 5150 pg/ml
--- NOTE | 2024-08-15 17:06 | ED.GENMED ---
History of Present Illness
General
Chief Complaint: Breathing Problem
Time Seen by Provider: 08/15/24 15:56
History of Present Illness
History of Present Illness:
83-year-old female with history of A-fib, CHF, hypertension, hyperlipidemia, and paroxysmal SVT presents to the emergency department for evaluation of shortness of breath. She began with shortness of breath earlier this week and had her dose of
Lasix increased from 10 to 20 mg by her primary care physician. She was reportedly noted to have slightly abnormal renal function on outpatient labs thus sent to the ED. She reports significant lower extremity edema that has not improved in the
past few days on increased diuresis. Denies any chest pain or fevers.
Past History
Past History
ED Past Medical History: Arrthythmia (Atrial fibrillation on Eliquis), Cancer (Breast with Left mastectomy), CHF, Hypercholesterolemia and Other (Renal syndrome, lymphedema, cataracts); Negative IDDM or NIDDM
ED Past Surgical History: Tonsilectomy and Other (Mastectomy, tooth extraction)
Social History
Tobacco: Former smoker
Alcohol: None
Drug: None
Personal:
Living: with family
Employment: Retired
Family History
Family History: Other (Noncontributory)
Review of Systems
Review of Systems
Allergies reviewed?: Yes
All Other Systems: ROS reviewed and negative except as documented in HPI and ROS
Phy Exam
Physical Exam
Physical Exam:
GEN: Somnolent, markedly short of breath
Eyes: PERRLA, EOMs intact, no scleral icterus
HENT: NCAT, oral mucosa moist, positive JVD
Lungs: CTAB, no wheezes, rales, rhonchi, normal chest wall excursion
Cardiac: Markedly bradycardic, no murmur
Neuro: Somnolent but arouses easily, oriented x 3, moves all extremities freely
MSK: No gross deformity or ecchymosis. Massive bilateral lower extremity edema
Skin: No rashes, petechiae. Normal color, no pallor or jaundice.
Psych: Calm, cooperative, proper hygiene
Scores
Heart Failure Risk
Heart Failure Risk Score: Yes
History of Stroke or TIA: No
History of intubation for respiratory distress: No
Heart rate on ED arrival >/= 110: No
SaO2 <90% on arrival on room air: Yes
HR >/=110 during 3min walk test (or too ill to perform test): Yes
ECG has acute ischemic changes: No
Urea >/=12mmol/L (BUN 33.6mg/dL): Yes
Serum CO2>/=35mmol/L: No
Troponin I or T elevated to PR Level (0.4mg/dL): Yes
NT-proBNP >/=5,000ng/L (5,000pg/ml): Yes
HF Risk Score: 7
Admission Status: VERY HIGH RISK 69.8% Consider admission to hospital
Course
Orders/Labs/Results
Orders:
Orders
08/15/24 12:49
Electrocardiogram (*1) Urgent
Reason for Study: Shortness of Breath
08/15/24 12:50
EKG- Treatment ONCE
08/15/24 15:56
BNP [NT-proBNP] Urgent
Complete Blood Count/With Diff Urgent
Comprehensive Metabolic Panel Urgent
Digoxin Urgent
Comment: ADD ON
Troponin I Urgent
08/15/24 16:01
CR Chest Portable - 1 View Urgent
Comment:
Reason For Exam: SOB
Reason Study Needs to be Portable: Other
08/15/24 16:35
Add On- LAB Urgent
Tests Added?: digoxin level
08/15/24 17:07
Furosemide [Lasix] 20 mg IV NOW STA
08/15/24 17:10
Atropine Sulfate [Atropine 0.1 mg/ml Syringe] 1 mg .ROUTE .STK-MED ONE
08/15/24 17:35
Digoxin Immune Bienvenido [Digifab/Digibind] 3 vial 0.9% Sodium Chloride 50 ml [Nss] 50 ml IV NOW
08/16/24 Breakfast
NPO
Allow oral meds: Yes
Allow clear liquids: No
Abnormal Lab Results
08/15/24
15:56
WBC 4.2 L 10^3/uL
(4.8-10.8)
RBC 3.71 L 10^6/uL
(4.20-5.40)
MCV 102.2 H fL
(81.0-99.0)
MCH 34.0 H pg
(27.0-31.0)
RDW 16.9 H %
(11.5-14.5)
Absolute Lymphs (auto) 0.7 L 10^3/uL
(1.2-3.4)
Lymphocytes % 17.1 L %
(20.5-51.1)
Monocytes % 10.7 H %
(1.7-9.3)
BUN 39 H mg/dl
(7-17)
Creatinine 1.3 H mg/dL
(0.6-1.0)
Glucose 69 L mg/dl
(70-99)
AST 39 H U/L
(14-36)
Troponin I 0.606 H* ng/ml
Digoxin 3.5 H* ng/ml
(0.8-2.0)
08/15/24 15:56
08/15/24 15:56
Vital Signs
Initial and Last Documented VS:
Initial Vital Signs
Temp Pulse Resp BP Pulse Ox
97.7 F 44 17 125/55 90
08/15/24 12:43 08/15/24 12:43 08/15/24 12:43 08/15/24 12:43 08/15/24 12:43
Last Documented Vital Signs
Temp Pulse Resp BP Pulse Ox
97.7 F 40 20 121/59 90
08/15/24 12:43 08/15/24 18:02 08/15/24 17:20 08/15/24 18:02 08/15/24 17:20
MDM/Problems Addressed
MDM/Problems Addressed:
83-year-old female presents clinically in acute CHF evidenced by hypoxia and massive volume overload. She is noted to have severe bradycardia although she is hemodynamically stable, noted to have a elevated digoxin level which is likely due to poor
renal clearance in a patient with CKD. Concern for progressive digitalis toxicity, given Digibind due to critical level associated with bradycardia will admit to the medical service for further management
*Critical Care Note
Total Time (30-74mins, 75-104mins- exclusive of procedures): 60 minutes
comment:
Critical care time: 60 minutes
Critical care time was exclusive of: Separately billable procedures, treating other patients, and teaching time
Critical care was necessary to treat or prevent imminent or life-threatening deterioration of the following conditions: Severe bradycardia/CHF/dig toxicity
Critical care time spent personally by me on the following activities:
[x] Review of old charts
[x] Obtaining history from patient or surrogate
[x] Ordering and review of the laboratory studies
[x] Ordering and review of radiographic studies
[x] Ordering and performing treatments and interventions
[x] Patient patient's response to treatment
[x] Development of treatment plan with patient or surrogate
ED Attending Note
-
Portions of this chart may have been created with voice recognition software.� Occasional wrong word or��sound alike� substitutions may have occurred due to the inherent limitations of voice recognition software.
Discharge Plan
Departure
Patient Disposition: Admit
Date of Disposition: 08/15/24
Time of Disposition: 17:37
Admit to: IVU
Presentation/result/management discussed w/ accepting MD/DO: Hospitalist
Discharge Problem:
Acute CHF, Bradycardia, Digoxin toxicity
Prescriptions:
No Action
furosemide 20 mg Tablet
20 mg PO DAILY
estradiol 0.01 % (0.1 mg/gram) Cream
1 g VAGINAL Q2W
dapagliflozin propanediol [Farxiga] 10 mg Tablet
10 mg PO DAILY
Gemtesa 75 mg Tablet
75 mg PO DAILY
Eliquis 5 MG tablet
2.5 mg PO BID
amiodarone 200 mg Tablet
200 mg PO DAILY Qty: 30 0RF
digoxin 125 mcg (0.125 mg) Tablet
125 mcg PO NOON Qty: 30 0RF
Referrals:
Pete Ochoa PA-C [Family Provider] -
Interventions
Interventions:
*Risk Screen - Suicide Last Done: 08/15/24 12:42
*General Assessment Last Done: 08/15/24 12:43
*Neglect/Abuse Screening Last Done: 08/15/24 12:42
ED- Cardiac Assessment Last Done: 08/15/24 16:30
ED- Pulmonary Assessment Last Done: 08/15/24 16:30
Discharge Date and Time
Print Language: JAMAICAN
--- NOTE | 2024-08-15 17:31 | CON.CAR ---
Addendum entered and electronically signed by Jaya Padilla MD 08/15/24 17:46:
I saw and examined the patient.
The NETWORK PROGRAM MANAGER's note was reviewed and I agree with the note.
Comment: 83 y/o female (patient of Dr. Palm) with PAF on Eliquis, HFpEF, pSVT, hx breast cancer s/p left mastectomy with chemo/radiation. She is here for SOB and is seen to have bradycardia with HR 30's-40's. She is in no distress at the time of my
assessment, but does appear volume overloaded. She is confused and is able to provide very limited history.
Given significant bradycardia and elevated digoxin level discussed with EP about digoxin toxicity. However, after discussion less likely with digoxin level only 3.5. However, given history of recurrent tachycardia may need permanent pacemaker for
tachybradycardia.
-Avoid AV branden agents, digoxin and amiodarone
- N.p.o. after midnight for possible pacemaker will discuss further with EP
- Agree with gentle diuresis for now.
Original Note:
Consultation
Consultation Request
Date/Time Consultation Requested: 08/15/241714
Date/Time Consultation Performed: 08/15/240
Requesting Provider: Roque CASTELAN
Performing Provider: Patricia PETTIT for Dr. Padilla
Reason for Consultation: bradycardia
Medical History
-
Chief Complaint: SOB
History of Present Illness:
83 y/o female (patient of Dr. Palm) with PAF on Eliquis, HFpEF, pSVT, hx breast cancer s/p left mastectomy with chemo/radiation. She is here for SOB and is seen to have bradycardia with HR 30's-40's. She is in no distress at the time of my
assessment, but does appear volume overloaded.
Past Medical History
Past Medical History: Arrhythmias, Cancer and CHF
Social History
Personal:
Living: With Family
Family History
Family History: Reviewed & Not Pertinent
Allergies / Home Medications
Allergy/AdvReac Type Severity Reaction Status Date / Time
amoxicillin [Amoxicillin] Allergy Unknown Verified 08/15/24 12:42
clarithromycin Allergy stomach Verified 08/15/24 12:42
upset
sulfamethoxazole Allergy Unknown Verified 08/15/24 12:42
trimethoprim Allergy Unknown Verified 08/15/24 12:42
�Medication �Instructions �Recorded �Confirmed �Type
apixaban 5 mg tablet (Eliquis) 2.5 mg PO BID Blood Clot 05/21/24 06/06/24 History
Prevention/Tx
dapagliflozin propanediol 10 mg 10 mg PO DAILY 05/21/24 06/06/24 History
tablet (Farxiga)
estradiol 0.01% (0.1 mg/gram) 1 g vaginal Q2W Hormonal Agent 05/21/24 06/06/24 History
vaginal cream
furosemide 20 mg tablet 20 mg PO DAILY Fluid 05/21/24 06/06/24 History
Retention/Swelling
vibegron 75 mg tablet (Gemtesa) 75 mg PO DAILY Urinary Issue 05/21/24 06/06/24 History
amiodarone 200 mg tablet 200 mg PO DAILY #30 tabs 06/08/24 Rx
digoxin 125 mcg (0.125 mg) tablet 125 mcg PO NOON #30 tabs 06/08/24 Rx
Review of Systems
-
History Source: Patient
All other systems: Negative unless noted
Respiratory: Trouble Breathing
Physical Exam
Vital Signs
Temp Pulse Resp BP Pulse Ox
97.7 F 38 20 124/59 90
08/15/24 12:43 08/15/24 17:20 08/15/24 17:20 08/15/24 17:20 08/15/24 17:20
Lab Results
08/15/24 15:56
08/15/24 15:56
Troponin I 0.606 ng/ml H* 08/15/24 15:56
Ghe-M-Pgyavsabnfs Pept 5150 pg/ml 08/15/24 15:56
Physical Exam
General: No Apparent Distress
HEENT: Normocephalic and Anicteric
Respiratory: Other (diminished breath sounds)
Cardiac: Irregular Rhythm (bradycardia)
Musculoskeletal: Edema (mild BLE edema)
Skin: Warm and Dry
Neuro: Awake
Psych: Calm
Impression / Plan
-
Bradycardia:
-dig level 3.5- discussed with EP- does not think dig toxic at this level
-hold amio and dig
-no urgent need for temp wire at this time per EP
-Keep dopamine and atropine at bedside
-may need PPM for tachy/saba, so keep NPO after MN
-follow tele and BP's
Eugiy-py-oamnwch HFpEF:
-weight up, LE edema noted, BNP elevated, CXR suggestive CHF
-recent echo as noted
-agree with IV lasix x 1 and reassess in AM- this requires intensive monitoring
AFIB, paroxysmal:
-on Eliquis for OAC
-on amio and dig as OP, but plan as above
Data Reviewed
-
EKG: Tracing Personally Visualized and interpreted (Bradycardia 41 BPM, afib vs junctional)
Radiology: Report Reviewed by me (CXR: Mild CHF. Small left pleural effusion with associated atelectasis and/or pneumonia.)
Medical Tests (Nuc Med, Echo etc): Report Reviewed by me (Echo 05/22/24: Left ventricle is small in size with normal systolic function. LVEF 60-65%. Right ventricle is mildly dilated with reduced systolic function. Severe biatrial enlargement.
Moderate tricuspid regurgitation with mildly elevated pulmonary artery pressures (42 mmHg).)
Labs: Labs Reviewed by me
[2024-08-15] MEDS: LASIX 20 MG IV (18:02)
[2024-08-15] MEDS: [UNRECOGNIZED DRUG - OTHER] 62 VIAL IV (18:02)
--- NOTE | 2024-08-15 19:24 | HPS.HSE ---
Family Physician
<WILVER Dickerson - Last Filed: 08/15/24 21:20>
-
Family Physician: Pete Ochoa PA-C
Chief Complaint
<WILVER Dickerson - Last Filed: 08/15/24 21:20>
-
shortness of breath
History of Present Illness
Patient is a 83-year-old female with past medical history significant for paroxysmal atrial fibrillation, SVT, Chronic HFpEF, cognitive impairment and breast CA s/p left mastectomy who presented to [facility] ED shortness of breath.
Patient started with shortness of breath earlier in week and primary care increased dose of Lasix from 10 - 20 mg. Out patient labs had indicated slightly abnormal renal function so primary care referred to ED for evaluation. Patient presents with
significant lower extremity edema, that reportedly has not improved with increased diuretic. Patient reports lower back pain. Denies any fever, chills, cough, chest pain, nausea, vomiting, constipation, diarrhea or urinary symptoms.
Medical History
<WILVER Dickerson - Last Filed: 08/15/24 21:20>
Past Medical History
Past Medical History: Reports Other
Additional Past Medical History:
Paroxysmal Atrial Fibrillation
SVT
Chronic HFpEF
Cognitive Impairment
Breast CA s/p Left Mastectomy
Past Surgical History: Reports Other
Additional Past Surgical History:
Left Mastectomy with Lymph Node Dissection
Cataracts
Social History
Tobacco: Former Smoker
Alcohol: Occasional
Personal:
Living: With Family
Family History
Family History: Not pertinent
Allergies / Home Medications
Allergies reflects when Allergies were last updated in [employer].
Home Medications with original date entered in [employer]
<Tanmay Tomas MD - Last Filed: 08/15/24 20:35>
Allergies / Home Medications
Allergy/Medication List:
Allergies
Allergy/AdvReac Type Severity Reaction Status Date / Time
amoxicillin [Amoxicillin] Allergy Unknown Verified 08/15/24 12:42
clarithromycin Allergy stomach Verified 08/15/24 12:42
upset
sulfamethoxazole Allergy Unknown Verified 08/15/24 12:42
trimethoprim Allergy Unknown Verified 08/15/24 12:42
Home Medications
apixaban 5 mg tablet (Eliquis) 2.5 mg PO BID Blood Clot Prevention/Tx 05/21/24
dapagliflozin propanediol 10 mg tablet (Farxiga) 10 mg PO DAILY 05/21/24
estradiol 0.01% (0.1 mg/gram) vaginal cream 1 g vaginal Q2W Hormonal Agent 05/21/24
furosemide 20 mg tablet 20 mg PO DAILY Fluid Retention/Swelling 05/21/24
vibegron 75 mg tablet (Gemtesa) 75 mg PO DAILY Urinary Issue 05/21/24
amiodarone 200 mg tablet 200 mg PO DAILY #30 tabs 06/08/24
digoxin 125 mcg (0.125 mg) tablet 125 mcg PO NOON #30 tabs 06/08/24
Review of Systems
<WILVER Dickerson - Last Filed: 08/15/24 21:20>
-
History Source: Patient
Constitutional: Reports No Symptoms
EENT: Reports No Symptoms
Respiratory: Reports Trouble Breathing (shortness of breath )
Cardiac: Reports No Symptoms
Abdomen/GI: Reports No Symptoms
: Reports No Symptoms
Musculoskeletal: Reports Other (BLLE edema )
Skin: Reports No Symptoms
Neurological: Reports No Symptoms
Endocrine: Reports No Symptoms
Hematologic/Lymphatic: Reports No Symptoms
Psych: Reports No Symptoms
Physical Exam
<WILVER Dickerson - Last Filed: 08/15/24 21:20>
Vital Signs
Vital Signs
Temp Pulse Resp BP Pulse Ox
97.7 F 40 18 116/49 89
08/15/24 12:43 08/15/24 18:45 08/15/24 18:45 08/15/24 18:40 08/15/24 18:45
Physical Exam
General: Well Developed, Well Nourished, No Apparent Distress, Comfortable and Conversant
HEENT: NormoCephalic, Moist mucous membranes, Atraumatic, [place] Conjunctivae, Nose Appears Normal and Ears Appear Normal
Respiratory: Clear and Decreased Breath Sounds
Cardiac: S1/S2, Regular Rhythm, Bradycardia and JVD
GI: Soft, Non Tender, Non Distended and Normal Bowel Sounds; No Organomegaly
Rectal: Deferred by Provider
Genito-urinary: Deferred by me
Musculoskeletal: No Clubbing, No Cyanosis, Edema, Left Lower Extremity and Edema, Right Lower Extremity
Skin: Warm and IV/Catheter Site
Neuro: Awake and Nonfocal/grossly intact
Psych: Calm
Laboratory Results
<WILVER Dickerson - Last Filed: 08/15/24 21:20>
-
08/15/24 15:56
08/15/24 15:56
Laboratory Results
Total Bilirubin 1.2 mg/dl (0.2-1.3) 08/15/24 15:56
AST 39 U/L (14-36) H 08/15/24 15:56
ALT 24 U/L (0-35) 08/15/24 15:56
Alkaline Phosphatase 90 U/L (38-126) 08/15/24 15:56
Troponin I 0.606 ng/ml H* 08/15/24 15:56
Data Reviewed
<WILVER Dickerson - Last Filed: 08/15/24 21:20>
-
Diagnostic Radiology: Report Reviewed by me (CXR: Mild CHF. Small left pleural effusion with associated atelectasis and/or pneumonia.)
Medical Tests (Nuc Med, Echo, EKG etc): Report Reviewed by me (EKG: UNDETERMINED RHYTHM RIGHT SUPERIOR AXIS DEVIATION ANTEROSEPTAL INFARCT (CITED ON OR BEFORE 16-JUN-2017))
Lab Data: Labs Reviewed by me (BUN 39, Creat 1.3, eGFR 41.06, Trop 0.606, BNP 5150, Dig 3.5)
Impression/Plan
<WILVER Dickerson - Last Filed: 08/15/24 21:20>
-
IMPRESSION/PLAN:
#bradycardia
BUN 39, Creat 1.3, eGFR 41.06, Trop 0.606
EKG: UNDETERMINED RHYTHM
RIGHT SUPERIOR AXIS DEVIATION
ANTEROSEPTAL INFARCT (CITED ON OR BEFORE 16-JUN-2017)
CXR: Mild CHF. Small left pleural effusion with associated atelectasis and/or pneumonia.
- Admit to IVU
- hold digoxin and amiodarone
- NPO after midnight for potential pacer in morning
#Paroxysmal Atrial Fibrillation
EKG: UNDETERMINED RHYTHM
RIGHT SUPERIOR AXIS DEVIATION
ANTEROSEPTAL INFARCT (CITED ON OR BEFORE 16-JUN-2017)
- continue Eliquis
- hold amiodarone
#Chronic HFpEF
BNP 5150, Dig 3.5
- daily weights
- I & Os
- hold Digoxin
- Digibind given in ED
- IV Lasix in ED, reassess in morning
- continue Farxiga
#Cognitive Impairment
#SVT
#Breast CA s/p Left Mastectomy
Code status: DNR
DVT prophylaxis: Eliquis
--- NOTE | 2024-08-15 20:35 | W.PN.UPDATE ---
Update Note
Progress Note Update
I could not get any information from the patient has dementia and limited hisptorian
Information gathered by chart review and speaking with the ER staff and COVER CUTTER notes
This note serves as an addendum to the H&P by dope firer BRANDEE
Nel Benz
HPI
83F HX paroxysmal AF, HX SVT, Chronic HFpEF, cognitive impairment and breast CA s/p left mastectomy see at ER
- Sinus bardycardia
- for shortness of breath started arlier in week
- PCP increased dose of Lasix from 10 - 20 mg.
- out patient labs had indicated abnormal renal function , sent to ER by PCP
- significant Kristyn edema reportedly has not improved with increased diuretic.
- reports lower back pain.
ROS
Denies any fever, chills, cough, chest pain, nausea, vomiting, constipation, diarrhea or urinary symptoms.
PHX; see above
Reviewed VS:
Vital Signs
Temp Pulse Resp BP Pulse Ox
97.7 F 41 18 124/54 94
08/15/24 12:43 08/15/24 20:00 08/15/24 20:00 08/15/24 20:00 08/15/24 20:00
PE
Gen: No Apparent Distress, Comfortable and Conversant
HEENT: anicteric
Neck: supple
Lungs:CTA
Cor: S1/S2, Regular Rhythm, Bradycardia and JVD
Abdomen: Soft, Non Tender, Non Distended and Normal Bowel Sounds;
POLISH MAKER:NFND
MS:
Psych: limited historian suscpe cognitive decline or AMS
Labs
06/11/24 08/15/24
06:45 15:56
WBC 4.2 L
Hgb 12.6
Plt Count 226
BUN 39 H
Creatinine 1.3 H
eGFR > 60.00 41.06
Glucose 69 L
AST 39 H
Troponin I 0.606 H*
Lui-L-Jimjdccsnbe Pept 5150
Digoxin 3.5 H*
EKG
UNDETERMINED RHYTHM
RIGHT SUPERIOR AXIS DEVIATION
ANTEROSEPTAL INFARCT (CITED ON OR BEFORE 16-JUN-2017)
ABNORMAL ECG
WHEN COMPARED WITH ECG OF 06-JUN-2024 20:28,
CURRENT UNDETERMINED RHYTHM PRECLUDES RHYTHM COMPARISON, NEEDS REVIEW
NON-SPECIFIC CHANGE IN ST SEGMENT IN INFERIOR LEADS
NONSPECIFIC T WAVE ABNORMALITY NOW EVIDENT IN LATERAL LEADS
QT HAS SHORTENED
CXR:
Mild CHF. Small left pleural effusion with associated atelectasis and/or pneumonia.
05/22/24 TTE
- Left ventricle is small in size with normal systolic function.
- LVEF 60-65%.
- Right ventricle is mildly dilated with reduced systolic function.
- Severe biatrial enlargement.
- Moderate tricuspid regurgitation with mildly elevated pulmonary artery pressures (42 mmHg).
Compared to prior echocardiogram in July 2022, RV is more dilated and function
is worse. PASP has increased from 30-35 mmHg to 42 mmHg.
ASSESSMENT & PLAN
Severe bradycardia with abn EKG proabaly due to Dig toxicity ( Dig level 3.5 )
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
HX SVT
- Agree with Dig immune Bienvenido
- DC 'd Digoxin
- Avoid AV branden agents, digoxin and amiodarone
- Trend Digoxin in AM
- Fall precaution
- NPO after midnight for possible pacemaker per CBC card consult
- CBC card consulted
Volume overload with proBNP 5000s
Chronic CHF( HFpEF and reduced RVEF)
POLI suspect Cardiorenal syndrome ( BUN 39, Creat 1.3, eGFR 41.06)
- Agree with gentle IV diuresis and trend Cr
- continue Farxiga
- DC digoxin and Held amiodarone
- daily Wt and IOs
- monitor in IVU
Elevated TPNI 0.606
DDX: Likely NIMI rather than NSTEMI
- Trend TPN
HX Paroxysmal Atrial Fibrillation
RBBB
- continue Eliquis
- hold amiodarone due to severe bradycardia
Mild Cognitive Impairment
HX Breast CA s/p Left Mastectomy
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
DNR
IVU
[2024-08-16] VITALS (12 sets, daily range): BP systolic 108–125; BP diastolic 45–65; BMI 16.8
[2024-08-16 04:47] LABS: Hematocrit 34.8 % (37.0-47.0); Hemoglobin 11.5 g/dL (12.0-16.0); Mean Corpuscular Hgb 34.2 pg (27.0-31.0); Mean Corpuscular Volume 103.6 fL (81.0-99.0); Mean Platelet Volume 8.8 fL (7.4-10.4); Platelet Count 207 10^3/uL (130-400); Red Blood Cell Count 3.36 10^6/uL (4.20-5.40); Red Cell Dist. Width 16.9 % (11.5-14.5); White Blood Cell Count 4.9 10^3/uL (4.8-10.8)
[2024-08-16 05:14] LABS: Blood Urea Nitrogen 37 mg/dl (7-17); Calcium 8.8 mg/dl (8.4-10.2); Carbon Dioxide 28 mmol/L (22-30); Chloride 105 mmol/L (98-107); Digoxin 2.8 ng/ml (0.8-2.0); Estimated Creatinine Clearance 23 ml/min; Glucose 50 mg/dl (70-99); Potassium 3.9 mmol/L (3.5-5.1); Sodium 140 mmol/L (135-145); eGFR 41.06
[2024-08-16 05:21] LABS: Troponin I 0.494 ng/ml
[2024-08-16 05:28] LABS: Glucose - Point of Care 45 mg/dl (70-99)
[2024-08-16] MEDS: DEXTROSE 50% SYRINGE 12.5 GRAMS IV ×2 (05:45→09:58)
[2024-08-16 05:57] LABS: Glucose - Point of Care 142 mg/dl (70-99)
--- NOTE | 2024-08-16 06:28 | PTCARENOTE ---
Received patient from the ED overnight. AFib with heart rate in the 30s-40s. NPO for possible pacer today. Patient not happy that she is NPO and attempts to get other staff members to get her food. Education provided about importance of remaining
NPO for possible procedure. Patient stated 'I do not want a pacemaker. ' Blood sugar 45 this am. Hypoglycemia protocol followed. Next blood sugars due at 0745, 0945, and 0300.
[2024-08-16] MEDS: DESENEX/MITRAZOL/ZEASORB 1 APPLIC TOPICAL ×2 (07:57→19:26)
[2024-08-16 08:08] LABS: Glucose - Point of Care 71 mg/dl (70-99)
--- NOTE | 2024-08-16 08:34 | W.PN.CD ---
Today's Communication / Plan
-
Maintain NPO for now
said he would like to discuss wouldn't be able to do PPM until afternoon any ways
Impression / Plan
-
A/P: 83-year-old female with past medical history significant for paroxysmal atrial fibrillation, SVT, Chronic HFpEF, cognitive impairment and breast CA s/p left mastectomy who presented to [facility] ED shortness of breath.
She has tachy-saba syndrome and sinus node dysfunction given her history of hard to control tachycardias. I discussed PPM with her and her and they are unsure if that is waht they want.
Tachybrady syndrome now with significant bradycardia:
-holding off on PPM for now she and her would like to discuss
-Keep dopamine and atropine at bedside
-maintain NPO for now
-follow tele and BP's
Byyxr-dh-hbuxnlf HFpEF:
-repeat IV lasix
- holding SGLT2i for now
nonischemic myocardial injury
- from HF POLI and worsening tachybrady
AFIB, paroxysmal:
-hold Eliquis for possible PPM
Subjective: Mildly confused but able to answer questions appropriately
Physical Exam
Vital Signs/Labs
Vital Signs
Temp Pulse Resp BP Pulse Ox
97.6 F 44 17 125/59 94
08/16/24 07:50 08/16/24 06:00 08/16/24 06:00 08/16/24 06:00 08/16/24 06:00
08/15/24 08/16/24 08/17/24
06:59 06:59 06:59
Actual Weight 97 lb 10.636 oz
08/16/24 04:23
08/16/24 04:23
Digoxin 2.8 ng/ml (0.8-2.0) H* 08/16/24 04:23
08/15/24
15:56
Emv-M-Jqjmkfiqqes Pept 5150
LAB Results
08/15/24 08/16/24
15:56 04:23
Troponin I 0.606 H* 0.494 H*
Physical Exam
Constitutional: Other (uncomfortably and chronically ill appearing )
EENT: Anicteric
Cardiovascular: Rhythm & rate is regular and Pedal edema present
Respiratory: Other (poor inspiratory effort )
GI: Soft
Neuro/Psych: Alert and Oriented
Data Reviewed
-
Date of Service: August 16, 2024
Medical Decision Making: Reviewed Test Results
EKG: Tracing Personally Visualized and interpreted (sinus saba )
Echo: Report Reviewed by me
Labs: Labs Reviewed by me
[2024-08-16] MEDS: LASIX 40 MG IV (08:37)
[2024-08-16 10:05] LABS: Glucose - Point of Care 56 mg/dl (70-99)
[2024-08-16 10:26] LABS: Glucose - Point of Care 128 mg/dl (70-99)
--- NOTE | 2024-08-16 10:38 | W.PN.HOSP.TC ---
Addendum entered and electronically signed by Stephanie Sesay MD 08/16/24 18:33:
elevated trop- ? Non ischemic myocardial injury due to CHF?
Original Note:
Today's Communication/Plan
-
Start D10 for hypoglycemia
Hold amiodarone and digoxin
Echo
Lasix given
Assessment / Plan
Assessment / Plan
83 old female presented with shortness of breath and heart rate was in 30s to 40s
CVS: S1-S2 saba
Chest: CTA B/L
Abdomen: Soft, NT / Bowel sounds present
Extremities: B/L LE edema
Kyphosis
# Bradycardia
Dig level was 3.5
Hold digoxin and amiodarone
Dopamine and atropine as needed
May need pacemaker for tachybradycardia syndrome
Patient got Digibind twice
Cardiology consulted and following
Family wants to hold off on the pacemaker so now he wants to discuss with the rest of the family.
check ECHO
# Hypoglycemia-start D10
# Acute on chronic HFpEF
Lasix
Continue Farxiga
# Acute kidney injury-questionable cardiorenal syndrome
# N-wib-pcpzmizbiv
Hold Eliquis in anticipation of pacemaker
On amiodarone and digoxin as outpatient-hold.
# Ambulatory dysfunction/arthritis
# History of left breast cancer status postmastectomy
# Cognitive impairment
# Kyphosis with back pain-lidocaine patch ordered
# Underweight
# DVT prophylaxis-SCDs
# DNR status
Discussed with nursing at bedside
Discussed with cardiology
Called was unable to able to reach
Anticipated Discharge: > 48 hours
Subjective/Interval History
-
Date of Service: August 16, 2024
Objective Data
-
Labs:
Laboratory Results
08/16/24
04:23
WBC 4.9
Hgb 11.5 L
Hct 34.8 L
Plt Count 207
Sodium 140
Potassium 3.9
Chloride 105
Carbon Dioxide 28
BUN 37 H
Creatinine 1.3 H
Glucose 50 L*
Calcium 8.8
Vital Signs:
Vital Signs
Temp Pulse Resp BP Pulse Ox
97.6 F 48 17 116/61 94
08/16/24 07:50 08/16/24 08:37 08/16/24 06:00 08/16/24 08:37 08/16/24 06:00
I&O
08/15/24 08/16/24 08/17/24
06:59 06:59 06:59
Intake Total
Output Total 100 / 100
Balance -75 / -75
[2024-08-16] MEDS: LIDOCAINE 4% PATCH 1 PATCH TOPICAL (10:51)
[2024-08-16] MEDS: D10W 1000 IV (10:58)
--- NOTE | 2024-08-16 11:37 | PTCARENOTE ---
Addendum entered by Jenny San RN 08/16/24 12:13:
Tamara and Yair held as per Dr Padilla via TT.
Original Note:
Assumed care of patient at beginning of this shift from previous RN; patient NPO for pacemaker. CHG bath done and purewick changed in preparation for procedure. Dr Padilla up to see patient and talked with by phone regarding the procedure;
he informed this nurse that /patient want to wait to decide. He stated that patient is to remain NPO for now. Reviewed with him that HR remains 30s-low 40s.
Initial follow up accu check was 71, repeat at 09:54 was 56; IV dextrose given as per prn order. Repeat accu check 128. Dr Sesay made aware when on unit to see patient; D10 @ 40ml/hr ordered and hung.
Patient has been c/o mid/lower back pain; non-blanchable area noted. Dr Sesay ordered lidoderm patch; patient repositioned Q2h and prn.
[2024-08-16 12:24] LABS: Glucose - Point of Care 97 mg/dl (70-99)
--- NOTE | 2024-08-16 12:29 | CM ---
CM reviewed chart, placed call to spouse (home and cell) left voicemail requesting return call to complete initial assessment. Cardiology following. CM will continue to follow for all discharge planning needs.
Plan; return home with family, will depend on needs closer to d/c
[2024-08-16 14:56] LABS: Glucose - Point of Care 82 mg/dl (70-99)
--- NOTE | 2024-08-16 15:22 | PTCARENOTE ---
Confirmed with Dr Sesay that patient is not going for a pacemaker today; patient is allowed to eat.
--- NOTE | 2024-08-16 15:39 | W.PN.UPDATE ---
Update Note
Progress Note Update
Per discussion with cardiology no plans for pacemaker today. Pt's family not sure if they wants.
BP stable watch.
[2024-08-16 16:50] LABS: Glucose - Point of Care 105 mg/dl (70-99)
[2024-08-16 21:29] LABS: Glucose - Point of Care 140 mg/dl (70-99)
[2024-08-17] VITALS (12 sets, daily range): BP systolic 97–125; BP diastolic 44–65; BMI 17.4
[2024-08-17 03:01] LABS: Glucose - Point of Care 102 mg/dl (70-99)
[2024-08-17 04:29] LABS: Blood Urea Nitrogen 32 mg/dl (7-17); Calcium 8.5 mg/dl (8.4-10.2); Carbon Dioxide 32 mmol/L (22-30); Chloride 100 mmol/L (98-107); Digoxin 2.3 ng/ml (0.8-2.0); Estimated Creatinine Clearance 26 ml/min; Glucose 102 mg/dl (70-99); Magnesium 2.3 mg/dl (1.6-2.3); Potassium 3.6 mmol/L (3.5-5.1); Sodium 138 mmol/L (135-145); eGFR 45.19
--- NOTE | 2024-08-17 04:30 | PTCARENOTE ---
No acute events overnight. Remains in sinus saba with first degree in the 40s-50s. Oxygen weaned from 6 to 2 liters NC.
[2024-08-17 08:14] LABS: Glucose - Point of Care 99 mg/dl (70-99)
[2024-08-17] MEDS: LIDOCAINE 4% PATCH 1 PATCH TOPICAL (08:56)
[2024-08-17] MEDS: DESENEX/MITRAZOL/ZEASORB 1 APPLIC TOPICAL ×2 (08:56→19:49)
--- NOTE | 2024-08-17 09:54 | PTCARENOTE ---
Patient received from shift leader. Patient resting comfortably in bed. IVU patient. AAO, VSS. No events noted overnight. Patient in constant discomfort from the bed. Currently getting D10% through IV. No testing scheduled at this time. Call
villafana in reach.
--- NOTE | 2024-08-17 11:07 | W.PN.HOSP.TC ---
Today's Communication/Plan
-
Monitor heart rate
Lasix
Possible pacemaker Monday
Assessment / Plan
Assessment / Plan
83 old female presented with shortness of breath and heart rate was in 30s to 40s
CVS: S1-S2 saba
Chest: CTA B/L
Abdomen: Soft, NT / Bowel sounds present
Extremities: B/L LE edema
Kyphosis
# Bradycardia
Dig level was 3.5, down to 2.3 today
Hold digoxin and amiodarone
Dopamine and atropine as needed
May need pacemaker for tachybradycardia syndrome
Patient got Digibind twice
Echo 08/16/2024-normal LV size and function. EF 55 to 60%. Moderate to severe TR. Pulmonary artery pressure 55 mmHg.
# Hypoglycemia-improved. Stop D10. Hold Farxiga
# Acute on chronic HFpEF
Lasix 40 mg again today
Hold Farxiga
She may also have right-sided heart failure
Cautious diuresis with severe pulmonary hypertension
# Acute kidney injury-questionable cardiorenal syndrome. Follow creatinine
# E-roz-zzrivhgknw
Hold Eliquis in anticipation of pacemaker
On amiodarone and digoxin as outpatient-hold.
# Ambulatory dysfunction/arthritis
# History of left breast cancer status postmastectomy
# Cognitive impairment
# Kyphosis with back pain-lidocaine patch ordered
# Underweight
# DVT prophylaxis-add NAVJOT
# DNR status
Discussed with nursing at bedside
Discussed with at bedside. Patient and both want her to undergo pacemaker placement. We discussed possibly Monday
Discussed with cardiology
2 visits to the room today second time to meet with the
Time spent 52 minutes
Anticipated Discharge: > 48 hours
Subjective/Interval History
-
Date of Service: August 17, 2024
Objective Data
-
Labs:
Laboratory Results
08/17/24
03:31
Sodium 138
Potassium 3.6
Chloride 100
Carbon Dioxide 32 H
BUN 32 H
Creatinine 1.2 H
Glucose 102 H
Calcium 8.5
Vital Signs:
Vital Signs
Temp Pulse Resp BP Pulse Ox
97.5 F 45 17 106/44 96
08/17/24 07:00 08/17/24 06:00 08/17/24 06:00 08/17/24 06:00 08/17/24 09:30
I&O
08/16/24 08/17/24 08/18/24
06:59 06:59 06:59
Intake Total
Output Total 100 / 100 900 / 900
Balance -75 / -75 -900 / -900
[2024-08-17 11:20] LABS: Glucose - Point of Care 97 mg/dl (70-99)
[2024-08-17] MEDS: D10W IV (11:30)
[2024-08-17] MEDS: LASIX 40 MG IV (12:35)
--- NOTE | 2024-08-17 13:05 | W.PN.CD ---
Today's Communication / Plan
-
IV diuresis and PPM Monday
Impression / Plan
-
A/P: 83-year-old female with past medical history significant for paroxysmal atrial fibrillation, SVT, Chronic HFpEF, cognitive impairment and breast CA s/p left mastectomy who presented to [facility] ED shortness of breath.
She has tachy-saba syndrome and sinus node dysfunction given her history of hard to control tachycardias. I discussed PPM with her and her and they are unsure if that is waht they want.
Tachybrady syndrome now with significant bradycardia:
-PPM Monday agreed upon with who will need to consent
-Keep dopamine and atropine at bedside
-liberal diet
-follow tele and BP's
Bdulb-jz-vzwkovm HFpEF:
-IV lasix daily
- holding SGLT2i for now
nonischemic myocardial injury
- from HF POLI and worsening tachybrady
AFIB, paroxysmal:
-hold Eliquis for possible PPM
Dementia
- seems advanced and significant
Subjective: Confused
Physical Exam
Vital Signs/Labs
Vital Signs
Temp Pulse Resp BP Pulse Ox
97.3 F 41 17 105/53 96
08/17/24 11:00 08/17/24 12:35 08/17/24 06:00 08/17/24 12:35 08/17/24 09:30
08/16/24 08/17/24 08/18/24
06:59 06:59 06:59
Actual Weight 97 lb 10.636 oz 101 lb 3.075 oz
08/16/24 04:23
08/17/24 03:31
Magnesium 2.3 mg/dl (1.6-2.3) 08/17/24 03:31
Digoxin 2.3 ng/ml (0.8-2.0) H 08/17/24 03:31
08/15/24
15:56
Kfm-G-Utfudzokbyc Pept 5150
LAB Results
08/15/24 08/16/24
15:56 04:23
Troponin I 0.606 H* 0.494 H*
Physical Exam
Constitutional: Comfortable and Confusion
EENT: Anicteric
Cardiovascular: Rhythm & rate is regular and Pedal edema present
Respiratory: Other (poor inspiratory effort )
GI: Soft
Neuro/Psych: Other (oriented to person place and time; not to situation )
Data Reviewed
-
Date of Service: August 17, 2024
Medical Decision Making: Reviewed Test Results
EKG: Tracing Personally Visualized and interpreted (sinus saba )
Echo: Tracing Personally Visualized and interpreted and Report Reviewed by me
Labs: Labs Reviewed by me
[2024-08-17] MEDS: HEPARIN 5000 UNITS SC ×2 (15:48→23:07)
--- NOTE | 2024-08-17 16:21 | PTCARENOTE ---
Patient transported to IVU. Ivette YOUSIF IVU, in room to receive patient. Patient left with all known belongings.
--- NOTE | 2024-08-17 16:33 | PTCARENOTE ---
Received pt from IMU.
Pt is AOx2, confused to time. skin assessment completed. VSS. Pt repositioned. Oriented to room and unit. Call villafana within reach.
--- NOTE | 2024-08-17 21:41 | PTCARENOTE ---
Received patient at change of shift. SB on the monitor, HR in the 40s. Pt oriented to self and place, disoriented to time. Repositioning patient in bed every two hours. No complaints from pt at this time, call villafana within reach.
[2024-08-17 23:14] LABS: Glucose - Point of Care 73 mg/dl (70-99)
[2024-08-18] VITALS (8 sets, daily range): BP systolic 88–107; BP diastolic 40–68; BMI 17.1
[2024-08-18 04:35] LABS: Blood Urea Nitrogen 30 mg/dl (7-17); Calcium 8.2 mg/dl (8.4-10.2); Carbon Dioxide 32 mmol/L (22-30); Chloride 99 mmol/L (98-107); Estimated Creatinine Clearance 28 ml/min; Glucose 70 mg/dl (70-99); Magnesium 2.3 mg/dl (1.6-2.3); Potassium 4.1 mmol/L (3.5-5.1); Sodium 137 mmol/L (135-145); eGFR 50.17
[2024-08-18 06:08] LABS: Digoxin 2.2 ng/ml (0.8-2.0)
[2024-08-18] MEDS: LIDOCAINE 4% PATCH 1 PATCH TOPICAL (08:56)
[2024-08-18] MEDS: DESENEX/MITRAZOL/ZEASORB 1 APPLIC TOPICAL ×2 (08:58→20:00)
[2024-08-18] MEDS: HEPARIN 5000 UNITS SC ×3 (08:58→23:02)
[2024-08-18] MEDS: LASIX 40 MG IV (10:24)
--- NOTE | 2024-08-18 11:45 | W.PN.HOSP.TC ---
Today's Communication/Plan
-
possible pacer tomorrow
NPO after MN
Assessment / Plan
Assessment / Plan
83 old female presented with shortness of breath and heart rate was in 30s to 40s
CVS: S1-S2 saba, sm at RHB
Chest: CTA B/L
Abdomen: Soft, NT / Bowel sounds present
Extremities: B/L LE edema, better
Kyphosis
# Bradycardia
Dig level was 3.5, down to 2.2 today
Hold digoxin and amiodarone
Dopamine and atropine as needed
May need pacemaker for tachybradycardia syndrome
Patient got Digibind twice
Echo 08/16/2024-normal LV size and function. EF 55 to 60%. Moderate to severe TR. Pulmonary artery pressure 55 mmHg.
# Hypoglycemia-improved. Stop D10. Hold Farxiga
# Acute on chronic HFpEF
Lasix 40 mg again today
Hold Farxiga
She may also have right-sided heart failure
Cautious diuresis with severe pulmonary hypertension
# Acute kidney injury-questionable cardiorenal syndrome. Follow creatinine
# U-nuy-dkporrxjta
Hold Eliquis in anticipation of pacemaker
On amiodarone and digoxin as outpatient-hold.
# Ambulatory dysfunction/arthritis
# History of left breast cancer status postmastectomy
# Cognitive impairment
# Kyphosis with back pain-lidocaine patch ordered
# Underweight
# DVT prophylaxis-NAVJOT
# DNR status
Discussed with nursing
Discussed with cardiology
Anticipated Discharge: 24 - 48 hours
Subjective/Interval History
-
Date of Service: August 18, 2024
Objective Data
-
Labs:
Laboratory Results
08/18/24
03:44
Sodium 137
Potassium 4.1
Chloride 99
Carbon Dioxide 32 H
BUN 30 H
Creatinine 1.1 H
Glucose 70
Calcium 8.2 L
Vital Signs:
Vital Signs
Temp Pulse Resp BP Pulse Ox
98.3 F 45 20 104/68 90
08/18/24 07:50 08/18/24 07:50 08/18/24 07:50 08/18/24 10:24 08/18/24 07:50
I&O
08/17/24 08/18/24 08/19/24
06:59 06:59 06:59
Output Total 900 / 900
Balance -900 / -900
--- NOTE | 2024-08-18 12:39 | W.PN.CD ---
Today's Communication / Plan
-
PPM Monday
Impression / Plan
-
A/P: 83-year-old female with past medical history significant for paroxysmal atrial fibrillation, SVT, Chronic HFpEF, cognitive impairment and breast CA s/p left mastectomy who presented to [facility] ED shortness of breath.
She has tachy-saba syndrome and sinus node dysfunction given her history of hard to control tachycardias. I discussed PPM with her and her and they are unsure if that is waht they want.
Tachybrady syndrome now with significant bradycardia:
-PPM Monday agreed upon with who will need to consent
-Keep dopamine and atropine at bedside
-liberal diet
-follow tele and BP's
Tjqpg-in-sgsvohd HFpEF:
-IV lasix daily
- holding SGLT2i for now
nonischemic myocardial injury
- from HF POLI and worsening tachybrady
AFIB, paroxysmal:
-hold Eliquis for possible PPM
Dementia
- seems advanced and significant
Subjective: remains confused
Physical Exam
Vital Signs/Labs
Vital Signs
Temp Pulse Resp BP Pulse Ox
98.3 F 46 20 93/40 92
08/18/24 12:14 08/18/24 12:16 08/18/24 12:14 08/18/24 12:16 08/18/24 12:14
08/17/24 08/18/24 08/19/24
06:59 06:59 06:59
Actual Weight 101 lb 3.075 oz 99 lb 10.383 oz
08/16/24 04:23
08/18/24 03:44
Magnesium 2.3 mg/dl (1.6-2.3) 08/18/24 03:44
Digoxin 2.2 ng/ml (0.8-2.0) H 08/18/24 03:44
08/15/24
15:56
Ojq-L-Bsbkovfstvl Pept 5150
LAB Results
08/15/24 08/16/24
15:56 04:23
Troponin I 0.606 H* 0.494 H*
Physical Exam
Constitutional: No acute distress and Confusion
EENT: Anicteric
Cardiovascular: Rhythm/rate is irregular
Respiratory: Other (poor inspiratory effort )
GI: Soft
Neuro/Psych: Alert and Oriented
Data Reviewed
-
Date of Service: August 18, 2024
EKG: Tracing Personally Visualized and interpreted (saba)
Echo: Report Reviewed by me
Labs: Labs Reviewed by me
--- NOTE | 2024-08-18 20:50 | PTCARENOTE ---
Received patient at change of shift. SR on the monitor, HR in the 80s. VSS on 3L. NPO at midnight. No complaints from pt at this time, call villafana within reach.
[2024-08-19] VITALS (13 sets, daily range): BP systolic 96–128; BP diastolic 52–81; BMI 16.5
[2024-08-19] MEDS: TYLENOL/FEVERALL 650 MG RECTAL (02:32)
[2024-08-19 04:19] LABS: Blood Urea Nitrogen 27 mg/dl (7-17); Calcium 8.1 mg/dl (8.4-10.2); Carbon Dioxide 33 mmol/L (22-30); Chloride 99 mmol/L (98-107); Digoxin 1.7 ng/ml (0.8-2.0); Estimated Creatinine Clearance 27 ml/min; Glucose 60 mg/dl (70-99); Potassium 4.1 mmol/L (3.5-5.1); Sodium 135 mmol/L (135-145); eGFR 50.17
[2024-08-19 04:50] LABS: Glucose - Point of Care 79 mg/dl (70-99)
--- NOTE | 2024-08-19 05:26 | PTCARENOTE ---
Patient unable to get comfortable in bed, complaining of 7/10 back pain. Refusing PO pain medications because they 'hurt her stomach'. Rectal Tylenol ordered by GORDO Erazo. AM labs show glucose of 60. Accucheck obtained, 79.
[2024-08-19] MEDS: LIDOCAINE 4% PATCH 1 PATCH TOPICAL (09:00)
[2024-08-19] MEDS: DESENEX/MITRAZOL/ZEASORB 1 APPLIC TOPICAL ×2 (09:01→22:17)
[2024-08-19] MEDS: HEPARIN 5000 UNITS SC ×3 (09:01→23:46)
--- NOTE | 2024-08-19 10:08 | W.PN.CD ---
Today's Communication / Plan
-
- PPM Today and resume Amiodarone then along with Metoprolol
Impression / Plan
-
A/P: 83-year-old female with past medical history significant for paroxysmal atrial fibrillation, SVT, Chronic HFpEF, cognitive impairment and breast CA s/p left mastectomy who presented to [facility] ED shortness of breath.
She has tachy-saba syndrome and sinus node dysfunction given her history of hard to control tachycardias. I discussed PPM with her and her and they are unsure if that is waht they want.
Tachybrady syndrome now with significant bradycardia:
-PPM today agreed upon with who will need to consent
-Keep dopamine and atropine at bedside
-liberal diet
-follow tele and BP's
Atrial tachycardia
- Patient went into AT with 2:1 AV conduction this AM
- She had few epsiodes of going in and out of it but is in AT now
- With severe bradycardia at baseline, cannot control or suppress AT without the presence of pacemaker
- Plan for PPM
Ofnmx-hw-tawnrcw HFpEF:
-IV lasix daily
- holding SGLT2i for now
nonischemic myocardial injury
- from HF POLI and worsening tachybrady
AFIB, paroxysmal:
-hold Eliquis for possible PPM
Dementia
- seems advanced and significant
Subjective: remains confused.
Physical Exam
Vital Signs/Labs
Vital Signs
Temp Pulse Resp BP Pulse Ox
98.7 F 95 18 96/59 93
08/19/24 07:57 08/19/24 08:00 08/19/24 07:57 08/19/24 07:59 08/19/24 07:59
08/18/24 08/19/24 08/20/24
06:59 06:59 06:59
Actual Weight 45.2 kg 43.5 kg
08/16/24 04:23
08/19/24 02:42
Magnesium 2.3 mg/dl (1.6-2.3) 08/18/24 03:44
Digoxin 1.7 ng/ml (0.8-2.0) 08/19/24 02:42
08/15/24
15:56
Xxv-G-Zxwyyprvrlr Pept 5150
Physical Exam
Constitutional: No acute distress, Comfortable and Confusion
EENT: Anicteric and Moist mucous membranes
Cardiovascular: Rhythm & rate is regular, Pedal edema is absent and JVD pressure is normal
Respiratory: Respiratory effort normal and Lungs clear to auscul.
GI: Soft, Non tender and Normal bowel sounds
Neuro/Psych: Alert and Motor deficits absent
Data Reviewed
-
Date of Service: August 19, 2024
Medical Decision Making: Reviewed Test Results, Test Interpretation and Review of Case with other Provider
EKG: Tracing Personally Visualized and interpreted
Echo: Report Reviewed by me
Labs: Labs Reviewed by me
Old Records: Reviewed
--- NOTE | 2024-08-19 10:57 | PN.CDI ---
CDI
- -
CDI:
Physician Documentation Request
Admit Date: 08/15/24 20:49
Dear Doctor Lázaro,
Please review the following and provide your response in the progress notes.
Clinical Indicators:
Nurses' Assessment, 08/16
Selected Entries
08/16/24
13:14
Pressure injury stage [Lower Back] Stage 1
Physician documentation of the type and location of wounds is required for compliant documentation. Based on the above clinical findings and your assessment, please provide the following in your progress note:
Yes, Stage 1 pressure injury lower back, POA
No, Stage 1 pressure injury lower back
Other (please specify)
Location of the ulcer/wound, including laterality.
Type (etiology) of ulcer/wound:
- Arterial (ischemic) ulcer
- Pressure (decubitus) ulcer
- Other
- Unable to determine
For a pressure ulcer, please also include the stage* of the ulcer:
- Stage 1 - Skin intact, non-blanchable redness
- Stage 2 - Partial thickness loss of dermis, includes intact or open blister
- Stage 3 - Full thickness tissue not including bone, tendon or muscle
- Stage 4 - Full thickness tissue loss, including exposed bone, tendon or muscle
Use of terms such as suspected, likely, concern for, or probable (associated with a specific diagnosis that is being evaluated, monitored, or treated as if it exists) are acceptable and can be coded in the inpatient setting, when documented at the
time of discharge.
Thank you,
Yeni Goodrich RN BSN CCDS
CDI Specialist
Please contact via tiger text
Please use your independent medical judgment in providing your response.
*Source: National Pressure Ulcer Advisory Panel (NPUAP)
--- NOTE | 2024-08-19 11:02 | PN.CDI ---
CDI
- -
CDI:
Physician Documentation Request
Admit Date: 08/15/24 20:49
Dear Doctor Lázaro,
Please review the following and provide your response in the progress notes.
Clinical Indicators:
08/17/24 04:30 - Patient Care Note
#...Remains in sinus saba with first degree in the 40s-50s.
#Oxygen weaned from 6 to 2 liters NC.
Selected Entries
08/16/24
01:59 08/16/24
13:14 08/16/24
20:41
Oxygen Mode of Delivery
Nasal Cannula flow liters per minute 6 6 6
08/17/24
09:30 08/17/24
16:26
Oxygen Mode of Delivery Room air
Nasal Cannula flow liters per minute 2
Based on the above and your clinical assessment, please clarify which of the following accurately represents the patient's respiratory status:
Acute respiratory failure
Hypoxia
Other(please specify)
Additional information for Respiratory Failure:
Recognized criteria for Respiratory Failure (Source: [facility] Hospitalist Feb 2013)
Symptoms Please indicate type if known
1. Tachypnea, SOB, dyspnea Hypoxic
2. Use of accessory muscles Hypercapnic
3. Pallor or cyanosis Hypoxic and Hypercapnic
4. Anxiety or restlessness
5. Unable to speak in full sentences
Supplemental O2 of > 40% (5LPM) Intubation is not required
Use of terms such as suspected, likely, concern for, or probable (associated with a specific diagnosis that is being evaluated, monitored, or treated as if it exists) are acceptable and can be coded in the inpatient setting, when documented at the
time of discharge.
Thank you,
Yeni Goodrich RN BSN CCDS
CDI Specialist
Please contact via tiger text
Please use your independent medical judgment in providing your response.
--- NOTE | 2024-08-19 11:49 | W.PN.HOSP.TC ---
Today's Communication/Plan
-
Pace maker today
Discharge tomorrow
Assessment / Plan
Assessment / Plan
83 old female presented with shortness of breath and heart rate was in 30s to 40s
CVS: S1-S2 saba, sm at RHB
Chest: CTA B/L
Abdomen: Soft, NT / Bowel sounds present
Extremities: B/L LE edema, much better
Kyphosis
# Bradycardia
Dig level was 3.5, down to 1.7 today
HR better
Hold digoxin and amiodarone
Dopamine and atropine as needed
Patient got Digibind twice
Echo 08/16/2024-normal LV size and function. EF 55 to 60%. Moderate to severe TR. Pulmonary artery pressure 55 mmHg.
Plan for pacemaker placement
# Hypoglycemia-improved. Hold Farxiga
# Acute on chronic HFpEF
Hold Farxiga
She may also have right-sided heart failure
Cautious diuresis with severe pulmonary hypertension
# Acute kidney injury-questionable cardiorenal syndrome. Follow creatinine
# U-pml-jlqvsykyoz
Hold Eliquis in anticipation of pacemaker
On amiodarone and digoxin as outpatient-hold.
# Ambulatory dysfunction/arthritis
# History of left breast cancer status postmastectomy
# Cognitive impairment
# Kyphosis with back pain-lidocaine patch ordered
# Underweight
# DVT prophylaxis-NAVJOT
# DNR status
Discussed with nursing
Discussed with cardiology
Anticipated Discharge: Within 24 hours
Subjective/Interval History
-
Date of Service: August 19, 2024
Objective Data
-
Labs:
Laboratory Results
08/19/24
02:42
Sodium 135
Potassium 4.1
Chloride 99
Carbon Dioxide 33 H
BUN 27 H
Creatinine 1.1 H
Glucose 60 L
Calcium 8.1 L
Vital Signs:
Vital Signs
Temp Pulse Resp BP Pulse Ox
97.5 F 95 16 96/59 92
08/19/24 11:28 08/19/24 10:00 08/19/24 11:28 08/19/24 07:59 08/19/24 11:28
I&O
08/18/24 08/19/24 08/20/24
06:59 06:59 06:59
Output Total 500 / 500
Balance -500 / -500
[2024-08-19] MEDS: VANCOCIN 200 IV (13:19)
--- NOTE | 2024-08-19 13:41 | CM ---
Addendum entered by Ashley Salomon 08/19/24 14:03:
Telephone call to [facility] to make the referral. Sent referral. Will need PT and OT evaluations.
Original Note:
Reviewed chart. Met with Mr. Mccloud to review discharge plans. Mrs. Mccloud was in the Cardiac Cath for her PPM. He states prior to admission she was at home with him. He states they reside in a one story home with one step to enter. He states
prior to admission she was using a rolling walker. He states he assists her with her showering. He states she can feed herself, and dress herself. He states she was current with [facility]. He states she was also in [facility] in the past. He would be willing to have her return to [facility] if needed. Will need to have Physical and occupational therapy evaluations to see if she will need SNF. She will need an auth from her insurance for
SNF/Rehab. He states she has a prescription plan and uses [facility]. Medical work-up in progress. The discharge plan is to go to SNF/Rehab. if indicated and approved by insurance versus home with spouse and resumption of [facility] when medically stable.
[2024-08-19 15:07] LABS: Vitamin B12 569 pg/ml (239-931)
--- NOTE | 2024-08-19 15:21 | ITS.CL.PACE ---
Tank Wagon Driver - Pacemaker Implant
Pacemaker Implant
Procedure Report:
Dual Chamber Pacemaker Placement:
Ms. Mccloud is a very pleasant 83 yrs old woman for paroxysmal atrial fibrillation, SVT, Chronic HFpEF, cognitive impairment and breast CA s/p left mastectomy with hx of tachy-saba syndrome and sinus node dysfunction given her history of hard to
control tachycardias presented with junctional espcape rhythm in 40s bpm and had gone into atrial flutter wtith 2:1 AV conduction is recommended a dual chamber pacemaker placement.
She does have hx of breast CA and axillary lymph nodes removal from the left side and will place right sided device.
Patient had breast surgery on the left side and the right sided device was recommended.
Indications: Sick sinus syndrome with atrial fibrillation and tachy-saba syndrome
Date of the Procedure: 08/19/2024
Pre-Operative Diagnosis: Sick sinus syndrome with atrial fibrillation and tachy-saba syndrome
Post-Operative Diagnosis: Sick sinus syndrome with atrial fibrillation and tachy-saba syndrome
Procedure Performed: DUAL CHAMBER PACEMAKER IMPLANTATION
Performing Physician:
Anjali Chi MD
Anesthesia:
See anesthesia records
Pre-operative antibiotics:
Ancef 2gm IV
Detailed Description of the Procedure:
The patient was identified using hospital identification and informed consent obtained for the procedure. The risks were explained including, but not limited to: Bleeding, infection, arrhythmia, stroke, vascular/cardiac/lung puncture, surgery,
pacemaker dependency/device malfunction. All questions were answered.
The patient was brought to the electrophysiology laboratory in stable condition in fasting state. Continuous electrocardiographic and hemodynamic monitoring was initiated.
The initial rhythm was junctional escape rhythm.
A surgical pause and time out was performed immediately prior to the procedure with review of her medical history, recent labs, allergies and medications with site of procedure identified and consent noted in the chart. Antibiotics pre operatively
given. All team members concurred.
The procedure site was meticulously prepared with surgical scrub and allowed to dry with no pooling. Sterile draping was applied to cover the procedure site. The image intensifier was draped with sterile bag and positioned over the patient.
The right upper extremity venogram was done and the axillary route identified. There was patent subclavian vein. Following infiltration with local anesthetic, the axillary vein was accessed using the fluoroscopic guidance using the micro-puncture
apparatus. The vascular sheaths were introduced for lead access. The leads were advanced into the right ventricle and the right atrium.
The right ventricular lead was secured in position with an passive fixation technique at the apical septal location using the tines.
The atria lead was placed in the right atrial appendage. There was stand still atria and had no signal noted. The atrium was able to be captured and was able to conduct to RV. �
There was excellent sensing, pacing, and impedance from the leads, with no diaphragmatic stimulation at 10 V output. Bovie cautery, antibiotics, and fluoroscopy were used.
Pursestring suture was applied at the insertion of the leads.
The sheaths were withdrawn, and the thresholds remained acceptable. The leads were secured in position at the venous entry site with 2-0 Ethibond. A pocket was fashioned contiguous to the incision. The electrode terminals were connected to the pulse
generator, which was placed into the pocket. The wound was irrigated thoroughly with antibiotic solution.
The wound was closed in 3 layers using 2-0 Vloc then two layers of 4-0 Monocryl sutures to the dermis. Steri-strips were applied externally and covered with Aquacel bandage.
Procedure End:
The procedure was tolerated well.
Estimated Blood loss:
5 cc
Specimens Removed:
No cultures and no specimens were obtained. No intraoperative pathology was identified.
Fluoro time:
3.0 min / 5.97mGy
Urine output:
None
Packs / Drains/ Tubes:
None
Instrument / Sponge Count Correct:
Yes
Complications of the Procedure:
None
Condition of Patient at Time of Transfer:
Hemodynamically stable with no neurological or vascular compromise.
Device information:�
Generator: Miiix; Model: W1DR01; Serial # [id number]�
Atrial Lead:
MedYbrain; Model: 4574-45; Serial # [id number]�
Measured data in the right atrium was stand still and impedance of 532 ohms and threshold of 5 V at 0.4ms.
RV Lead:
Medtronic; Model: 4074-52; Serial # [id number]
Measured data in the RV lead was sensing of 5 mV, impedance of 646 ohms and threshold of 1.0 V at 0.4ms�
Saba parameter settings were AAIR < = > DDDR 60-130 bpm. �
����������� Mode Switch: On
����������� Paced AV interval: 180ms
����������� Sensed AV interval: 150 ms.
����������� Rate Adaptive A-V Interval: Off
Output parameters:
����������������������� Amplitude (V)������������� Pulse Width (ms)������� Sensitivity (mV)
����������� RA: ���� 3.5 ����������������� 0.4������������������ 0.3
����������� RV:����� 3.5������������������ 0.4������������������ 0.9
Summary:
Successful implantation of MRI compatible dual chamber pacemaker
Results/Recommendations:
-Please follow up CXR�
1. Please provide patient with adequate pain control�
Instructions to be given to patient:�
- Please follow up with [facility] at [address] [place] [address] ([phone]) to get your wound checked within 14 days of your discharge.
- Do not wet incision site until after it is evaluated at cardiology clinic. No soaking or bath until then. Showers or Sponge baths are OK.�Dab dry the area after a shower.
- Do not lift right elbow above shoulder, particularly with sudden jerking movements, for 1 month�
- Do not lift anything weighing more than 10 pounds with the right arm for 1 month�
- If you notice any fevers, shortness of breath, lightheadedness, chest pain, or worsening swelling in the wound site, please contact the arrhythmia clinic, contact your cocoa roaster, or present to the hospital for evaluation.�
Anjali Chi MD
Electrophysiology
[2024-08-19] MEDS: AZACTAM 2000 MG IV (17:15)
[2024-08-19] MEDS: PACERONE 200 MG PO (17:15)
[2024-08-19] MEDS: STERILE WATER FOR INJECTION 10 ML IV (17:15)
--- NOTE | 2024-08-19 18:48 | PTCARENOTE ---
~[id number]: Handoff report received from jules RN. Pt A x self and place at this time; 93% on RA; SBP 90s-100s. Pt c/o 6/10 back pain, scheduled lidocaine patch applied, pt refuses offer of any other meds at this time. Frequent turning and
repositioning utilized. Foam applied to sacrum and spine and heels. Buttock pink and blanchable. Heels elevated off bed. Purewick in place, perineum cleansed, desenex powder applied. All needs met at this time, call villafana within reach.
~[id number]: Patient in bed at this time. NPO for PPM procedure. gave consent with Dr. Chi this AM.
~1230: Gave report to EP lab. HR 96 atach at this time.
~1258: Patient has 3.5 second pause, then HR 46, appears junctional. EP lab aware.
~1320: Vanco started, EP lab transfered patient to procedure area. HR remains 46 at this time.
~1530: Received report from nursery laborer/EP lab.
~1600: Patient back from nursery laborer/EP with R sided PPM. Site dressed with steristrips and acquacel, CDI at this time, limb immobilizer on. EKG obtained, AV paced at this time rate 60. Call villafana within reach.
~1730: Crushed amio in applesauce, patient had difficulty swallowing and said 'it feels stuck,' patient also visibly had difficulty swallowing. Vitamin D2 gel capsule held, Dr. Sesay made aware, verbal order placed for swallow eval.
~[id number]: Portable chest xray for post-op PPM insertion check. Handoff report given to coretta YOUSIF.
[2024-08-20] VITALS (8 sets, daily range): BP systolic 117–136; BP diastolic 57–79; PULSE 64–67; O2SAT 94; BMI 16.3
[2024-08-20] MEDS: OCEAN, SALINE MIST 1 SPRAYS NASAL ×2 (01:09→15:09)
--- NOTE | 2024-08-20 04:15 | W.PN.UPDATE ---
Update Note
Progress Note Update
Patient c/o not being able to swallow.�Pt w/upper airway congestion, poor effort to clear w/cough.�Patient unable to clear secretions.�Pt declined suctioning. Ordered [place] spray to help thin secretions.�Speech consulted. Orders placed for NPO,
except meds.�
--- NOTE | 2024-08-20 05:01 | PTCARENOTE ---
Addendum entered by Nafisa Villagran RN 08/20/24 07:18:
Pt with minimal urine output this shift, bladder scan for 77ml.
Original Note:
Pt stated ' I can't swallow'. pt c/o that phlegm stuck in her throat. Pt refused suction and unable to cough. Pt tried to drink small sips of water, however did show signs of aspiration. new order for NPO. Speech and video swallow evaluation pending.
[2024-08-20 05:55] LABS: Hematocrit 32.7 % (37.0-47.0); Hemoglobin 10.7 g/dL (12.0-16.0); Mean Corp Hgb Conc. 32.7 g/dL (33.0-37.0); Mean Corpuscular Hgb 34.3 pg (27.0-31.0); Mean Corpuscular Volume 104.8 fL (81.0-99.0); Mean Platelet Volume 9.5 fL (7.4-10.4); Platelet Count 189 10^3/uL (130-400); Red Blood Cell Count 3.12 10^6/uL (4.20-5.40); Red Cell Dist. Width 16.2 % (11.5-14.5); White Blood Cell Count 4.6 10^3/uL (4.8-10.8)
[2024-08-20 06:20] LABS: Blood Urea Nitrogen 27 mg/dl (7-17); Calcium 8.5 mg/dl (8.4-10.2); Carbon Dioxide 34 mmol/L (22-30); Chloride 99 mmol/L (98-107); Estimated Creatinine Clearance 33 ml/min; Glucose 62 mg/dl (70-99); Magnesium 2.2 mg/dl (1.6-2.3); Potassium 4.3 mmol/L (3.5-5.1); Sodium 136 mmol/L (135-145); eGFR > 60.00
--- NOTE | 2024-08-20 07:32 | W.PN.CD ---
Today's Communication / Plan
-
- Resume amiodrone and Eliquis.
Impression / Plan
-
A/P: 83-year-old female with past medical history significant for paroxysmal atrial fibrillation, SVT, Chronic HFpEF, cognitive impairment and breast CA s/p left mastectomy who presented to [facility] ED shortness of breath.
She has tachy-saba syndrome and sinus node dysfunction given her history of hard to control tachycardias. I discussed PPM with her and her and they are unsure if that is waht they want.
Tachybrady syndrome now with significant bradycardia:
-s/p dual chamber PPM - Medtronic 08/19/24
- Atrial paced rhythm this AM
- Restart Amiodarone.
-follow tele and BP's
Atrial tachycardia
- Amiodarone restarted
- Now atrial paced rhythm
- Stand still atria noted at the time of implant
- Slowly waking up and the thresholds are improving.
Iaxys-qi-nazadaq HFpEF:
- Euvolemic to dry now.
- holding SGLT2i for now
- Cr has started to come down with improved cardiac output with higher rate.
AFIB, paroxysmal:
-Resume Eliquis now post PPM
Dementia
- seems advanced and significant
Subjective: remains confused.
Physical Exam
Vital Signs/Labs
Vital Signs
Temp Pulse Resp BP Pulse Ox
97.7 F 66 16 117/57 94
08/20/24 04:36 08/20/24 04:37 08/20/24 04:36 08/20/24 04:37 08/20/24 04:37
08/19/24 08/20/24 08/21/24
06:59 06:59 06:59
Actual Weight 43.5 kg 43 kg
08/20/24 04:48
08/20/24 04:48
Magnesium 2.2 mg/dl (1.6-2.3) 08/20/24 04:48
Digoxin 1.7 ng/ml (0.8-2.0) 08/19/24 02:42
08/15/24
15:56
Cfp-J-Pfgsbrfdchr Pept 5150
Physical Exam
Constitutional: No acute distress, Comfortable and Confusion
EENT: Anicteric and Moist mucous membranes
Cardiovascular: Rhythm & rate is regular, Pedal edema is absent and JVD pressure is normal
Respiratory: Respiratory effort normal and Lungs clear to auscul.
GI: Soft, Non tender and Normal bowel sounds
Neuro/Psych: Alert and Motor deficits absent
Other: Cardiac Device Site
Data Reviewed
-
Date of Service: August 20, 2024
Medical Decision Making: Reviewed Test Results, Test Interpretation and Review of Case with other Provider
EKG: Tracing Personally Visualized and interpreted
Echo: Report Reviewed by me
X-Ray/CT/US/MRI/NUC/PET: Image Personally Visualized and interpreted
Labs: Labs Reviewed by me
Old Records: Reviewed
[2024-08-20] MEDS: LIDOCAINE 4% PATCH 1 PATCH TOPICAL (08:26)
[2024-08-20] MEDS: VITAMIN D3 (cholecalciferol) 25 MCG PO (08:26)
[2024-08-20] MEDS: LASIX 20 MG IV (08:26)
[2024-08-20] MEDS: PACERONE 200 MG PO (08:26)
[2024-08-20] MEDS: DESENEX/MITRAZOL/ZEASORB 1 APPLIC TOPICAL ×2 (08:27→20:51)
--- NOTE | 2024-08-20 10:01 | W.PN.HOSP.TC ---
Addendum entered and electronically signed by Stephanie Sesay MD 08/20/24 13:47:
Stage I pressure injury of the back present on admission
Acute hypoxic respiratory failure-better
Original Note:
Today's Communication/Plan
-
FEES swallow test today
Restart Eliquis tonight
Needs rehab placement
Assessment / Plan
Assessment / Plan
83 old female presented with shortness of breath and heart rate was in 30s to 40s
CVS: S1-S2 saba, sm at RHB
Chest: CTA B/L
Abdomen: Soft, NT / Bowel sounds present
Extremities: Not much LE edema today
Kyphosis
# Bradycardia
Dig level was 3.5, down to 1.7
Hold digoxin -Patient got Digibind twice. Will not restart.
Amio restarted
Echo 08/16/2024-normal LV size and function. EF 55 to 60%. Moderate to severe TR. Pulmonary artery pressure 55 mmHg.
Status post pacemaker placement on 08/19/2024
# Hypoglycemia-improved restart Farxiga
# Acute on chronic HFpEF
Farxiga
She may also have right-sided heart failure
Volume status improved much with Lasix as needed
# Acute kidney injury- cardiorenal syndrome. Creatinine has normalized
# U-omx-nxnnspqvje
Restart Eliquis
On digoxin as outpatient-will not restart
# Ambulatory dysfunction/arthritis
# History of left breast cancer status postmastectomy
# Cognitive impairment
# Kyphosis with back pain-lidocaine patch ordered
# Underweight
# DVT prophylaxis-Eliquis restarted
# DNR status
Discussed with nursing
Discussed with cardiology
Anticipated Discharge: Within 24 hours
Subjective/Interval History
-
Date of Service: August 20, 2024
Objective Data
-
Labs:
Laboratory Results
08/20/24
04:48
WBC 4.6 L
Hgb 10.7 L
Hct 32.7 L
Plt Count 189
Sodium 136
Potassium 4.3
Chloride 99
Carbon Dioxide 34 H
BUN 27 H
Creatinine 0.9
Glucose 62 L
Calcium 8.5
Vital Signs:
Vital Signs
Temp Pulse Resp BP Pulse Ox
97.7 F 61 16 121/60 95
08/20/24 04:36 08/20/24 08:26 08/20/24 07:41 08/20/24 08:26 08/20/24 08:00
I&O
08/19/24 08/20/24 08/21/24
06:59 06:59 06:59
Intake Total 100 / 100
Output Total 500 / 500 275 / 275
Balance -500 / -500 -175 / -175
--- NOTE | 2024-08-20 10:35 | CM ---
Addendum entered by Ashley Salomon 08/20/24 13:57:
Received telephone call from [facility] ANF Admission who confirms ability to acept today. Telephoone call to [facility] to precert the SNF. Approved SNF Rehab. from 08/20/24 to 08/26/24 with NRD due 08/26/24. The telephone number for
next review is [phone]. The auth number is [id number]. If she need 02 she will need ambulance transportation. The auth. number for [facility] is [id number]. Updated RN and attending physician. Telephone call to [facility]
Living admission with auth number. The report number is [phone] and the fax number is [phone]. Medical work-up in progress. The discharge plan is to go to [facility] when medically stable.
Original Note:
Reviewed chart. Met with and Mrs. Mccloud to review discharge plans. We reviewed SNF/Rehab. They are agreeable to having referrals sent to [facility] and [facility]. Telephone call to [facility] SNF Admission to check on bed
availability. Left message. Sent updated clinical information. Telephone call to [facility] Admission to make the referral. Referral sent. Will need to pre-cert with her insurance when bed available. Medical work-up in progress. The
discharge plan is to go to SNF/Rehab. when bed available and approved by insurance when meidcally stable.
[2024-08-20] MEDS: SENOKOT 8.6 MG PO (12:22)
[2024-08-20] MEDS: ROXICODONE 2.5 MG PO (12:22)
--- NOTE | 2024-08-20 15:47 | W.PN.UPDATE ---
Update Note
Progress Note Update
D/W Speech therapy.
Patient failed speech evaluation. Aspirated everything . Left vocal cord palsy noted.
Patient cannot get MRI with pacemaker now
Check head CT. Also CT chest with
Spoke to patient's updated regarding failed a video swallow.
ENT eval
Get CT neck with contrast
Discussed about PEG tube versus hospice.
He will talk to patient's sister
Total time spent over 50 minutes today
--- NOTE | 2024-08-20 17:38 | PTOTSP ---
Speech Therapy
FEES completed at bedside - Summary of findings. Refer to report for full assessment.
Limited to no left vocal fold motility likely contributing to aspiration events and and weak ineffective cough. Piecemeal oral transfer across trials with oral stasis falling over tongue base at times to level of pyriform sinuses prior to secondary
swallows. Epiglottis with posterior movement but did not appear to invert. Pharyngeal weakness also suspected as evidenced by vallecula and pyriform sinus stasis. Laryngeal penetration and aspiration occurred during the swallow but also arose from
pharyngeal stasis.
Recommend:
NPO if consistent with goals of care. Allow sips of thin water/ice chips in between meals following oral care per [facility] protocol. If patient/family agree to oral diet despite risks, recommend Level 4/puree and thin liquids by single sips by cup or
straw.
[2024-08-20] MEDS: D10W 1000 IV (18:36)
--- NOTE | 2024-08-20 18:45 | PTCARENOTE ---
~[id number]: handoff report received from nightshift RN. Pt A x self and place at this time, A paced/ AV paced 60s-70s on tele. R upper chest dressing CDI, limb immobilizer on until around 1600. pt c/o back pain, scheduled lidocaine patch applied,
however refuses other pain meds offered. NPO at this time pending video swallow. Pt seen by speech therapy who recommends a bedside FEES test. pt incontinent of urine, purewick in place, I/Os monitored. 20 lasix given per order, output caught on
incontinence pad however. Pt OOB to chair with walker with PT today, tolerating well at this time. All needs met, call villafana within reach.
~[id number]: Patient OOB in chair at this time. Pt repeated attempts to move R arm, frequent education by nursing staff provided. Pt c/o R arm and back pain, provider made aware, PRN prakash ordered and given.
~[id number]: Prakash with + effect. FEES video swallow completed. Per speech, L sided vocal cord not properly working, patient to be strict NPO at this time, Dr. Sesay made aware.
~[id number]: CT head w/o contrast and CT neck w/ contrast ordered. New IV placed for CT. All needs met at this time, call villafana within reach. B/L LE +2 edema L > R, provider aware, tubigrip compression stockings applied. PCT brought patient down to CT
scan.
~[id number]: IVF hung per order. Handoff report given to nightshift RN.
[2024-08-21] VITALS (7 sets, daily range): BP systolic 108–129; BP diastolic 57–72; BMI 16.6
[2024-08-21] MEDS: HEPARIN 5000 UNITS SC ×3 (01:13→21:19)
--- NOTE | 2024-08-21 02:03 | PTCARENOTE ---
Strict NPO status maintained this shift , Eliquis change to heparin SC by hospitalist GORDO Herrera. Occasional moist cough noted, crackles present bibasilarly (L>R), pulse ox 4L O2 93-94%. Pt. OOB with assist x 1 to use BSC, some TARIQ assessed. Right
chest wall pacer site dressing intact with scant amount old drainage, good sensation and normal radial pulse assessed right hand. Pt. sleeping.
[2024-08-21 03:51] LABS: Hematocrit 32.5 % (37.0-47.0); Hemoglobin 10.7 g/dL (12.0-16.0); Mean Corp Hgb Conc. 32.9 g/dL (33.0-37.0); Mean Corpuscular Hgb 34.3 pg (27.0-31.0); Mean Corpuscular Volume 104.2 fL (81.0-99.0); Mean Platelet Volume 9.6 fL (7.4-10.4); Platelet Count 172 10^3/uL (130-400); Red Blood Cell Count 3.12 10^6/uL (4.20-5.40); Red Cell Dist. Width 16.5 % (11.5-14.5); White Blood Cell Count 4.3 10^3/uL (4.8-10.8)
[2024-08-21 04:17] LABS: Blood Urea Nitrogen 24 mg/dl (7-17); Calcium 8.7 mg/dl (8.4-10.2); Carbon Dioxide 34 mmol/L (22-30); Chloride 97 mmol/L (98-107); Estimated Creatinine Clearance 30 ml/min; Glucose 100 mg/dl (70-99); Potassium 4.2 mmol/L (3.5-5.1); Sodium 135 mmol/L (135-145); eGFR 56.25
--- NOTE | 2024-08-21 08:22 | W.PN.HOSP.TC ---
Today's Communication/Plan
-
need to discuss with d/c plans
Assessment / Plan
Assessment / Plan
83 old female presented with shortness of breath and heart rate was in 30s to 40s
# Bradycardia
Dig level was 3.5, down to 1.7
Hold digoxin -Patient got Digibind twice. Will not restart.
Amio restarted
Echo 08/16/2024-normal LV size and function. EF 55 to 60%. Moderate to severe TR. Pulmonary artery pressure 55 mmHg.
Status post pacemaker placement on 08/19/2024
# Hypoglycemia-improved restart Farxiga
#dysphagia--failed VSE--strict NPO--Dr. Sesay started PEG vs hospice discussion--trying to call --no answer and now busy
#acute hypoxic resp failure (on 4L) from Acute on chronic HFpEF--improving--if going on hospice, will stop O2--if not, will need assessment for home O2
Farxiga
She may also have right-sided heart failure
Volume status improved much with Lasix as needed
# Acute kidney injury- cardiorenal syndrome. Creatinine has normalized
# N-gbw-gygjbdlpss
Restart Eliquis
On digoxin as outpatient-will not restart
# Ambulatory dysfunction/arthritis
# History of left breast cancer status postmastectomy
# Cognitive impairment
# Kyphosis with back pain-lidocaine patch ordered
# Underweight
#wounds--POA--stage 1 pressure injury on back
# DVT prophylaxis-Eliquis restarted
# DNR status
Discussed with nursing
Discussed with cardiology
Anticipated Discharge: Within 24 hours
Subjective/Interval History
-
Date of Service: August 21, 2024
pt without c/o
has dementia
Objective Data
-
Labs:
Laboratory Results
08/21/24
02:57
WBC 4.3 L
Hgb 10.7 L
Hct 32.5 L
Plt Count 172
Sodium 135
Potassium 4.2
Chloride 97 L
Carbon Dioxide 34 H
BUN 24 H
Creatinine 1.0
Glucose 100 H
Calcium 8.7
Vital Signs:
max temp for 24 hours
08/21/24
02:49
Temp 97.9 F
Vital Signs
Temp Pulse Resp BP Pulse Ox
97.6 F 65 18 129/72 94
08/21/24 07:29 08/21/24 06:00 08/21/24 07:29 08/21/24 02:47 08/21/24 07:29
I&O
08/20/24 08/21/24 08/22/24
06:59 06:59 06:59
Intake Total 100 / 100 480 / 480
Output Total 275 / 275 525 / 525
Balance -175 / -175 -45 / -45
Review of Systems
-
Unable to obtain full review of systems at this time due to: Dementia
All other systems: Reviewed and negative
Physical Exam
-
General: Other (elderly frail appearing female)
HEENT: Normocephalic and Atraumatic
Respiratory: Clear to Auscultation; Negative Rhonchi
Cardiac: Regular Rhythm, S1/S2 and Other (pacemaker); Negative Murmur
GI: Soft, Nontender, Nondistended and Normal Bowel Sounds
Musculoskeletal: No Clubbing, No Cyanosis and No Edema
Neuro: Awake
Psych: Calm
--- NOTE | 2024-08-21 08:26 | CON.MD ---
Consultation - Medical
-
dictated.
She has a Left vocal cord paralysis, uncertain cause, probably present for at least a year, causing hoarseness and aspiration.
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
Options are:
1) Do nothing, pursue hospice care
2) feeding tube
3) vocal cord medialization, either by injection or implant.
Patient does not want surgery or feeding tube.
I had a long discussion with her Gerson and explained the above.
He wants to pursue hospice care, does not want feeding tube or surgery, understands that if she tries to swallow she will likely develop pneumonia, and will be unable to maintain adequate nutrition.
I will be happy to speak with them again if they change their mind or have further questions
--- NOTE | 2024-08-21 08:28 | W.PN.CD ---
Today's Communication / Plan
-
- PT/OT eval
- stable from cardiac stand point.
Impression / Plan
-
A/P: 83-year-old female with past medical history significant for paroxysmal atrial fibrillation, SVT, Chronic HFpEF, cognitive impairment and breast CA s/p left mastectomy who presented to [facility] ED shortness of breath.
She has tachy-saba syndrome and sinus node dysfunction given her history of hard to control tachycardias. I discussed PPM with her and her and they are unsure if that is waht they want.
Tachybrady syndrome now with significant bradycardia:
-s/p dual chamber PPM - [employer] 08/19/24
- Atrial paced rhythm this AM
- Restarted Amiodarone.
Atrial tachycardia
- Amiodarone restarted
- Now atrial paced rhythm
- Stand still atria noted at the time of implant
- Now 100% A paced and V sensed.
Ginis-mf-yjqrlvl HFpEF:
- Euvolemic to dry now.
- SGLT2i is restarted. - may be ok to hold for a week. To allow renal functions recover
- Getting fluid now. OK to start oral feeding.
AFIB, paroxysmal:
-Resume Eliquis now post PPM
Dementia
- seems advanced and significant
Subjective: remains confused. No active complaints.
Physical Exam
Vital Signs/Labs
Vital Signs
Temp Pulse Resp BP Pulse Ox
97.6 F 65 18 129/72 94
08/21/24 07:29 08/21/24 06:00 08/21/24 07:29 08/21/24 02:47 08/21/24 07:29
08/20/24 08/21/24 08/22/24
06:59 06:59 06:59
Actual Weight 43 kg 43.8 kg
08/21/24 02:57
08/21/24 02:57
Magnesium 2.2 mg/dl (1.6-2.3) 08/20/24 04:48
Digoxin 1.7 ng/ml (0.8-2.0) 08/19/24 02:42
08/15/24
15:56
Uej-V-Vxhjrbfzrbm Pept 5150
Physical Exam
Constitutional: No acute distress and Comfortable
EENT: Anicteric and Moist mucous membranes
Cardiovascular: Rhythm & rate is regular, Pedal edema is absent, JVD pressure is normal and Systolic murmur present
Respiratory: Respiratory effort normal and Lungs clear to auscul.
GI: Soft, Non tender and Normal bowel sounds
Neuro/Psych: Alert, Oriented and AO x 3
Data Reviewed
-
Date of Service: August 21, 2024
Medical Decision Making: Reviewed Test Results, Test Interpretation and Review of Case with other Provider
EKG: Tracing Personally Visualized and interpreted
Echo: Report Reviewed by me
X-Ray/CT/US/MRI/NUC/PET: Image Personally Visualized and interpreted
Labs: Labs Reviewed by me
Old Records: Reviewed
[2024-08-21] MEDS: LIDOCAINE 4% PATCH 1 PATCH TOPICAL (08:49)
[2024-08-21] MEDS: DESENEX/MITRAZOL/ZEASORB 1 APPLIC TOPICAL ×2 (08:49→21:21)
[2024-08-21] MEDS: PACERONE PO (09:23)
[2024-08-21] MEDS: VITAMIN D3 (cholecalciferol) PO (09:24)
[2024-08-21] MEDS: MORPHINE SULFATE 0.5 MG IV (11:54)
--- NOTE | 2024-08-21 11:54 | HOSPNOTE ---
Spoke with spouse about hospice and the philosophy. The patient will be going home tomorrow with hospice and will need transport OOH DNR will be needed. Equipment will be delivered in the am. Attending and CM aware.
--- NOTE | 2024-08-21 13:41 | CM ---
Reviewed chart. Received Hospice consult. Met with and Mrs. Mccloud, her RN nad [facility] [employer]. We reviewed the Hospice Philosophy. We also reviewed hospice in the home and in a SNF. We reviewed the out of pocket cost for room and board
for hospice in a fci. Mr. Mccloud would like to try to take her home with [facility]. [facility] to order all the DME. Telephone call to [facility] Case Management to cancel SNF Request and to confirm I can use the same ambulance auth
for transfer to home tomorrow. Can use the same auth number. The auth numjjber for [facility] ambulance is [id number] Unit Sec. made ambulance arrangements with [facility] for 12:30 p.m. transfer time. .Placed the OOH DNR form on the front of the
chart for doctor to complete for the transfer home. Medical work-up in progress. The discharge plan is to go home with her spouse and [facility] denise medically stable.
[2024-08-21] MEDS: D10W 1000 IV (16:25)
--- NOTE | 2024-08-21 18:57 | PTCARENOTE ---
~[id number]: Handoff report received from nightshift RN. Pt Ax self and place, A paced/ AV paced on tele in the 60s. SBPs 100s-130s. Pt seen by ENT and Hospitalist this AM. Sounds like plan is hospice, no new orders at this time. Pt appears more
drowsy today that previous days. PO meds held d/t strict NPO recommendation from speech and Eliquis changed to SubQ heparin per verbal order from Dr. Chi. Pt OOB to commode with assistance from PCT and walker. All needs met at this time, call
villafana within reach.
~8292-0729: Patient visisted by pastoral care and spoke to patientand . Hospice nurse and CM spoke with about options for hospice. Sounds like patient would like home hospice at this time; plan for d/c to home on hospice tomorrow. Pt
states 'I can't breathe,' Pulse ox 91%, O2 increased to 5L NC. Pt c/o back pain, provider aware, IV morphine given.
~8747-5742: Patient OOB to commode. After patient back in bed, spO2 88% despite encouraging to take deep breaths, 02 increased to 6L, currently satting 93%.
~1320: Pt spO2 98% on 6L, weaned to 5L NC.
~6219-8179: Pt turned and repositioned. Pt remains drowsy but easily arrouses. O2 weaned to 4L NC. Pt OOB to bedside commode, minimal UO. Ice chips given occassionally. All needs met at this time, call villafana within reach.
~1900: Handoff report given to nightshift RN.
--- NOTE | 2024-08-21 23:42 | PTCARENOTE ---
Assumed care of the pt @ 1900. Pt is AAOx2 A paced on the monitor VSS D10 IV infusing @ 50 ml/HR NPO purewick in place draining yellow urine. Call villafana within reach.
[2024-08-22] MEDS: MORPHINE SULFATE 0.5 MG IV (02:13)
[2024-08-22 02:56] VITALS: BP 118/55
[2024-08-22 03:22] LABS: Hematocrit 28.6 % (37.0-47.0); Hemoglobin 9.4 g/dL (12.0-16.0); Mean Corp Hgb Conc. 32.9 g/dL (33.0-37.0); Mean Corpuscular Hgb 34.1 pg (27.0-31.0); Mean Corpuscular Volume 103.6 fL (81.0-99.0); Mean Platelet Volume 9.3 fL (7.4-10.4); Platelet Count 145 10^3/uL (130-400); Red Blood Cell Count 2.76 10^6/uL (4.20-5.40); Red Cell Dist. Width 15.9 % (11.5-14.5); White Blood Cell Count 4.1 10^3/uL (4.8-10.8)
[2024-08-22 04:03] LABS: ALT (SGPT) 17 U/L (0-35); AST (SGOT) 27 U/L (14-36); Alkaline Phosphatase 52 U/L (38-126); Blood Urea Nitrogen 13 mg/dl (7-17); Calcium 6.9 mg/dl (8.4-10.2); Carbon Dioxide 29 mmol/L (22-30); Chloride 104 mmol/L (98-107); Estimated Creatinine Clearance 50 ml/min; Glucose 113 mg/dl (70-99); Magnesium 1.8 mg/dl (1.6-2.3); Sodium 135 mmol/L (135-145); Total Bilirubin 0.7 mg/dl (0.2-1.3); Total Protein 4.8 g/dl (6.3-8.2); eGFR > 60.00
[2024-08-22 05:27] LABS: Blood Urea Nitrogen 15 mg/dl (7-17); Calcium 8.6 mg/dl (8.4-10.2); Carbon Dioxide 36 mmol/L (22-30); Chloride 94 mmol/L (98-107); Estimated Creatinine Clearance 37 ml/min; Glucose 124 mg/dl (70-99); Potassium 3.7 mmol/L (3.5-5.1); Sodium 134 mmol/L (135-145); eGFR > 60.00
[2024-08-22 08:04] VITALS: BP 121/71
[2024-08-22] MEDS: LIDOCAINE 4% PATCH 1 PATCH TOPICAL (08:33)
[2024-08-22] MEDS: HEPARIN 5000 UNITS SC (08:33)
[2024-08-22] MEDS: DESENEX/MITRAZOL/ZEASORB 1 APPLIC TOPICAL (08:36)
--- NOTE | 2024-08-22 08:44 | W.PN.CD ---
Addendum entered and electronically signed by Jaya Padilla MD 08/22/24 11:29:
Patent is going home with hospice today; discussed with hospitalist.
Original Note:
Today's Communication / Plan
-
PPM
Lasix 40 mg PO daily
We will sign off please call with questions/concerns.
Impression / Plan
-
A/P: 83-year-old female with past medical history significant for paroxysmal atrial fibrillation, SVT, Chronic HFpEF, cognitive impairment and breast CA s/p left mastectomy who presented to [facility] ED shortness of breath.
She has tachy-saba syndrome and sinus node dysfunction given her history of hard to control tachycardias. I discussed PPM with her and her and they are unsure if that is waht they want.
Possible Hospice Care?
Tachybrady syndrome now with significant bradycardia:
-s/p dual chamber PPM - [employer] 08/19/24
- Atrial paced rhythm this AM
- Restarted Amiodarone.
Atrial tachycardia
- Amiodarone restarted
- Now atrial paced rhythm
- Stand still atria noted at the time of implant
- Now 100% A paced and V sensed.
Wzuwz-bg-vecfign HFpEF:
- Euvolemic to dry now.
- SGLT2i is restarted. - may be ok to hold for a week. To allow renal functions recover
- restart home lasix at 40 mg daily
AFIB, paroxysmal:
-Resume Eliquis now post PPM
Dementia
- seems advanced and significant
Subjective: remains confused. No active complaints.
Physical Exam
Vital Signs/Labs
Vital Signs
Temp Pulse Resp BP Pulse Ox
97.4 F 60 20 118/55 94
08/22/24 08:04 08/22/24 02:57 08/22/24 08:04 08/22/24 02:56 08/22/24 08:04
08/21/24 08/22/24 08/23/24
06:59 06:59 06:59
Actual Weight 96 lb 8.999 oz
08/22/24 03:03
08/22/24 04:44
Magnesium 1.8 mg/dl (1.6-2.3) 08/22/24 03:03
Digoxin 1.7 ng/ml (0.8-2.0) 08/19/24 02:42
08/15/24
15:56
Dgh-P-Yyrpzvkfkyk Pept 5150
Physical Exam
Constitutional: Confusion
EENT: Anicteric
Cardiovascular: Rhythm & rate is regular
Respiratory: Other (poor inspiratory effort)
GI: Soft
Neuro/Psych: Other (to name and date)
Data Reviewed
-
Date of Service: August 22, 2024
EKG: Tracing Personally Visualized and interpreted (paced)
Echo: Report Reviewed by me
Labs: Labs Reviewed by me
[2024-08-22 11:17] VITALS: BP 120/71
--- NOTE | 2024-08-22 11:31 | W.DS.TRANS ---
DC Summary - Clinical Psychologist Licensed
-
Discharge Instructions:
Sleep Apnea Risk Low
Discharge Diagnosis/Procedures Pacemaker implant for bradycardia, dysphagia
with failed video swallow, hypoglycemia, acute
hypoxic respiratory failure from acute on
chronic heart failure with preserved ejection
fraction exacerbation, acute kidney injury,
paroxysmal atrial fibrillation, amatory
dysfunction, history of left breast cancer
status post mastectomy, cognitive impairment,
kyphosis, underweight, stage I pressure injury
on back (POA)
Diet As tolerated,Regular
Activity As tolerated
Driving Restrictions No driving
Bathing Restrictions None
Other Services Hospice
Specialty Instructions Weigh Daily
Instructions: *CBC Heart Failure Instructions
Stand-Alone Forms: DC Inst - Implanted Device
Changes to Home Medications: Yes
Discharge Medications:
Home Medication Changes
Patient being discharged with initiation of home hospice per
All cardiovascular medications including diuretics and anticoagulants had been discontinued upon discharge.
Pending Results: No
[2024-08-22] MEDS: PACERONE PO (11:45)
[2024-08-22] MEDS: VITAMIN D3 (cholecalciferol) PO (11:46)
[2024-08-22] MEDS: D10W IV (11:46)
--- NOTE | 2024-08-22 12:03 | CM ---
Reviewed chart. TT to [facility] Liaison to confirm they are ready for discharge today. [facility] is ready for her to go home today. TT to attending physician and had him sign the OOH DNR. Medical work up in progress. [facility]
Ambulance has been set-up for a 12:30 p.m. transport time. Medical work-up in progress. The discharge plan is to return home with her spouse and son and [facility] when medically stable.
--- NOTE | 2024-08-22 12:46 | PTCARENOTE ---
Discussed d/c w/pt. Pt forgetful at times, yet verbalized understanding. VSS. athletic monitor and INT discontinued. Pt remains on 6 liters of O2 for transport to home. Pt's discharge instructions and belongings sent w/ pt. Pt transported to
home via ambulance stretcher at 1245.
--- NOTE | 2024-08-23 10:11 | W.HF.CON ---
Heart Failure
- LV Function
Left ventricular function study result: LV Ejection fraction >/= 50%
Ejection Fraction Percentage: 55-60
- ARNI
Patient already on ARNI: No
Heart Failure ARNI Not Indicated: LV Ejection Fraction >/= 40%
- ACEI/ARB
Patient already on ACEI/ARB: No
Heart Failure ACEI/ARB Not Indicated: LV Ejection Fraction > 40%
- Beta Angelita
Patient already on Evidence Based Beta Angelita: No
Heart Failure Evidence Based Beta Angelita Not Indicated: LV Ejection Fraction > 40%
- Mineralocorticord Receptor Antagonist
Patient already on MRA: No
Heart Failure MRA Not Indicated: LV Ejection Fraction > 40%
- SGLT-2 Inhibitor
Patient already on SGLT-2 Inhibitor: No
Heart Failure SGLT-2 Inhibitor Contraindication: Comfort Measures
- Afib Anticoagulation
Patient already on Anticoagulation for Afib: No
Heart Failure Afib Anticoagulation Contraindication: Comfort Measures Only
- NYHA CHF Classification
NYHA CHF Classification Level: Class III - Symptoms w/ min exertion, interferes w/ nml daily activity
- ACC/AHA Stage
ACC/AHA Stage: Stage C: Symptomatic Heart Failure
== END 2024-08-22 12:53 | disposition hospice, home (50) | DRG 242 ==
LOC: IVU 20:49
PROVIDERS: Emergency Medicine; Hospitalist; Internal Medicine; Internal Medicine Cardiovascular Disease; Nurse Practitioner; Nurse Practitioner Family; ADMITTING PHYSICIAN Internal Medicine; ATTENDING PHYSICIAN Internal Medicine; CONSULT PHYSICIAN Otolaryngology; EMERGENCY PHYSICIAN Emergency Medicine; FAMILY PHYSICIAN Physician Assistant Medical; OTHER PHYSICIAN Internal Medicine Cardiovascular Disease
PROC: 02H63JZ Insertion of Pacemaker Lead into Right Atrium, Percutaneous Approach (ICD-10-PCS; 2024-08-19)
PROC: 02HK3JZ Insertion of Pacemaker Lead into Right Ventricle, Percutaneous Approach (ICD-10-PCS; 2024-08-19)
PROC: 0JH606Z Insertion of Pacemaker, Dual Chamber into Chest Subcutaneous Tissue and Fascia, Open Approach (ICD-10-PCS; 2024-08-19)
DX: I49.5 Sick sinus syndrome (principal); I50.33 Acute on chronic diastolic (congestive) heart failure; J96.01 Acute respiratory failure with hypoxia; J98.11 Atelectasis; N17.9 Acute kidney failure, unspecified; Z68.1 Body mass index [BMI] 19.9 or less, adult; I47.19 Other supraventricular tachycardia; I5A Non-ischemic myocardial injury (non-traumatic); I11.0 Hypertensive heart disease with heart failure; I48.0 Paroxysmal atrial fibrillation; E78.00 Pure hypercholesterolemia, unspecified; I89.0 Lymphedema, not elsewhere classified; I07.1 Rheumatic tricuspid insufficiency; M54.50 Low back pain, unspecified; I45.10 Unspecified right bundle-branch block; R41.89 Other symptoms and signs involving cognitive functions and awareness; E16.2 Hypoglycemia, unspecified; M40.209 Unspecified kyphosis, site unspecified; R63.6 Underweight; I27.20 Pulmonary hypertension, unspecified; F03.90 Unspecified dementia, unspecified severity, without behavioral disturbance, psychotic disturbance, mood disturbance, and anxiety; L89.101 Pressure ulcer of unspecified part of back, stage 1; R13.10 Dysphagia, unspecified; J38.01 Paralysis of vocal cords and larynx, unilateral; T46.0X5A Adverse effect of cardiac-stimulant glycosides and drugs of similar action, initial encounter; Y92.9 Unspecified place or not applicable; Z66 Do not resuscitate; Z74.09 Other reduced mobility; Z87.01 Personal history of pneumonia (recurrent); Z87.891 Personal history of nicotine dependence; Z79.01 Long term (current) use of anticoagulants; Z90.12 Acquired absence of left breast and nipple; Z85.3 Personal history of malignant neoplasm of breast; Z92.21 Personal history of antineoplastic chemotherapy; Z92.3 Personal history of irradiation; Z88.0 Allergy status to penicillin; Z88.1 Allergy status to other antibiotic agents; Z88.2 Allergy status to sulfonamides; Z88.3 Allergy status to other anti-infective agents
CPT/HCPCS: 93308; 33208; 70450; 70491; 71045; 80048; 80053; 80162; 82306; 82607; 82962; 83735; 83880; 84484; 85025; 85027; 92526; 92610; 92612; 93005; 96374; 96375; 97163; 97167; 99291; C1785; C1892; C1898; J1162; Q9967